=== PATIENT | female | born 1930 | race Caucasian/White ===

== ENCOUNTER 2018-06-19 11:06 | Inpatient (IN) | payer MEDICARE, BC ==
[~2018-06-19] VITALS: Ht 162.6 cm; Wt 95.3 kg
--- NOTE | 2018-06-19 11:09 | NUR ---
PT A/OX4, BIB RA909, C/O N/V X 3 EPISODES OF EMESIS SINCE THIS AM. EMESIS YELLOW IN COLOR IN EMESIS BAG. VSS. SECONDARY COMPLAINT: ABD PAIN, PT IS UNABLE TO PROVIDE ADDITIONAL INFORMATION RE THE ABD PAIN. LAST BM APPROXIMATELY YESTERDAY, PT UNABLE TO PROVIDE ACCURATE INFORMATION. PT DENIES C/P, SOB, DIZZINESS, HEADACHE.
--- NOTE | 2018-06-19 11:10 | NUR ---
Pt unable to provide any information about current home medications.
[2018-06-19] MEDS ORDERED: ONDANSETRON 4 MG/2 ML VIAL IV ONE (11:15)
[2018-06-19] MEDS ORDERED: IV NORMAL SALINE 500 ML BAG IV ONE (11:15)
[2018-06-19] MEDS ORDERED: ONDANSETRON 4 MG/2 ML VIAL ONE (11:24)
[2018-06-19 11:29] LABS: BASOPHILS # (AUTO) 0.1 K/uL (0.0-8.0); BASOPHILS % (AUTO) 0.6 % (0.0-2.0); EOSINOPHILS # (AUTO) 0.2 K/uL (0.0-0.7); EOSINOPHILS % (AUTO) 1.8 % (0.0-7.0); HEMATOCRIT 31.7 % (31.2-41.9); HEMOGLOBIN 10.3 g/dL (10.9-14.3); LYMPHOCYTES # (AUTO) 1.5 K/uL (20.0-40.0); LYMPHOCYTES % (AUTO) 12.8 % (20.5-51.5); MEAN CORPUSCULAR HEMOGLOBIN 27.6 uug (24.7-32.8); MEAN CORPUSCULAR HGB CONC 32 g/dL (32.3-35.6); MEAN CORPUSCULAR VOLUME 85.3 fL (75.5-95.3); MONOCYTES # (AUTO) 0.9 K/uL (2.0-10.0); MONOCYTES % (AUTO) 8.1 % (0.0-11.0); NEUTROPHILS # (AUTO) 8.9 K/uL (1.8-8.9); NEUTROPHILS % (AUTO) 76.7 % (38.5-71.5); PLATELET COUNT (AUTO) 735 K/uL (179-408); RED BLOOD CELL COUNT(AUTO) 3.72 MIL/uL (3.63-4.92); WHITE BLOOD COUNT (AUTO) 11.6 K/uL (3.8-11.8)
--- NOTE | 2018-06-19 11:34 | NUR ---
PT TAKEN TO RADIOLOGY FOR CT SCAN.
[2018-06-19 11:39] LABS: CARBON DIOXIDE 23 mmol/L (21-32); CHLORIDE 100 mmol/L (98-107); CREATININE 1.7 mg/dL (0.6-1.3); GLUCOSE 228 mg/dL (74-106); POTASSIUM 4.8 mmol/L (3.5-5.1); UREA NITROGEN, BLOOD 34 mg/dL (7-18)
[2018-06-19 11:44] LABS: ALANINE AMINOTRANSFERASE 17 U/L (14-59); ALKALINE PHOSPHATASE 106 U/L (50-136); ASPARTATE AMINOTRANSFERASE 17 U/L (15-37); BILIRUBIN,DIRECT 0.1 mg/dL (0.0-0.2); BILIRUBIN,TOTAL 0.4 mg/dL (0.2-1.0); TOTAL PROTEIN, SERUM 7.9 g/dL (6.4-8.2)
--- NOTE | 2018-06-19 11:48 | NUR ---
PT BACK IN ER FROM RADIOLOGY.
[2018-06-19] MEDS ORDERED: CLONIDINE HCL 0.1 MG TABLET PO ONE (12:15)
[2018-06-19] MEDS ORDERED: CLONIDINE HCL 0.1 MG TABLET ONE (12:18)
--- NOTE | 2018-06-19 12:58 | NUR ---
PT TAKEN TO RADIOLOGY FOR CT OF ABD.
[2018-06-19] MEDS ORDERED: IV NORMAL SALINE 500 ML IV ONE (13:07)
--- NOTE | 2018-06-19 13:47 | NUR ---
PAGED EPIC FOR PANEL CALL. AWAITING CALLBACK. ATTEMPT 1.
--- NOTE | 2018-06-19 14:07 | NUR ---
ADMITTING REPORT GIVEN TO REINA NELSON.
--- NOTE | 2018-06-19 14:08 | NUR ---
Pt. admitted to TELE 318, under care of ION BENTLEY. Belongs List completed
[2018-06-19] MEDS ORDERED: DEXTROSE 50% 50 ML DISP.SYRIN IV PRN (14:30)
[2018-06-19] MEDS ORDERED: MAGNESIUM HYDROXIDE 30 ML LIQUID UDC PO PRN (14:30)
[2018-06-19] MEDS ORDERED: HYDROMORPHONE 1 MG/1 ML DISP.SYRIN IV PRN (14:30)
[2018-06-19] MEDS ORDERED: TEMAZEPAM 15 MG CAPSULE PO PRN (14:30)
[2018-06-19] MEDS ORDERED: Z GUARD REMEDY PASTE 57 GM TUBE TOP PRN (14:30)
--- NOTE | 2018-06-19 15:00 | NUR ---
Patient admit to tele 318, BP 152/55 HR 67 at the moment no distress, RA at 96% Safety reinforced
[2018-06-19 15:44] VITALS: BP 152/55
[2018-06-19 16:00] VITALS: BP 152/55
[2018-06-19] MEDS ORDERED: IV NORMAL SALINE 250 ML BAG IV ONE ×2 (16:00)
[2018-06-19] MEDS ORDERED: IV NORMAL SALINE 250 ML IV ONE ×2 (16:15)
[2018-06-19] MEDS: ONDANSETRON 4 MG/2 ML VIAL IV PRN (16:24)
[2018-06-19] MEDS: BLOOD SUGAR DIAGNOSTIC 1 EACH STRIP VI SCH ×2 (16:38→21:01)
[2018-06-19] MEDS: INSULIN REGULAR, HUMAN 300 UNIT/3 ML VIAL SQ PRN (16:51)
[2018-06-19] MEDS: IV NS 1000 ML 1,000 ML IV PRN (16:57)
[2018-06-19 17:20] LABS: *BILIRUBIN,URIN NEGATIVE (NEGATIVE); *BLOOD, URINE 1+ (NEGATIVE); *COLOR,URINE LIGHT YELLOW (YELLOW); *KETONES,URINE NEGATIVE (NEGATIVE); *UROBILINOGEN,URINE 0.2 E.U./dl (NORMAL); LEUKOCYTE ESTERASE ,URINE NEGATIVE (NEGATIVE); NITRITE, URINE NEGATIVE (NEGATIVE); UGLUCOSE NEGATIVE (NEGATIVE)
[2018-06-19 17:37] LABS: *CLARITY,URINE SLIGHTLY HAZY (CLEAR)
[2018-06-19 17:38] LABS: RBC,URINE 20-50 /HPF (0-3)
[2018-06-19 17:39] LABS: BACTERIA,URINE FEW /HPF (NONE SEEN); SQUAMOUS EPITHELIAL CELL,UR FEW /HPF (NONE SEEN); WBC,URINE 0-3 /HPF (0-3)
[2018-06-19] MEDS ORDERED: FURO20TA4 PO (18:17)
[2018-06-19] MEDS ORDERED: SOLI10TA2 PO (18:17)
[2018-06-19] MEDS ORDERED: SITA50TA PO (18:18)
[2018-06-19] MEDS ORDERED: NYST15PO4 TP (18:29)
[2018-06-19] MEDS ORDERED: PANT40TA4 PO (18:29)
[2018-06-19] MEDS ORDERED: ATOR20TA PO (18:29)
[2018-06-19] MEDS ORDERED: PIOG30TA10 PO (18:29)
[2018-06-19] MEDS ORDERED: ASPI81TA31 PO (18:29)
[2018-06-19] MEDS ORDERED: FEBU40TA PO (18:29)
[2018-06-19] MEDS ORDERED: METO100T7 PO (18:29)
[2018-06-19] MEDS ORDERED: GLIM4TAB3 PO (18:29)
[2018-06-19] MEDS: ACETAMINOPHEN 325 MG TABLET PO PRN (18:30)
[2018-06-19] MEDS ORDERED: TICA90TA PO (18:32)
--- NOTE | 2018-06-19 18:55 | NUR ---
PATIENT IS AO 4, NO DISTRESS AT THE MOMENT ON RA 96%, HEADACHE COMPLAINED --> TYLONOL GIVEN, NAUSEA TREATED WITH ZOFRAN ONCE, FLUIDS RUNNING AT 75CC/HR,BS CONTROL W INSULIN, MEDICATION RECONSIL IS DONE SAFETY MAINTAINED
[2018-06-19 19:31] LABS: IRON, SERUM 27 ug/dL (50-175)
[2018-06-19 19:45] LABS: FERRITIN 75 ng/mL (8-252)
--- NOTE | 2018-06-19 20:00 | NUR ---
PATIENT AWAKE IN BED, AAOX3. DENIES PAIN OR ANY DISTRESS AT PRESENT. NO C/O OF HEADACHE OR NAUSEA AT THIS TIME, SAFETY MEASURES IN PLACE, CALL LIGHT LEFT WITHIN PATIENT'S REACH
[2018-06-19 20:04] VITALS: BP 160/49
[2018-06-19] MEDS ORDERED: METOPROLOL TARTRATE 25 MG TABLET PO SCH (21:00)
[2018-06-19] MEDS ORDERED: HEPARIN SODIUM,PORCINE 5,000 UNITS/ML VIAL SQ SCH (21:00)
[2018-06-19] MEDS: INSULIN REGULAR, HUMAN 300 UNITS/3 ML VIAL SQ PRN (21:01)
[2018-06-19] MEDS: CLONIDINE HCL 0.1 MG TABLET PO PRN (21:04)
[2018-06-20 00:05] VITALS: BP 167/50
--- NOTE | 2018-06-20 01:00 | NUR ---
PATIENT'S BP CONTINUES TO BE ELEVATED 167/50 AFTER ADMINISTERING PRN CLONIDINE AT 2103, EDITA STINSON MADE AWARE. NEW ORDERS FOR AMLODIPINE GIVEN. WILL CONTINUE TO MONITOR PATIENT
[2018-06-20] MEDS: AMLODIPINE 5 MG TABLET PO SCH ×3 (01:14→20:07)
[2018-06-20 04:00] VITALS: BP 174/51
[2018-06-20] MEDS: ONDANSETRON 4 MG/2 ML VIAL IV PRN (04:51)
[2018-06-20] MEDS: CLONIDINE HCL 0.1 MG TABLET PO PRN ×2 (06:22→14:14)
[2018-06-20] MEDS: IV NS 1000 ML 1,000 ML IV PRN (06:22)
[2018-06-20] MEDS: BLOOD SUGAR DIAGNOSTIC 1 EACH STRIP VI SCH ×4 (06:28→20:11)
[2018-06-20 07:28] LABS: BASOPHILS # (AUTO) 0.1 K/uL (0.0-8.0); BASOPHILS % (AUTO) 0.5 % (0.0-2.0); EOSINOPHILS # (AUTO) 0.2 K/uL (0.0-0.7); EOSINOPHILS % (AUTO) 2.2 % (0.0-7.0); HEMATOCRIT 29.5 % (31.2-41.9); LYMPHOCYTES # (AUTO) 1.2 K/uL (20.0-40.0); LYMPHOCYTES % (AUTO) 11.1 % (20.5-51.5); MEAN CORPUSCULAR HEMOGLOBIN 28.9 uug (24.7-32.8); MEAN CORPUSCULAR HGB CONC 34 g/dL (32.3-35.6); MEAN CORPUSCULAR VOLUME 85.2 fL (75.5-95.3); MONOCYTES # (AUTO) 0.8 K/uL (2.0-10.0); MONOCYTES % (AUTO) 7.8 % (0.0-11.0); NEUTROPHILS # (AUTO) 8.2 K/uL (1.8-8.9); NEUTROPHILS % (AUTO) 78.4 % (38.5-71.5); PLATELET COUNT (AUTO) 653 K/uL (179-408); RED BLOOD CELL COUNT(AUTO) 3.47 MIL/uL (3.63-4.92); WHITE BLOOD COUNT (AUTO) 10.5 K/uL (3.8-11.8)
[2018-06-20 07:48] LABS: ALANINE AMINOTRANSFERASE 15 U/L (14-59); ALKALINE PHOSPHATASE 91 U/L (50-136); ASPARTATE AMINOTRANSFERASE 19 U/L (15-37); BILIRUBIN,TOTAL 0.4 mg/dL (0.2-1.0); CARBON DIOXIDE 25 mmol/L (21-32); CHLORIDE 105 mmol/L (98-107); CHOLESTEROL 113 mg/dL (<200); CREATININE 1.2 mg/dL (0.6-1.3); GLUCOSE 85 mg/dL (74-106); HDL CHOLESTEROL 40 mg/dL (40-60); MAGNESIUM 1.6 mg/dL (1.8-2.4); PHOSPHOROUS 2.7 mg/dL (2.5-4.9); POTASSIUM 4.2 mmol/L (3.5-5.1); TOTAL PROTEIN, SERUM 6.9 g/dL (6.4-8.2); TRIGLYCERIDES 118 MG/DL (30-150); UREA NITROGEN, BLOOD 23 mg/dL (7-18)
[2018-06-20 07:59] LABS: THYROID STIMULATING HORMONE 1.276 mIU/mL (0.358-3.740)
--- NOTE | 2018-06-20 08:18 | NUR ---
PATIENT IS UNDER TELEMETRY MONITORING, SEEMS ANXIOUS ABOUT CARE, AFTER EXPLAINING HER PLAN OF CARE IN MORE DETAILS SHE BECAME MORE COMPLAINT AND MORE COMFORTABLE
[2018-06-20] MEDS: PANTOPRAZOLE SODIUM 40 MG VIAL IV SCH (08:52)
[2018-06-20] MEDS: ATORVASTATIN 20 MG TABLET PO SCH (08:52)
[2018-06-20] MEDS: METOPROLOL SUCCINATE XL 50 MG TAB.SR.24H PO SCH (08:53)
[2018-06-20] MEDS: OXYBUTYNIN CHLORIDE 5 MG TABLET PO SCH ×3 (08:54→17:08)
[2018-06-20] MEDS: ASPIRIN 81 MG TAB.CHEW PO SCH (08:55)
[2018-06-20] MEDS ORDERED: Medication Not On Formulary EA (Metoprolol Succinate (Toprol Xl) 1 TAB) PO SCH (09:00)
[2018-06-20] MEDS ORDERED: Medication Not On Formulary EA (Solifenacin Succinate (Vesicare) 1 TAB) PO SCH (09:00)
[2018-06-20] MEDS ORDERED: FUROSEMIDE 40 MG/4 ML VIAL IV SCH (09:30)
[2018-06-20] MEDS: ALLOPURINOL 100 MG TABLET PO SCH (11:07)
[2018-06-20] MEDS: MAGNESIUM SULFATE/D5W 100 ML IV SCH ×2 (11:07→17:16)
[2018-06-20] MEDS: TICAGRELOR 90 MG TABLET PO SCH ×2 (11:08→17:14)
[2018-06-20] MEDS: VALSARTAN 160 MG TABLET PO SCH (11:10)
[2018-06-20 11:34] VITALS: BP 152/41
[2018-06-20] MEDS: INSULIN REGULAR, HUMAN 300 UNIT/3 ML VIAL SQ PRN ×2 (12:09→17:11)
--- NOTE | 2018-06-20 13:00 | NUR ---
PATIENT HAS SEEN BY DOCTOR RICHTER, SEE DOCTOR'S NOTES
[2018-06-20] MEDS: HYDROCODONE/APAP 5-325MG TABLET PO PRN (14:13)
--- NOTE | 2018-06-20 14:14 | NUR ---
TO [facility] FOR MRI BRAIN VIA AMBULANCE
--- NOTE | 2018-06-20 16:00 | NUR ---
BACK FROM [facility] MRI NO ACUTE CHANGE IN STATUS
[2018-06-20 16:28] VITALS: BP 156/38
--- NOTE | 2018-06-20 18:13 | NUR ---
PATIENT GOT THE MIDLINE AFTER SHE CAME BACK FROM THE MRI, TROPONIN DAWNED, PATIENT IS RESTING NO DISTRESS SIGNS, CONTINUE HYPERTENSION MANAGEMENT
--- NOTE | 2018-06-20 19:37 | NUR ---
ASLEEP BUT EASILY AROUSABLE, DENIES PAIN OR ANY DISTRESS ON ASSESSMENT. SAFETY MEASURES IN PLACE, CALL LIGHT LEFT WITHIN PATIENT'S REACH. WILL CONTINUE TO MONITOR PATIENT
[2018-06-20 20:09] VITALS: BP 141/49
[2018-06-20] MEDS: ACETAMINOPHEN 325 MG TABLET PO PRN (20:13)
[2018-06-21 04:00] VITALS: BP 165/50
[2018-06-21] MEDS: CLONIDINE HCL 0.1 MG TABLET PO PRN ×2 (05:42→12:04)
[2018-06-21] MEDS: BLOOD SUGAR DIAGNOSTIC 1 EACH STRIP VI SCH ×4 (06:43→20:33)
[2018-06-21 07:12] LABS: BASOPHILS % (AUTO) 0.2 % (0.0-2.0); EOSINOPHILS # (AUTO) 0.3 K/uL (0.0-0.7); HEMATOCRIT 30.4 % (31.2-41.9); HEMOGLOBIN 9.9 g/dL (10.9-14.3); LYMPHOCYTES # (AUTO) 0.5 K/uL (20.0-40.0); LYMPHOCYTES % (AUTO) 5.3 % (20.5-51.5); MEAN CORPUSCULAR HEMOGLOBIN 27.9 uug (24.7-32.8); MEAN CORPUSCULAR HGB CONC 33 g/dL (32.3-35.6); MEAN CORPUSCULAR VOLUME 85.4 fL (75.5-95.3); MONOCYTES # (AUTO) 0.4 K/uL (2.0-10.0); MONOCYTES % (AUTO) 3.7 % (0.0-11.0); NEUTROPHILS # (AUTO) 8.9 K/uL (1.8-8.9); NEUTROPHILS % (AUTO) 87.8 % (38.5-71.5); PLATELET COUNT (AUTO) 639 K/uL (179-408); RED BLOOD CELL COUNT(AUTO) 3.56 MIL/uL (3.63-4.92); WHITE BLOOD COUNT (AUTO) 10.1 K/uL (3.8-11.8)
[2018-06-21 07:36] LABS: CARBON DIOXIDE 25 mmol/L (21-32); CHLORIDE 101 mmol/L (98-107); CREATININE 1.3 mg/dL (0.6-1.3); GLUCOSE 126 mg/dL (74-106); PHOSPHOROUS 2.6 mg/dL (2.5-4.9); POTASSIUM 4.2 mmol/L (3.5-5.1); UREA NITROGEN, BLOOD 24 mg/dL (7-18)
--- NOTE | 2018-06-21 07:52 | NUR ---
AWAKE ALERT AND PLEASANT NO SS OF PAIN OR SOB. CONTINUE WITH CURRENT TX PLAN ORDERED
[2018-06-21] MEDS: ALLOPURINOL 100 MG TABLET PO SCH (09:00)
[2018-06-21] MEDS: PANTOPRAZOLE SODIUM 40 MG VIAL IV SCH (09:40)
[2018-06-21] MEDS: ATORVASTATIN 20 MG TABLET PO SCH (09:41)
[2018-06-21] MEDS: ASPIRIN 81 MG TAB.CHEW PO SCH (09:43)
[2018-06-21] MEDS: VALSARTAN 160 MG TABLET PO SCH (09:43)
[2018-06-21] MEDS: AMLODIPINE 5 MG TABLET PO SCH ×2 (09:44→20:32)
[2018-06-21] MEDS: OXYBUTYNIN CHLORIDE 5 MG TABLET PO SCH ×3 (09:44→16:42)
[2018-06-21] MEDS: METOPROLOL SUCCINATE XL 50 MG TAB.SR.24H PO SCH (09:45)
[2018-06-21] MEDS: TICAGRELOR 90 MG TABLET PO SCH ×2 (09:59→16:42)
[2018-06-21 11:17] LABS: *CREATININE,URINE 63.7 mg/dL (30-125); *URINE TOTAL PROTEIN RANDOM 14.3 mg/dL (<150/24HR)
[2018-06-21] MEDS: INSULIN REGULAR, HUMAN 300 UNIT/3 ML VIAL SQ PRN ×2 (11:40→16:45)
[2018-06-21 11:52] VITALS: BP_SYST 173; BP_SYST 182; BP_DIAS 41; BP_DIAS 45
[2018-06-21] MEDS: HYDROCODONE/APAP 5-325MG TABLET PO PRN (12:07)
[2018-06-21] MEDS ORDERED: FUROSEMIDE 20 MG/2 ML VIAL IV ONE (12:30)
[2018-06-21] MEDS ORDERED: SOD FERRIC GLUC COMPLX/SUCROSE 125 MG in IV NORMAL SALINE 100 ML IV SCH (14:00)
[2018-06-21 15:46] VITALS: BP 154/40
--- NOTE | 2018-06-21 19:40 | NUR ---
RECEIVED PATIENT AWAKE AND ALERT IN BED. NO SIGNS OF ACUTE DISTRESS. NO COMPLAINTS OF PAIN OR SOB. MIDLINE OF THE LEFT UPPER ARM IS INTACT AND PATENT. SAFETY MEASURES INITIATED. BED IS LOW AND LOCKED, CALL LIGHT IS WITHIN REACH. WILL CONTINUE TO MONITOR.
[2018-06-21 20:00] VITALS: BP 156/44
[2018-06-21] MEDS: ACETAMINOPHEN 325 MG TABLET PO PRN (20:31)
[2018-06-22 04:00] VITALS: BP 148/39
[2018-06-22] MEDS: PANTOPRAZOLE SODIUM 40 MG TABLET.DR PO SCH (06:37)
[2018-06-22] MEDS: BLOOD SUGAR DIAGNOSTIC 1 EACH STRIP VI SCH ×4 (06:40→21:26)
[2018-06-22 06:45] LABS: BASOPHILS % (AUTO) 0.2 % (0.0-2.0); EOSINOPHILS # (AUTO) 0.4 K/uL (0.0-0.7); EOSINOPHILS % (AUTO) 4.8 % (0.0-7.0); HEMATOCRIT 29.4 % (31.2-41.9); HEMOGLOBIN 9.9 g/dL (10.9-14.3); LYMPHOCYTES # (AUTO) 0.7 K/uL (20.0-40.0); LYMPHOCYTES % (AUTO) 8.4 % (20.5-51.5); MEAN CORPUSCULAR HEMOGLOBIN 28.7 uug (24.7-32.8); MEAN CORPUSCULAR HGB CONC 34 g/dL (32.3-35.6); MEAN CORPUSCULAR VOLUME 85.4 fL (75.5-95.3); MONOCYTES # (AUTO) 0.5 K/uL (2.0-10.0); MONOCYTES % (AUTO) 6.4 % (0.0-11.0); NEUTROPHILS # (AUTO) 6.7 K/uL (1.8-8.9); NEUTROPHILS % (AUTO) 80.2 % (38.5-71.5); PLATELET COUNT (AUTO) 622 K/uL (179-408); RED BLOOD CELL COUNT(AUTO) 3.44 MIL/uL (3.63-4.92); WHITE BLOOD COUNT (AUTO) 8.3 K/uL (3.8-11.8)
--- NOTE | 2018-06-22 06:49 | NUR ---
PATIENT SLEPT WELL THROUGHOUT SHIFT. NO ACUTE DISTRESS NOTED. PATIENT C/O DIFFICULTY SWALLOWING, ORDERED SWALLOW EVAL. WAS ABLE TO TAKE HER MEDICATIONS. SAFETY MEASURES GIVEN.
[2018-06-22 06:57] LABS: CARBON DIOXIDE 24 mmol/L (21-32); CHLORIDE 101 mmol/L (98-107); CREATININE 1.4 mg/dL (0.6-1.3); GLUCOSE 116 mg/dL (74-106); POTASSIUM 4.1 mmol/L (3.5-5.1); UREA NITROGEN, BLOOD 25 mg/dL (7-18)
[2018-06-22] MEDS ORDERED: FUROSEMIDE 20 MG/2 ML VIAL IV ONE (08:15)
[2018-06-22] MEDS: ALLOPURINOL 100 MG TABLET PO SCH (09:00)
[2018-06-22] MEDS: ATORVASTATIN 20 MG TABLET PO SCH (09:55)
[2018-06-22] MEDS: METOPROLOL SUCCINATE XL 50 MG TAB.SR.24H PO SCH (09:55)
[2018-06-22] MEDS: VALSARTAN 160 MG TABLET PO SCH ×2 (09:55→21:25)
[2018-06-22] MEDS: OXYBUTYNIN CHLORIDE 5 MG TABLET PO SCH ×3 (09:55→17:43)
[2018-06-22] MEDS: AMLODIPINE 5 MG TABLET PO SCH ×2 (09:56→21:23)
[2018-06-22] MEDS: ASPIRIN 81 MG TAB.CHEW PO SCH (09:56)
[2018-06-22] MEDS: TICAGRELOR 90 MG TABLET PO SCH ×2 (10:03→17:43)
[2018-06-22 11:30] VITALS: BP 178/40
[2018-06-22] MEDS: INSULIN REGULAR, HUMAN 300 UNIT/3 ML VIAL SQ PRN (12:36)
[2018-06-22] MEDS: diphenhydrAMINE 50 MG/1 ML VIAL IV PRN (12:49)
--- NOTE | 2018-06-22 14:12 | NUR ---
Patient awake, alert and oriented. No signs of acute distress at this time. Midline access in the left upper arm patent. Safety and comfort measures implemented. Bed on lowest and locked position with side rails up x2. Call light within reach. All needs met at this time. Will continue to monitor throughout shift.
[2018-06-22] MEDS: CLONIDINE HCL 0.1 MG TABLET PO PRN (15:47)
[2018-06-22 16:01] VITALS: BP 161/40
--- NOTE | 2018-06-22 16:48 | NUR ---
Handed patient to REINA Rivas. Report given.
--- NOTE | 2018-06-22 19:00 | NUR ---
PATIENT AWAKE ALERT ORIENTED, NO COMPLAIN OF ACUTE PAIN, CALL LIGHT WITHIN REACH.
[2018-06-22 20:43] VITALS: BP 162/43
[2018-06-22] MEDS ORDERED: FERROUS SULFATE 325 MG TABEC PO SCH (21:00)
--- NOTE | 2018-06-22 21:30 | NUR ---
PATIENT FE MEDICATION NOT GIVEN PATIENT CLAIM THAT SHE ALLERGIC TO IT. PATIENT REFUSED.
[2018-06-22] MEDS: INSULIN REGULAR, HUMAN 300 UNITS/3 ML VIAL SQ PRN (21:31)
--- NOTE | 2018-06-23 01:15 | NUR ---
Received pt resting comfortably in bed, HOB elevated. Easily arousable to name call. No acute distress noted. Safety precautions and comfort measures maintained. Call light within reach. Will continue to monitor closely.
[2018-06-23] MEDS: CLONIDINE HCL 0.1 MG TABLET PO PRN (06:01)
[2018-06-23] MEDS: PANTOPRAZOLE SODIUM 40 MG TABLET.DR PO SCH (06:01)
--- NOTE | 2018-06-23 06:15 | NUR ---
Pt BP 183/43, asymptomatic. Clonidine 0.1 mg PO given. Pt denies pain or discomfort at this time. Will continue to monitor closely.
[2018-06-23 06:18] VITALS: BP 183/43
[2018-06-23] MEDS: BLOOD SUGAR DIAGNOSTIC 1 EACH STRIP VI SCH ×4 (06:35→21:24)
[2018-06-23 07:12] LABS: BASOPHILS % (AUTO) 0.3 % (0.0-2.0); EOSINOPHILS # (AUTO) 0.4 K/uL (0.0-0.7); EOSINOPHILS % (AUTO) 4.4 % (0.0-7.0); HEMATOCRIT 29.3 % (31.2-41.9); HEMOGLOBIN 9.8 g/dL (10.9-14.3); LYMPHOCYTES # (AUTO) 0.9 K/uL (20.0-40.0); LYMPHOCYTES % (AUTO) 9.2 % (20.5-51.5); MEAN CORPUSCULAR HEMOGLOBIN 28.4 uug (24.7-32.8); MEAN CORPUSCULAR HGB CONC 34 g/dL (32.3-35.6); MEAN CORPUSCULAR VOLUME 84.7 fL (75.5-95.3); MONOCYTES # (AUTO) 0.8 K/uL (2.0-10.0); MONOCYTES % (AUTO) 8.1 % (0.0-11.0); NEUTROPHILS # (AUTO) 7.8 K/uL (1.8-8.9); PLATELET COUNT (AUTO) 607 K/uL (179-408); RED BLOOD CELL COUNT(AUTO) 3.46 MIL/uL (3.63-4.92)
[2018-06-23 07:32] LABS: ALANINE AMINOTRANSFERASE 10 U/L (14-59); ALKALINE PHOSPHATASE 88 U/L (50-136); ASPARTATE AMINOTRANSFERASE 14 U/L (15-37); BILIRUBIN,TOTAL 0.4 mg/dL (0.2-1.0); CARBON DIOXIDE 25 mmol/L (21-32); CHLORIDE 102 mmol/L (98-107); CREATININE 1.3 mg/dL (0.6-1.3); GLUCOSE 123 mg/dL (74-106); MAGNESIUM 1.7 mg/dL (1.8-2.4); PHOSPHOROUS 2.5 mg/dL (2.5-4.9); POTASSIUM 4.1 mmol/L (3.5-5.1); TOTAL PROTEIN, SERUM 6.3 g/dL (6.4-8.2); UREA NITROGEN, BLOOD 25 mg/dL (7-18)
[2018-06-23] MEDS ORDERED: FERROUS SULFATE 325 MG TABEC PO SCH (09:00)
[2018-06-23] MEDS: TICAGRELOR 90 MG TABLET PO SCH ×2 (09:48→17:46)
[2018-06-23] MEDS: ASPIRIN 81 MG TAB.CHEW PO SCH (09:49)
[2018-06-23] MEDS: VALSARTAN 160 MG TABLET PO SCH ×2 (09:50→21:23)
[2018-06-23] MEDS: OXYBUTYNIN CHLORIDE 5 MG TABLET PO SCH ×3 (09:51→17:46)
[2018-06-23] MEDS: ATORVASTATIN 20 MG TABLET PO SCH (09:51)
[2018-06-23] MEDS: AMLODIPINE 5 MG TABLET PO SCH ×2 (09:51→21:24)
[2018-06-23] MEDS: METOPROLOL SUCCINATE XL 50 MG TAB.SR.24H PO SCH (09:52)
[2018-06-23] MEDS ORDERED: MAGNESIUM SULFATE/D5W 100 ML IV SCH (11:00)
[2018-06-23 12:00] VITALS: BP 150/31
[2018-06-23] MEDS ORDERED: MAGNESIUM SULFATE 1 GM in IV DEXTROSE 5% 50 ML IV ONE (12:00)
[2018-06-23] MEDS: INSULIN REGULAR, HUMAN 300 UNIT/3 ML VIAL SQ PRN ×2 (12:28→19:22)
[2018-06-23] MEDS ORDERED: BENZOCAINE/MENTH/CETYLPYRD LOZENGE MM PRN (15:45)
[2018-06-23 16:42] VITALS: BP 155/35
--- NOTE | 2018-06-23 17:15 | NUR ---
PATIENT REFUSED INSULIN STATED SHE DIDNT EAT MUCH DINNER. WILL CONTINUE TO MONITOR CLSOELY.
--- NOTE | 2018-06-23 17:26 | NUR ---
Handed patient to REINA Philippe. Report given.
[2018-06-23] MEDS: hydrALAZINE HCL 50 MG TABLET PO SCH ×2 (17:46→21:39)
[2018-06-23] MEDS: FUROSEMIDE 20 MG TABLET PO SCH (17:46)
--- NOTE | 2018-06-23 17:55 | NUR ---
Received nutrition consult on low purine diet. ANNIKA provides verbal and handout on low purine diet, pt understood and stated she is arcadio follow this diet at home. Addendum: 06/23/18 at [address] Amended: Links added.
--- NOTE | 2018-06-23 19:20 | NUR ---
RECEIVED PT AWAKE , ALERT AND ORIENTEDX4. PT SHOWS NO SIGNS OF ACUTE DISTRESS. IV INTACT. CALL LIGHT WITHIN REACH. SAFETY AND COMFORT PROVIDED, WILL CONTINUE TO MONITOR.
[2018-06-23 20:00] VITALS: BP 154/35
--- NOTE | 2018-06-23 20:00 | NUR ---
PT HAVE BRUISES AND REDNESS ON HER UPPER EXTREMITIES AND LOWER EXTREMITIES. PT HAVE REDNESS ON HER FACE SPECIFICALLY HER CHEEK. . NO PICTURE TAKEN. CHARGE NURSE AWARE. SHE SAID ITS FROM HER ALLERGY REGARDING IRON. PT HAD NO ACUTE DISTRESS AND NO SOB. PT VITALS SIGNS WNL. WILL CONTINUE TO MONITOR.
[2018-06-23] MEDS: INSULIN REGULAR, HUMAN 300 UNITS/3 ML VIAL SQ PRN (21:26)
[2018-06-23] MEDS: diphenhydrAMINE 50 MG/1 ML VIAL IV PRN (21:28)
[2018-06-23] MEDS: ACETAMINOPHEN 325 MG TABLET PO PRN (21:35)
[2018-06-23 22:30] VITALS: BP 138/55
[2018-06-23] MEDS: HYDROCODONE/APAP 5-325MG TABLET PO PRN (23:39)
[2018-06-24] MEDS ORDERED: OXYCODONE/APAP 5-325 MG TABLET PO PRN
[2018-06-24 04:00] VITALS: BP 158/46
[2018-06-24] MEDS: hydrALAZINE HCL 50 MG TABLET PO SCH (06:17)
[2018-06-24] MEDS: PANTOPRAZOLE SODIUM 40 MG TABLET.DR PO SCH (06:17)
--- NOTE | 2018-06-24 06:18 | NUR ---
DR. GARCIA ORDERED PERCOCET 5-325MG Q6H PRN FOR SEVERE PAIN OF 8-10 SCALE AT 2356H ON 06/23/18. DR AWARE OF THE ALLERGY. PT INSISTED THAT HER PRIMARY JUST WANT TYLENOL AND PERCOCET FOR HER PAIN MEDICATION BECAUSE SHE HAS CODEINE ALLERGY. PT STABLE. AND IN NO ACUTE DISTRESS. PT TOLERATED THE MEDICATION. WILL CONTINUE TO MONITOR.
--- NOTE | 2018-06-24 06:19 | NUR ---
PT SLEPT THROUGHOUT THE SHIFT. PT SHOWS NO SIGNS OF ACUTE DISTRESS. IV INTACT AND PATENT. PRESCRIBED MEDICATION GIVEN AND PT TOLERATED IT WELL. [facility] CALLED AND TOLD ME THAT THERE'S NO BED YET FOR THE PT. CHARGE NURSE AWARE. SAFETY AND COMFORT PROVIDED. ALL NEEDS ARE MET. WILL ENDORSE ACCORDINGLY TO INCOMING NURSE FOR CONTINUITY OF CARE.
[2018-06-24 06:32] LABS: BASOPHILS % (AUTO) 0.1 % (0.0-2.0); EOSINOPHILS # (AUTO) 0.5 K/uL (0.0-0.7); EOSINOPHILS % (AUTO) 5.5 % (0.0-7.0); HEMATOCRIT 30.3 % (31.2-41.9); LYMPHOCYTES # (AUTO) 0.9 K/uL (20.0-40.0); LYMPHOCYTES % (AUTO) 9.7 % (20.5-51.5); MEAN CORPUSCULAR HGB CONC 33 g/dL (32.3-35.6); MONOCYTES # (AUTO) 0.8 K/uL (2.0-10.0); MONOCYTES % (AUTO) 8.6 % (0.0-11.0); NEUTROPHILS # (AUTO) 6.9 K/uL (1.8-8.9); NEUTROPHILS % (AUTO) 76.1 % (38.5-71.5); PLATELET COUNT (AUTO) 608 K/uL (179-408); RED BLOOD CELL COUNT(AUTO) 3.57 MIL/uL (3.63-4.92); WHITE BLOOD COUNT (AUTO) 9.1 K/uL (3.8-11.8)
[2018-06-24] MEDS: BLOOD SUGAR DIAGNOSTIC 1 EACH STRIP VI SCH ×2 (06:32→11:20)
[2018-06-24 06:33] VITALS: BP 145/78
[2018-06-24 06:46] LABS: CARBON DIOXIDE 24 mmol/L (21-32); CHLORIDE 101 mmol/L (98-107); CREATININE 1.3 mg/dL (0.6-1.3); GLUCOSE 125 mg/dL (74-106); MAGNESIUM 1.8 mg/dL (1.8-2.4); PHOSPHOROUS 2.7 mg/dL (2.5-4.9); POTASSIUM 3.9 mmol/L (3.5-5.1); UREA NITROGEN, BLOOD 25 mg/dL (7-18)
[2018-06-24] MEDS ORDERED: hydrOXYzine HCL 25 MG TABLET PO PRN (08:30)
[2018-06-24] MEDS: TICAGRELOR 90 MG TABLET PO SCH (08:32)
[2018-06-24] MEDS: FUROSEMIDE 20 MG TABLET PO SCH (08:33)
[2018-06-24] MEDS: ASPIRIN 81 MG TAB.CHEW PO SCH (08:33)
[2018-06-24] MEDS: OXYBUTYNIN CHLORIDE 5 MG TABLET PO SCH ×2 (08:33→12:33)
[2018-06-24] MEDS: ATORVASTATIN 20 MG TABLET PO SCH (08:33)
[2018-06-24] MEDS: VALSARTAN 160 MG TABLET PO SCH (08:42)
[2018-06-24] MEDS: AMLODIPINE 5 MG TABLET PO SCH (08:42)
[2018-06-24] MEDS: METOPROLOL SUCCINATE XL 50 MG TAB.SR.24H PO SCH (08:43)
[2018-06-24 11:16] VITALS: BP 151/34
[2018-06-24] MEDS ORDERED: Benzocaine/Menth/Cetylpyrd Cl MM (11:52)
[2018-06-24] MEDS ORDERED: VALS160T2 PO (11:52)
[2018-06-24] MEDS ORDERED: ONDA4VIA23 IV (11:52)
[2018-06-24] MEDS ORDERED: DEXT50DI8 IV (11:52)
[2018-06-24] MEDS ORDERED: HYDR-500 PO (11:52)
[2018-06-24] MEDS ORDERED: Oxycodone/Apap 5-325 Mg PO (11:52)
[2018-06-24] MEDS ORDERED: TEMA15CA5 PO (11:52)
[2018-06-24] MEDS ORDERED: HYDR-3326 PO (11:52)
[2018-06-24] MEDS ORDERED: CLON0.1T14 PO ×2 (11:52)
[2018-06-24] MEDS ORDERED: INSU100V28 SQ ×2 (11:52)
[2018-06-24] MEDS ORDERED: AMLO5TAB9 PO (11:52)
[2018-06-24] MEDS ORDERED: FURO20TA4 PO (11:52)
[2018-06-24] MEDS ORDERED: METO50TA7 PO (11:52)
[2018-06-24] MEDS ORDERED: Oxybutynin Chloride PO (11:52)
[2018-06-24] MEDS ORDERED: PANT40TA2 PO (11:52)
[2018-06-24] MEDS ORDERED: Blood Sugar Diagnostic VI (11:52)
[2018-06-24] MEDS: INSULIN REGULAR, HUMAN 300 UNIT/3 ML VIAL SQ PRN (12:36)
[2018-06-24] MEDS: diphenhydrAMINE 50 MG/1 ML VIAL IV PRN (12:51)
[2018-06-24] MEDS ORDERED: CLONIDINE HCL 0.1 MG TABLET PO SCH (14:00)
[2018-06-24 15:16] VITALS: BP 145/38
--- NOTE | 2018-06-24 16:00 | NUR ---
Patient tolerated routine morning meds crushed with apple sauce. Vitals stable. Midline access in left upper arm patent. Report given to REINA Mcintosh in ARU. Transferred via hospital bed. Addendum: 06/24/18 at 1725 by MASSIMO JONES RN Inaccurate time. Transferred patient after another patient at 1532.
[2018-06-25] MEDS ORDERED: FUROSEMIDE 20 MG TABLET PO SCH (09:00)
[2018-07-12] MEDS ORDERED: ACET325T53 PO (18:42)
[2018-07-12] MEDS ORDERED: GLIM2TAB PO (18:42)
== END 2018-06-24 15:27 | DRG 304 ==
LOC: ER 11:06 → TELE3 14:21 → MEDSURG3 06-20 09:30
PROVIDERS: ADMIT Nurse Practitioner Acute Care; ATTEND Nurse Practitioner Acute Care
PROC: 05HY33Z Insertion of Infusion Device into Upper Vein, Percutaneous Approach (ICD-10-PCS; principal; 2018-06-20)
DX: I16.0 Hypertensive urgency (principal); N17.0 Acute kidney failure with tubular necrosis; E87.1 Hypo-osmolality and hyponatremia; E44.0 Moderate protein-calorie malnutrition; N39.0 Urinary tract infection, site not specified; I13.0 Hypertensive heart and chronic kidney disease with heart failure and stage 1 through stage 4 chronic kidney disease, or unspecified chronic kidney disease; I50.9 Heart failure, unspecified; K57.30 Diverticulosis of large intestine without perforation or abscess without bleeding; I25.10 Atherosclerotic heart disease of native coronary artery without angina pectoris; Z95.5 Presence of coronary angioplasty implant and graft; E83.42 Hypomagnesemia; M10.9 Gout, unspecified; N28.1 Cyst of kidney, acquired; K21.9 Gastro-esophageal reflux disease without esophagitis; K44.9 Diaphragmatic hernia without obstruction or gangrene; I27.20 Pulmonary hypertension, unspecified; E11.22 Type 2 diabetes mellitus with diabetic chronic kidney disease; N18.9 Chronic kidney disease, unspecified; Z79.84 Long term (current) use of oral hypoglycemic drugs; Z79.82 Long term (current) use of aspirin; Z79.899 Other long term (current) drug therapy; E66.9 Obesity, unspecified; Z68.36 Body mass index [BMI] 36.0-36.9, adult; Z71.3 Dietary counseling and surveillance; I70.8 Atherosclerosis of other arteries; I67.2 Cerebral atherosclerosis; I35.8 Other nonrheumatic aortic valve disorders; E11.65 Type 2 diabetes mellitus with hyperglycemia; D64.9 Anemia, unspecified; M89.9 Disorder of bone, unspecified; Z86.73 Personal history of transient ischemic attack (TIA), and cerebral infarction without residual deficits; J47.9 Bronchiectasis, uncomplicated; I70.0 Atherosclerosis of aorta
CPT/HCPCS: 36415; 36569; 70030-TC; 70450; 70551; 71045; 76770; 83550; 83690; 83735; 84100; 84156; 84300; 84443; 85025; 85730; 87086; 92526; 92610; 93005; 93307; 97110; 97116; 97165; 97530; 97535; A4663; C9113; G0378; J1200; J1815; J1940; J2405; J2916; J3475; J3490; J7030; J7060; J8499

== ENCOUNTER 2018-06-24 15:50 | Inpatient (IN) | payer MEDICARE, BC ==
[~2018-06-24] VITALS: Ht 162.6 cm; Wt 95.3 kg
[~2018-06-24 15:50] MED LIST: AMLO5TAB9 PO; ASPI81TA31 PO; ATOR20TA PO; Benzocaine/Menth/Cetylpyrd Cl MM; Blood Sugar Diagnostic VI; CLON0.1T14 PO; DEXT50DI8 IV; FEBU40TA PO; FURO20TA4 PO; GLIM4TAB3 PO; HYDR-3326 PO; HYDR-500 PO; INSU100V28 SQ; METO100T7 PO; METO50TA7 PO; NYST15PO4 TP; ONDA4VIA23 IV; Oxybutynin Chloride PO; Oxycodone/Apap 5-325 Mg PO; PANT40TA2 PO; PANT40TA4 PO; PIOG30TA10 PO; SITA50TA PO; SOLI10TA2 PO; TEMA15CA5 PO; TICA90TA PO; VALS160T2 PO
--- NOTE | 2018-06-24 16:23 | NUR ---
Patient arrived to unit at 1600 via hospital bed from med-surg unit, alert and oriented x4, no complaints of pain at this time, no signs of distress noted, vitals as follows: 145/33, 62 HR, 97% on room air, 97.4 oral temperature, belongings accounted for and belongings sheet signed and placed in chart, MRSA swab completed, MD Reid and Soraida notified of patients arrival
[2018-06-24] MEDS ORDERED: CLONIDINE HCL 0.1 MG TABLET PO PRN (16:30)
[2018-06-24] MEDS ORDERED: ONDANSETRON 4 MG/2 ML VIAL IV PRN (16:30)
[2018-06-24] MEDS ORDERED: OXYCODONE PO PRN (16:30)
[2018-06-24] MEDS ORDERED: DEXTROSE 50% 50 ML DISP.SYRIN IV PRN (16:30)
[2018-06-24] MEDS ORDERED: APAP PO PRN (16:30)
[2018-06-24] MEDS ORDERED: TEMAZEPAM 15 MG CAPSULE PO PRN (16:30)
[2018-06-24] MEDS ORDERED: Medication Not On Formulary EA ([Oxybutynin Chloride] 5 MG) PO SCH (17:00)
[2018-06-24] MEDS ORDERED: NYSTATIN POWDER 15 GM BOTTLE TP SCH (17:00)
[2018-06-24] MEDS: BLOOD SUGAR DIAGNOSTIC 1 EACH STRIP VI SCH ×2 (17:21→20:33)
[2018-06-24] MEDS: INSULIN REGULAR, HUMAN 300 UNIT/3 ML VIAL SQ PRN ×2 (17:36→20:42)
[2018-06-24] MEDS: hydrOXYzine HCL 25 MG TABLET PO PRN (17:37)
[2018-06-24] MEDS: OXYBUTYNIN CHLORIDE 5 MG TABLET PO SCH (17:37)
[2018-06-24] MEDS: TICAGRELOR 90 MG TABLET PO SCH (17:38)
[2018-06-24 19:47] VITALS: BP 167/55
--- NOTE | 2018-06-24 20:00 | NUR ---
Received patient in bed. Patient is alert and verbally responsive. Able to make needs known. Denies any pain and discomfort at this time. No acute distress. No SOB. Kept clean and dry. Able to ambulate with walker to the bathroom with assist. BP noted to be elevated at 167/55, HR 63. Asymptomatic. No c/o nausea or vomiting. No c/o dizziness at this time. Will Re-check BP and give scheduled BP meds as ordered. Kept clean and dry. All needs attended to promptly. Call light within reach. Will continue to monitor.
[2018-06-24] MEDS: OXYCODONE/APAP 5-325 MG TABLET PO PRN (20:34)
[2018-06-24] MEDS: VALSARTAN 160 MG TABLET PO SCH (20:34)
[2018-06-24] MEDS: AMLODIPINE 5 MG TABLET PO SCH (20:34)
[2018-06-24 21:00] VITALS: BP 133/75
[2018-06-24] MEDS: CLONIDINE HCL 0.1 MG TABLET PO SCH (22:30)
[2018-06-25 04:00] VITALS: BP 150/50
[2018-06-25] MEDS: PANTOPRAZOLE SODIUM 40 MG TABLET.DR PO SCH (06:23)
[2018-06-25] MEDS: CLONIDINE HCL 0.1 MG TABLET PO SCH ×3 (06:24→22:49)
[2018-06-25] MEDS: BLOOD SUGAR DIAGNOSTIC 1 EACH STRIP VI SCH ×4 (06:30→21:15)
--- NOTE | 2018-06-25 07:45 | NUR ---
Patient received while sitting in the wheelchair and watching TV. AAO x4. No acute distress or SOB was noted. On room air. No complain of pain at this time. Patient assessed. V/S checked. Safety measures maintained, Fall precaution observed, Bed in low position, brake and alarm on, side rails up x2 for safety. Continue to monitor.
--- NOTE | 2018-06-25 07:56 | NUR ---
Patient noted resting in bed resting in bed with eyes closed, no complaints of pain at this time, call light in reach, bed locked and in lowest positon, all needs met at this time
[2018-06-25] MEDS: FUROSEMIDE 20 MG TABLET PO SCH (08:59)
[2018-06-25] MEDS: ATORVASTATIN 20 MG TABLET PO SCH (09:00)
[2018-06-25] MEDS: ASPIRIN 81 MG TAB.CHEW PO SCH (09:00)
[2018-06-25] MEDS: TICAGRELOR 90 MG TABLET PO SCH ×2 (09:01→16:36)
[2018-06-25] MEDS: OXYBUTYNIN CHLORIDE 5 MG TABLET PO SCH ×3 (09:01→16:37)
[2018-06-25] MEDS: hydrOXYzine HCL 25 MG TABLET PO PRN ×2 (09:01→16:37)
[2018-06-25] MEDS: AMLODIPINE 5 MG TABLET PO SCH ×2 (09:09→20:56)
[2018-06-25] MEDS: METOPROLOL SUCCINATE XL 50 MG TAB.SR.24H PO SCH (09:09)
[2018-06-25] MEDS: VALSARTAN 160 MG TABLET PO SCH ×2 (09:10→20:56)
[2018-06-25] MEDS: INSULIN REGULAR, HUMAN 300 UNIT/3 ML VIAL SQ PRN ×2 (12:11→21:18)
[2018-06-25] MEDS: BENZOCAINE/MENTH/CETYLPYRD LOZENGE MM PRN (14:35)
[2018-06-25 15:12] VITALS: BP 173/40
--- NOTE | 2018-06-25 19:26 | NUR ---
NO COMPLAINTS OF PAIN THIS SHIFT, NO SIGNS OF DISTRESS, PRN ATARAX GIVEN FOR ITCHINESS
[2018-06-25 19:45] VITALS: BP 146/43
[2018-06-25] MEDS: OXYCODONE/APAP 5-325 MG TABLET PO PRN (22:52)
[2018-06-26 05:43] VITALS: BP 140/32
[2018-06-26] MEDS: PANTOPRAZOLE SODIUM 40 MG TABLET.DR PO SCH (06:54)
[2018-06-26] MEDS: CLONIDINE HCL 0.1 MG TABLET PO SCH ×3 (06:54→22:47)
[2018-06-26] MEDS: BLOOD SUGAR DIAGNOSTIC 1 EACH STRIP VI SCH ×4 (07:06→20:28)
[2018-06-26 08:35] VITALS: BP 140/29
[2018-06-26] MEDS: OXYBUTYNIN CHLORIDE 5 MG TABLET PO SCH ×3 (09:16→17:59)
[2018-06-26] MEDS: ASPIRIN 81 MG TAB.CHEW PO SCH (09:16)
[2018-06-26] MEDS: ATORVASTATIN 20 MG TABLET PO SCH (09:16)
[2018-06-26] MEDS: FUROSEMIDE 20 MG TABLET PO SCH (09:16)
[2018-06-26] MEDS: TICAGRELOR 90 MG TABLET PO SCH ×2 (09:17→18:07)
--- NOTE | 2018-06-26 09:42 | NUR ---
Dr. Reid in the unit and notified him regarding blood pressure with low diastolic BP 140/29 and 144/34. Per MD its OK to administer all 3 due BP medications.
[2018-06-26] MEDS: VALSARTAN 160 MG TABLET PO SCH ×2 (10:00→20:34)
[2018-06-26] MEDS: AMLODIPINE 5 MG TABLET PO SCH ×2 (10:01→20:34)
[2018-06-26] MEDS: METOPROLOL SUCCINATE XL 50 MG TAB.SR.24H PO SCH (10:03)
[2018-06-26] MEDS: INSULIN REGULAR, HUMAN 300 UNIT/3 ML VIAL SQ PRN ×2 (12:16→20:32)
--- NOTE | 2018-06-26 16:20 | NUR ---
INTERDISCIPLINARY TEAM CONFERENCE
[2018-06-26 20:22] VITALS: BP 155/91
[2018-06-26] MEDS: OXYCODONE/APAP 5-325 MG TABLET PO PRN (20:33)
[2018-06-26] MEDS ORDERED: hydrALAZINE HCL 25 MG TABLET PO PRN (21:30)
[2018-06-27] MEDS: CLONIDINE HCL 0.1 MG TABLET PO SCH ×3 (06:27→21:02)
[2018-06-27] MEDS: PANTOPRAZOLE SODIUM 40 MG TABLET.DR PO SCH (06:27)
[2018-06-27] MEDS: BLOOD SUGAR DIAGNOSTIC 1 EACH STRIP VI SCH ×4 (06:30→21:06)
[2018-06-27 06:54] VITALS: BP 163/45
[2018-06-27] MEDS: INSULIN REGULAR, HUMAN 300 UNIT/3 ML VIAL SQ PRN ×4 (07:18→21:11)
[2018-06-27 08:04] VITALS: BP_SYST 124; BP_DIAS 25; BP_DIAS 37
--- NOTE | 2018-06-27 08:05 | NUR ---
Received patient, awake, alert x4. Not in any form of distress. On room air. No SOB, chest pains or S/S of hypoglycemia. No pain noted at this time. Morning care done, oral care done. Offered ice chips for dry mouth.
[2018-06-27 08:44] LABS: BASOPHILS % (AUTO) 0.4 % (0.0-2.0); EOSINOPHILS # (AUTO) 0.4 K/uL (0.0-0.7); EOSINOPHILS % (AUTO) 5.2 % (0.0-7.0); HEMATOCRIT 28.1 % (31.2-41.9); HEMOGLOBIN 9.4 g/dL (10.9-14.3); LYMPHOCYTES # (AUTO) 0.9 K/uL (20.0-40.0); LYMPHOCYTES % (AUTO) 10.7 % (20.5-51.5); MEAN CORPUSCULAR HEMOGLOBIN 28.4 uug (24.7-32.8); MEAN CORPUSCULAR HGB CONC 33 g/dL (32.3-35.6); MONOCYTES # (AUTO) 0.7 K/uL (2.0-10.0); NEUTROPHILS # (AUTO) 6.1 K/uL (1.8-8.9); NEUTROPHILS % (AUTO) 74.7 % (38.5-71.5); PLATELET COUNT (AUTO) 576 K/uL (179-408); RED BLOOD CELL COUNT(AUTO) 3.31 MIL/uL (3.63-4.92); WHITE BLOOD COUNT (AUTO) 8.2 K/uL (3.8-11.8)
[2018-06-27 08:57] LABS: ALANINE AMINOTRANSFERASE 14 U/L (14-59); ALKALINE PHOSPHATASE 91 U/L (50-136); ASPARTATE AMINOTRANSFERASE 12 U/L (15-37); BILIRUBIN,TOTAL 0.4 mg/dL (0.2-1.0); CARBON DIOXIDE 25 mmol/L (21-32); CHLORIDE 96 mmol/L (98-107); CREATININE 1.3 mg/dL (0.6-1.3); GLUCOSE 152 mg/dL (74-106); MAGNESIUM 1.6 mg/dL (1.8-2.4); PHOSPHOROUS 3.2 mg/dL (2.5-4.9); POTASSIUM 4.4 mmol/L (3.5-5.1); TOTAL PROTEIN, SERUM 6.2 g/dL (6.4-8.2); UREA NITROGEN, BLOOD 29 mg/dL (7-18)
[2018-06-27] MEDS: VALSARTAN 160 MG TABLET PO SCH ×2 (09:43→21:02)
[2018-06-27] MEDS: METOPROLOL SUCCINATE XL 50 MG TAB.SR.24H PO SCH (09:43)
[2018-06-27] MEDS: TICAGRELOR 90 MG TABLET PO SCH (09:44)
[2018-06-27] MEDS: OXYBUTYNIN CHLORIDE 5 MG TABLET PO SCH ×3 (09:44→16:41)
[2018-06-27] MEDS: ASPIRIN 81 MG TAB.CHEW PO SCH (09:44)
[2018-06-27] MEDS: FUROSEMIDE 20 MG TABLET PO SCH (09:44)
[2018-06-27] MEDS: AMLODIPINE 5 MG TABLET PO SCH ×2 (11:42→21:01)
[2018-06-27] MEDS: OXYCODONE/APAP 5-325 MG TABLET PO PRN (12:40)
--- NOTE | 2018-06-27 13:00 | NUR ---
With son at bedside. Home medication Brilinta 1 bottle brought by son and given to pharmacy.
[2018-06-27] MEDS ORDERED: MAGNESIUM OXIDE 400 MG TABLET PO ONE (15:30)
--- NOTE | 2018-06-27 15:53 | NUR ---
Up with physical therapy, tolerating well. Was able to ambulate around the unit. PRN Percocet given prior for lower back pain
[2018-06-27 16:21] VITALS: BP 152/30
[2018-06-27] MEDS: [UNRECOGNIZED DRUG - OTHER] PO SCH (16:41)
[2018-06-27] MEDS: MIRALAX 17 GM POWD.PACK PO SCH (16:41)
--- NOTE | 2018-06-27 19:25 | NUR ---
SBAR RECEIVED FROM DAY SHIFT NURSE. PATIENT ALERT AND ORIENTED X 4. INDIAN SPEAKING. PATIENT IS HAS PLEASANT DEMEANOR, AND IS RESTING IN BED WATCHING TV. NO C/O PAIN OR SOB UPON ASSESSMENT. CALL LIGHT AND FREQUENTLY USED ITEMS WITHIN REACH. WILL CONTINUE TO MONITOR.
[2018-06-27 19:35] VITALS: BP 139/36
[2018-06-27] MEDS: ATORVASTATIN 10 MG TABLET PO SCH (21:02)
[2018-06-28 05:14] VITALS: BP 144/43
[2018-06-28] MEDS: CLONIDINE HCL 0.1 MG TABLET PO SCH ×3 (06:25→22:14)
[2018-06-28] MEDS: PANTOPRAZOLE SODIUM 40 MG TABLET.DR PO SCH (06:25)
[2018-06-28] MEDS: BLOOD SUGAR DIAGNOSTIC 1 EACH STRIP VI SCH ×4 (06:30→20:52)
--- NOTE | 2018-06-28 06:49 | NUR ---
PATIENT SLEPT DURING BODY PAINTER. ALL DUE MEDICATIONS GIVEN-TOLERATED WELL. ASSISTED WITH NIGHT TIME ADLS. SIDE RAILS UP BILATERALLY FOR SAFETY. CALL LIGHT AND FREQUENTLY USED ITEMS WITHIN REACH. WILL ENDORSE TO ONCOMING SHIFT ACCORDINGLY.
[2018-06-28 08:00] VITALS: BP 154/42
[2018-06-28] MEDS: VALSARTAN 160 MG TABLET PO SCH ×2 (08:43→20:52)
[2018-06-28] MEDS: METOPROLOL SUCCINATE XL 50 MG TAB.SR.24H PO SCH (08:43)
[2018-06-28] MEDS: FUROSEMIDE 20 MG TABLET PO SCH (08:43)
[2018-06-28] MEDS: hydrOXYzine HCL 25 MG TABLET PO PRN ×2 (08:44→16:55)
[2018-06-28] MEDS: OXYBUTYNIN CHLORIDE 5 MG TABLET PO SCH ×3 (08:44→16:55)
[2018-06-28] MEDS: [UNRECOGNIZED DRUG - OTHER] PO SCH ×2 (08:44→16:55)
[2018-06-28] MEDS: AMLODIPINE 5 MG TABLET PO SCH ×2 (08:44→20:53)
[2018-06-28] MEDS: ASPIRIN 81 MG TAB.CHEW PO SCH (08:44)
[2018-06-28] MEDS: MIRALAX 17 GM POWD.PACK PO SCH (08:45)
[2018-06-28] MEDS: INSULIN REGULAR, HUMAN 300 UNIT/3 ML VIAL SQ PRN ×3 (08:56→20:58)
--- NOTE | 2018-06-28 11:18 | NUR ---
Patient noted being assisted to wheelchair at this time by physical therapy, no complaints of pain, no signs of distress noted, PRN Atarax given for itchiness, call light in reach, wheelchair locked, all needs met
[2018-06-28] MEDS: BENZOCAINE/MENTH/CETYLPYRD LOZENGE MM PRN (12:39)
[2018-06-28] MEDS: OXYCODONE/APAP 5-325 MG TABLET PO PRN (13:29)
[2018-06-28 16:35] VITALS: BP 114/56
[2018-06-28 19:40] VITALS: BP 129/45
--- NOTE | 2018-06-28 19:40 | NUR ---
Patient received in bed. AAO x4. No acute distress or SOB was noted. On room air. No complain of pain at this time. Patient assessed. V/S checked. Safety measures maintained, Fall precaution observed, Bed in low position, brake and alarm on, side rails up x2 for safety. Continue to monitor.
[2018-06-28 20:17] VITALS: BP 129/45
[2018-06-28] MEDS: ATORVASTATIN 10 MG TABLET PO SCH (20:53)
[2018-06-29 05:50] VITALS: BP 152/42
[2018-06-29] MEDS: PANTOPRAZOLE SODIUM 40 MG TABLET.DR PO SCH (07:06)
[2018-06-29] MEDS: CLONIDINE HCL 0.1 MG TABLET PO SCH ×3 (07:06→21:56)
[2018-06-29] MEDS: BLOOD SUGAR DIAGNOSTIC 1 EACH STRIP VI SCH ×4 (07:19→20:16)
[2018-06-29 08:00] VITALS: BP 133/34
[2018-06-29] MEDS: FUROSEMIDE 20 MG TABLET PO SCH (08:49)
[2018-06-29] MEDS: VALSARTAN 160 MG TABLET PO SCH ×2 (08:49→20:14)
[2018-06-29] MEDS: METOPROLOL SUCCINATE XL 50 MG TAB.SR.24H PO SCH (08:50)
[2018-06-29] MEDS: AMLODIPINE 5 MG TABLET PO SCH ×2 (08:51→20:15)
[2018-06-29] MEDS: ASPIRIN 81 MG TAB.CHEW PO SCH (08:51)
[2018-06-29] MEDS: [UNRECOGNIZED DRUG - OTHER] PO SCH ×2 (08:51→16:37)
[2018-06-29] MEDS: MIRALAX 17 GM POWD.PACK PO SCH (08:52)
[2018-06-29] MEDS: OXYBUTYNIN CHLORIDE 5 MG TABLET PO SCH ×3 (08:52→16:36)
[2018-06-29] MEDS: INSULIN REGULAR, HUMAN 300 UNIT/3 ML VIAL SQ PRN ×4 (08:58→20:21)
--- NOTE | 2018-06-29 09:21 | NUR ---
Received pt. on bed, comfortable in no distress. A/OX3 and able to make her needs known. Denies CP or SOB, on RA tolerating well with sat 96%. All due medications administered as ordered and tolerated well. Held metoprolol XL for low pulse (51). No s/sx of hypo/hyperglycemia noted. Pt. requesting for Nystatin powder for Lt. breastfold redness, will notify MD. Safety measures in place. Call light and all frequently used items within pt. reach.
[2018-06-29 16:28] VITALS: BP 159/36
[2018-06-29 18:08] VITALS: BP 139/39
--- NOTE | 2018-06-29 18:37 | NUR ---
End of shift note: All due medications administered as ordered and tolerated well. No sign of acute distress or SOB was noted. Kept pt clean and dry throughout this shift. No s/sx of hypo/hyperglycemia. LT. upper arm midline remain patent and intact with no s/s of IV complication. Safety measures maintained. All needs attended and met promptly. Bed in low position, brake and alarm on, side rails up x2 as an enabler. Call light and all frequently used items within pt. reach. Will endorse to next shift accordingly.
[2018-06-29 20:11] VITALS: BP 142/39
[2018-06-29] MEDS: ATORVASTATIN 10 MG TABLET PO SCH (20:14)
[2018-06-29] MEDS: OXYCODONE/APAP 5-325 MG TABLET PO PRN (20:15)
--- NOTE | 2018-06-30 03:36 | NUR ---
Assisted patient back into bed after assisting to the restroom. Patient attempted to push herself up higher on the bed when her right forearm hit the corner of the tissue box beside her on the bed. Upon assessment, noted with small skin tear. Cleansed with soap and water, pat dry and applied dry dressing on. Patient denies pain or discomfort, only upon contact. Picture taken and placed in chart. Patient verbalized understanding. Tissue box placed on side table, within reach. Call light within reach. Will continue to monitor. Addendum: 06/30/18 at 0346 by Raudel Sellers RN Error in documentation. Wound was cleansed with NS, pat dry and dry dressing applied.
[2018-06-30 05:25] VITALS: BP 125/39
[2018-06-30] MEDS: CLONIDINE HCL 0.1 MG TABLET PO SCH ×3 (05:31→21:23)
--- NOTE | 2018-06-30 05:42 | NUR ---
Held both 2200 & 0600 Catapres 0.1 mg due to low diastolic pressure 133/29 (2200) and 125/39 (0500). Pt verbalized understanding. Safety maintained. Will endorse to oncoming shift. Call light within reach. Will continue to monitor.
[2018-06-30] MEDS: BLOOD SUGAR DIAGNOSTIC 1 EACH STRIP VI SCH ×4 (06:40→20:41)
[2018-06-30] MEDS: PANTOPRAZOLE SODIUM 40 MG TABLET.DR PO SCH (06:40)
[2018-06-30] MEDS: INSULIN REGULAR, HUMAN 300 UNIT/3 ML VIAL SQ PRN ×3 (07:38→16:51)
--- NOTE | 2018-06-30 08:00 | NUR ---
Received patient, awake, alert x3-4, resting in bed. Denies any pain. On room air tolerating well. No SOB or chest pains noted. Morning care done, oral care done. Will continue to monitor.
[2018-06-30] MEDS: METOPROLOL SUCCINATE XL 50 MG TAB.SR.24H PO SCH (08:15)
[2018-06-30] MEDS: [UNRECOGNIZED DRUG - OTHER] PO SCH ×2 (08:15→16:52)
[2018-06-30] MEDS: FUROSEMIDE 20 MG TABLET PO SCH (08:15)
[2018-06-30] MEDS: OXYBUTYNIN CHLORIDE 5 MG TABLET PO SCH ×3 (08:15→16:52)
[2018-06-30] MEDS: VALSARTAN 160 MG TABLET PO SCH ×2 (08:16→20:42)
[2018-06-30] MEDS: MIRALAX 17 GM POWD.PACK PO SCH (08:16)
[2018-06-30] MEDS: ASPIRIN 81 MG TAB.CHEW PO SCH (08:16)
[2018-06-30] MEDS: AMLODIPINE 5 MG TABLET PO SCH ×2 (08:16→20:42)
[2018-06-30 09:00] VITALS: BP 154/44
--- NOTE | 2018-06-30 15:30 | NUR ---
Up with physical therapy, with some SOB no chest pains SPO2 at 95%. Was able to ambulate, no pain noted.
[2018-06-30 17:30] VITALS: BP 148/36
--- NOTE | 2018-06-30 18:45 | NUR ---
Patient fell, while assisting patient to the bathroom. Patient was standing up and lost balance and fell on her right side hitting the side, arm rest of the wheel chair. Patient awake, alert x4. No loss of consciousness, no SOB or chest pains. Patient had a skin tear on right lower back, and with pain over right shoulder and back area. BP- 164/37 NE- 66, SPO2- 94 T-97.6. Informed Dr Fontenot and Dr Quigley of incident. Dr. Fontenot ordered right shoulder Xray, right hip and pelvis. Informed Son, Alejo of incident as well.
[2018-06-30] MEDS: OXYCODONE/APAP 5-325 MG TABLET PO PRN (19:17)
--- NOTE | 2018-06-30 19:40 | NUR ---
Received pt in bed, AAO x 4 watching television. No acute distress noted. C/O generalized pain 10/10 pain scale, mainly on right side. Pt S/P fall from AM shift. VSS & WNL. PRN Percocet given as ordered by MD, tolerated well with good effect. Able to verbalize needs. All safety measures and fall precautions maintained. Call light and all personal belongings within reach. Will continue to monitor.
[2018-06-30 19:56] VITALS: BP 147/80
--- NOTE | 2018-06-30 20:00 | NUR ---
Speech Assistant in to take xrays per MD order. Safety maintained.
[2018-06-30 20:39] VITALS: BP 135/23
[2018-06-30] MEDS: ATORVASTATIN 10 MG TABLET PO SCH (20:41)
--- NOTE | 2018-06-30 20:47 | NUR ---
BS checked, noted to be 149. Patient refusing sliding scale coverage at this time. Offered x 3, explained risks and benefits. Patient verbalized understanding but continued to refuse, stating "it's okay, I'm not going to eat anything." BP medication held at this time due to low diastolic 134/23. Patient verbalized understanding. Safety maintained. Call light within reach. Will continue to monitor.
[2018-07-01] MEDS: OXYCODONE/APAP 5-325 MG TABLET PO PRN ×3 (03:41→20:16)
[2018-07-01 04:32] VITALS: BP 143/25
[2018-07-01] MEDS: CLONIDINE HCL 0.1 MG TABLET PO SCH ×3 (06:00→22:00)
[2018-07-01] MEDS: PANTOPRAZOLE SODIUM 40 MG TABLET.DR PO SCH (06:27)
[2018-07-01] MEDS: BLOOD SUGAR DIAGNOSTIC 1 EACH STRIP VI SCH ×4 (06:31→20:08)
--- NOTE | 2018-07-01 06:33 | NUR ---
Pt refused pictures at this time. Educated on importance, but stated that she "would rather do it during the day". Safety maintained. Call light within reach. Will endorse accordingly to oncoming shift.
--- NOTE | 2018-07-01 06:36 | NUR ---
Catapres held at this time due to low diastolic BP (142/25). Pt verbalized understanding. Safety maintained. Call light within reach. Will endorse accordingly to oncoming shift.
[2018-07-01 07:14] LABS: BASOPHILS # (AUTO) 0.1 K/uL (0.0-8.0); BASOPHILS % (AUTO) 0.8 % (0.0-2.0); EOSINOPHILS # (AUTO) 0.2 K/uL (0.0-0.7); HEMATOCRIT 26.7 % (31.2-41.9); HEMOGLOBIN 8.9 g/dL (10.9-14.3); LYMPHOCYTES # (AUTO) 1.2 K/uL (20.0-40.0); LYMPHOCYTES % (AUTO) 13.9 % (20.5-51.5); MEAN CORPUSCULAR HEMOGLOBIN 28.2 uug (24.7-32.8); MEAN CORPUSCULAR HGB CONC 34 g/dL (32.3-35.6); MEAN CORPUSCULAR VOLUME 84.3 fL (75.5-95.3); NEUTROPHILS # (AUTO) 5.9 K/uL (1.8-8.9); NEUTROPHILS % (AUTO) 70.3 % (38.5-71.5); PLATELET COUNT (AUTO) 550 K/uL (179-408); RED BLOOD CELL COUNT(AUTO) 3.17 MIL/uL (3.63-4.92); WHITE BLOOD COUNT (AUTO) 8.3 K/uL (3.8-11.8)
[2018-07-01 07:29] LABS: CARBON DIOXIDE 25 mmol/L (21-32); CHLORIDE 94 mmol/L (98-107); CREATININE 1.3 mg/dL (0.6-1.3); GLUCOSE 148 mg/dL (74-106); MAGNESIUM 1.7 mg/dL (1.8-2.4); PHOSPHOROUS 2.8 mg/dL (2.5-4.9); POTASSIUM 4.9 mmol/L (3.5-5.1); UREA NITROGEN, BLOOD 25 mg/dL (7-18)
[2018-07-01 08:45] VITALS: BP 134/80
[2018-07-01] MEDS: METOPROLOL SUCCINATE XL 50 MG TAB.SR.24H PO SCH (08:49)
[2018-07-01] MEDS: MIRALAX 17 GM POWD.PACK PO SCH (08:49)
[2018-07-01] MEDS: [UNRECOGNIZED DRUG - OTHER] PO SCH ×2 (08:50→16:41)
[2018-07-01] MEDS: ASPIRIN 81 MG TAB.CHEW PO SCH (08:50)
[2018-07-01] MEDS: AMLODIPINE 5 MG TABLET PO SCH ×2 (08:50→20:06)
[2018-07-01] MEDS: OXYBUTYNIN CHLORIDE 5 MG TABLET PO SCH ×3 (08:50→16:42)
[2018-07-01] MEDS: FUROSEMIDE 20 MG TABLET PO SCH (08:50)
[2018-07-01] MEDS: VALSARTAN 160 MG TABLET PO SCH ×2 (08:50→20:06)
[2018-07-01] MEDS ORDERED: IV NORMAL SALINE 250 ML IV ONE (12:00)
[2018-07-01] MEDS ORDERED: IV NORMAL SALINE 500 ML IV ONE (12:00)
[2018-07-01] MEDS: INSULIN REGULAR, HUMAN 300 UNIT/3 ML VIAL SQ PRN ×3 (12:21→20:13)
[2018-07-01] MEDS: MAGNESIUM SULFATE/D5W 100 ML IV SCH ×2 (13:41→15:00)
--- NOTE | 2018-07-01 14:25 | NUR ---
Notified Ilya Fontenot DNP regarding her BP 147/38 and asked if OK to administer due clonidine at this time with low diastolic BP 38. Per DNP its OK to administer clonidine.
[2018-07-01 16:58] VITALS: BP 145/48
--- NOTE | 2018-07-01 19:00 | NUR ---
Received patient awake and alert, busy talking on the phone. No s/s of pain/discomforts noted. HOB elevated. Safety measure and fall precaution maintained. Continue care as planned.
[2018-07-01 19:36] VITALS: BP 136/35
[2018-07-01] MEDS: ATORVASTATIN 10 MG TABLET PO SCH (20:04)
--- NOTE | 2018-07-01 20:26 | NUR ---
seen by Dr. Quigley today with no new order noted. Complaint of right side pain d/t previous fall, medicated with Percocet as ordered and needed. Will monitor.
--- NOTE | 2018-07-01 22:04 | NUR ---
Clonidine not given BP 108/30. Will monitor.
[2018-07-02 05:26] VITALS: BP 148/39
[2018-07-02] MEDS: CLONIDINE HCL 0.1 MG TABLET PO SCH ×3 (06:17→23:10)
[2018-07-02] MEDS: PANTOPRAZOLE SODIUM 40 MG TABLET.DR PO SCH (06:17)
[2018-07-02] MEDS: BLOOD SUGAR DIAGNOSTIC 1 EACH STRIP VI SCH ×4 (06:22→20:52)
--- NOTE | 2018-07-02 06:32 | NUR ---
Shift End Report: Slept well after been medicated for pain. Requested not to be bothered after voiding. Attended needs. No fall/injury. Continue current rehab plan of care.
[2018-07-02 08:30] VITALS: BP 157/43
[2018-07-02] MEDS: MIRALAX 17 GM POWD.PACK PO SCH (08:37)
[2018-07-02] MEDS: OXYCODONE/APAP 5-325 MG TABLET PO PRN ×2 (08:37→18:23)
[2018-07-02] MEDS: ASPIRIN 81 MG TAB.CHEW PO SCH (08:37)
[2018-07-02] MEDS: OXYBUTYNIN CHLORIDE 5 MG TABLET PO SCH ×3 (08:38→17:28)
[2018-07-02] MEDS: [UNRECOGNIZED DRUG - OTHER] PO SCH ×2 (08:39→17:27)
[2018-07-02] MEDS: METOPROLOL SUCCINATE XL 50 MG TAB.SR.24H PO SCH (08:48)
[2018-07-02] MEDS: AMLODIPINE 5 MG TABLET PO SCH ×2 (10:59→20:52)
[2018-07-02] MEDS: VALSARTAN 160 MG TABLET PO SCH ×2 (10:59→20:53)
[2018-07-02 11:16] LABS: CARBON DIOXIDE 23 mmol/L (21-32); CHLORIDE 91 mmol/L (98-107); CREATININE 1.4 mg/dL (0.6-1.3); GLUCOSE 214 mg/dL (74-106); MAGNESIUM 2.2 mg/dL (1.8-2.4); POTASSIUM 5.1 mmol/L (3.5-5.1); UREA NITROGEN, BLOOD 25 mg/dL (7-18)
[2018-07-02] MEDS ORDERED: IV NORMAL SALINE 250 ML IV ONE (11:45)
[2018-07-02] MEDS: INSULIN REGULAR, HUMAN 300 UNIT/3 ML VIAL SQ PRN (12:10)
--- NOTE | 2018-07-02 13:55 | NUR ---
Patient up ambulating with a walker with the physical therapist, tolerating therapy, no complain of any discomfort, not in distress.
[2018-07-02] MEDS: SODIUM CHLORIDE 1,000 MG TABLET PO SCH ×2 (14:06→17:27)
[2018-07-02 17:48] VITALS: BP 150/39
--- NOTE | 2018-07-02 17:51 | NUR ---
Patient refused to receive insulin per sliding scale, explained risks and benefits but patient still refused.
[2018-07-02 19:56] VITALS: BP 136/55
[2018-07-02] MEDS: ATORVASTATIN 10 MG TABLET PO SCH (20:52)
[2018-07-02 23:09] VITALS: BP 134/63
[2018-07-03] MEDS: OXYCODONE/APAP 5-325 MG TABLET PO PRN ×2 (05:41→21:20)
[2018-07-03] MEDS: CLONIDINE HCL 0.1 MG TABLET PO SCH ×3 (05:45→21:21)
[2018-07-03] MEDS: PANTOPRAZOLE SODIUM 40 MG TABLET.DR PO SCH (06:04)
[2018-07-03 06:21] VITALS: BP 165/35
[2018-07-03 07:25] LABS: CARBON DIOXIDE 23 mmol/L (21-32); CHLORIDE 94 mmol/L (98-107); CREATININE 1.2 mg/dL (0.6-1.3); GLUCOSE 161 mg/dL (74-106); PHOSPHOROUS 3.2 mg/dL (2.5-4.9); POTASSIUM 5.4 mmol/L (3.5-5.1); UREA NITROGEN, BLOOD 25 mg/dL (7-18); URIC ACID 10.3 mg/dL (2.6-6.0)
[2018-07-03] MEDS: BLOOD SUGAR DIAGNOSTIC 1 EACH STRIP VI SCH ×4 (07:31→20:48)
[2018-07-03] MEDS: INSULIN REGULAR, HUMAN 300 UNIT/3 ML VIAL SQ PRN ×4 (07:57→20:55)
[2018-07-03 08:00] LABS: THYROID STIMULATING HORMONE 1.634 mIU/mL (0.358-3.740)
[2018-07-03] MEDS: MIRALAX 17 GM POWD.PACK PO SCH (08:06)
[2018-07-03] MEDS: VALSARTAN 160 MG TABLET PO SCH ×2 (08:07→20:48)
[2018-07-03] MEDS: SODIUM CHLORIDE 1,000 MG TABLET PO SCH ×3 (08:07→17:24)
[2018-07-03] MEDS: [UNRECOGNIZED DRUG - OTHER] PO SCH ×2 (08:07→17:24)
[2018-07-03] MEDS: OXYBUTYNIN CHLORIDE 5 MG TABLET PO SCH ×3 (08:07→17:24)
[2018-07-03] MEDS: METOPROLOL SUCCINATE XL 50 MG TAB.SR.24H PO SCH (08:07)
[2018-07-03] MEDS: AMLODIPINE 5 MG TABLET PO SCH ×2 (08:08→20:49)
--- NOTE | 2018-07-03 08:30 | NUR ---
Received patient, awake, alert x4. Not in any form of distress. On room air sating well. No SOB or chest pains noted. With coughing and difficulty with breakfast on mechanical soft diet, Yesenia MAZARIEGOS informed and requested for video swallow study and GI consult for patient. Patient refused medications to be crushed and ground moist consistency with diet. Discussed risks and benefits but patient requested not to have such.
[2018-07-03] MEDS: ASPIRIN 81 MG TAB.CHEW PO SCH (08:40)
[2018-07-03 09:00] VITALS: BP 148/50
--- NOTE | 2018-07-03 11:17 | NUR ---
Up with physical therapy, said she did not feel well today and could be something wrong with her stomach. Dr Ortiz, GI aware of consult and said to update him with video swallow result scheduled at 14:00. Maintained on fluid restriction of 900cc. Informed patient of restrictions. Patient still participated with therapy.
--- NOTE | 2018-07-03 14:10 | NUR ---
INTERDISCIPLINARY TEAM CONFERENCE
[2018-07-03] MEDS ORDERED: Z GUARD REMEDY PASTE 57 GM TUBE TOP PRN (15:00)
--- NOTE | 2018-07-03 15:02 | NUR ---
WOUND CARE CONSULT: PT PRESENTS WITH RASH TO BREASTFOLDS AND ABDOMINAL/GROIN FOLDS. AREAS ARE VERY MOIST. PT ALSO NOTED TO HAVE INTACT BLISTER TO LOWER BACK. PT ABLE TO STAND WITH WALKER AND ASSISTANCE. RECOMMENDATIONS MADE FOR WOUND CARE AND SKIN PROTECTION. DISCUSSED WITH NURSING STAFF. WILL SEE PRN. CARRION IN AGREEMENT WITH PLAN OF CARE. Addendum: 07/03/18 at 1505 by JUAN CARLOS GRIMES RN Amended: Links added.
[2018-07-03 16:00] VITALS: BP 125/68
[2018-07-03] MEDS: Z GUARD REMEDY PASTE 57 GM TUBE TOP SCH ×2 (17:24→20:49)
[2018-07-03] MEDS: CLOTRIMAZOLE 1% CREAM 30 GM TUBE TOP SCH (17:26)
--- NOTE | 2018-07-03 19:25 | NUR ---
SBAR RECEIVED FROM DAY SHIFT NURSE. PATIENT ALERT AND ORIENTED X 4. NO C/O OF PAIN, SOB OR DISTRESS UPON ASSESSMENT. CALL LIGHT AND FREQUENTLY USED ITEMS WITHIN REACH. WILL CONTINUE TO MONITOR.
[2018-07-03 19:57] VITALS: BP 149/36
[2018-07-03] MEDS: ATORVASTATIN 10 MG TABLET PO SCH (20:48)
[2018-07-04 05:12] VITALS: BP 156/40
[2018-07-04] MEDS: CLONIDINE HCL 0.1 MG TABLET PO SCH ×3 (06:21→21:05)
[2018-07-04] MEDS: PANTOPRAZOLE SODIUM 40 MG TABLET.DR PO SCH (06:21)
[2018-07-04] MEDS: BLOOD SUGAR DIAGNOSTIC 1 EACH STRIP VI SCH ×4 (06:35→20:56)
--- NOTE | 2018-07-04 06:47 | NUR ---
PATIENT SLEPT WELL DURING BRIDGE LEVERMAN. ALL DUE MEDICATIONS GIVEN-TOLERATED WELL. CALL LIGHT UTILIZED FOR BATHROOM NEEDS. PATIENT MAINTAINED ON FLUID RESTRICTION AT 800 ML. SIDE RAILS UP BILATERALLY FOR SAFETY. CALL LIGHT AND FREQUENTLY USED ITEMS WITHIN REACH. WILL ENDORSE TO ONCOMING SHIFT ACCORDINGLY.
[2018-07-04 07:45] LABS: CARBON DIOXIDE 23 mmol/L (21-32); CHLORIDE 96 mmol/L (98-107); CREATININE 1.3 mg/dL (0.6-1.3); GLUCOSE 163 mg/dL (74-106); PHOSPHOROUS 3.4 mg/dL (2.5-4.9); POTASSIUM 5.2 mmol/L (3.5-5.1); UREA NITROGEN, BLOOD 25 mg/dL (7-18); URIC ACID 10.7 mg/dL (2.6-6.0)
[2018-07-04 08:00] VITALS: BP 141/46
[2018-07-04] MEDS: ASPIRIN 81 MG TAB.CHEW PO SCH (09:33)
[2018-07-04] MEDS: [UNRECOGNIZED DRUG - OTHER] PO SCH ×2 (09:34→17:18)
[2018-07-04] MEDS: VALSARTAN 160 MG TABLET PO SCH ×2 (09:35→20:55)
[2018-07-04] MEDS: OXYBUTYNIN CHLORIDE 5 MG TABLET PO SCH ×3 (09:37→17:19)
[2018-07-04] MEDS: MIRALAX 17 GM POWD.PACK PO SCH (09:38)
[2018-07-04] MEDS: SODIUM CHLORIDE 1,000 MG TABLET PO SCH ×3 (09:39→17:20)
[2018-07-04] MEDS: AMLODIPINE 5 MG TABLET PO SCH ×2 (09:41→20:55)
[2018-07-04] MEDS: METOPROLOL SUCCINATE XL 50 MG TAB.SR.24H PO SCH (09:42)
[2018-07-04] MEDS: OXYCODONE/APAP 5-325 MG TABLET PO PRN ×2 (09:44→20:55)
[2018-07-04] MEDS: Z GUARD REMEDY PASTE 57 GM TUBE TOP SCH ×2 (09:53→21:04)
[2018-07-04] MEDS: CLOTRIMAZOLE 1% CREAM 30 GM TUBE TOP SCH ×2 (09:53→17:21)
[2018-07-04] MEDS: INSULIN REGULAR, HUMAN 300 UNIT/3 ML VIAL SQ PRN ×2 (12:15→20:58)
[2018-07-04 13:00] VITALS: BP 147/44
[2018-07-04] MEDS: BENZOCAINE/MENTH/CETYLPYRD LOZENGE MM PRN (13:57)
--- NOTE | 2018-07-04 19:25 | NUR ---
REPORT RECEIVED FROM DAY SHIFT NURSE. PATIENT ALERT AND ORIENTED X 4. C/O OF PAIN IN HER THROAT UPON ASSESSMENT. INFORMED PATIENT IT MAY BE BECAUSE OF THE THROAT STUDY SHE HAD DONE YESTERDAY. REQUESTING THROAT LOZENGE AND PERCOCET TO RELIEVE PAIN IN THROAT AND BACK RESPECTIVELY. NO C/O SOB OR DISTRESS UPON ASSESSMENT. CALL LIGHT AND FREQUENTLY USED ITEMS WITHIN REACH. WILL CONTINUE TO MONITOR.
[2018-07-04 20:07] VITALS: BP 154/39
[2018-07-04] MEDS: ATORVASTATIN 10 MG TABLET PO SCH (20:55)
[2018-07-05 05:12] VITALS: BP 152/48
[2018-07-05] MEDS: PANTOPRAZOLE SODIUM 40 MG TABLET.DR PO SCH (06:07)
[2018-07-05] MEDS: CLONIDINE HCL 0.1 MG TABLET PO SCH ×3 (06:07→21:01)
[2018-07-05] MEDS: BLOOD SUGAR DIAGNOSTIC 1 EACH STRIP VI SCH ×4 (06:30→21:01)
--- NOTE | 2018-07-05 06:43 | NUR ---
PATIENT SLEPT WELL DURING SHIFT. ALL DUE MEDICATIONS GIVEN-TOLERATED WELL. BS NOTED TO BE 143. CALL LIGHT AND FREQUENTLY USED ITEMS WITHIN REACH. WILL ENDORSE TO ONCOMING SHIFT ACCORDINGLY.
[2018-07-05 08:00] VITALS: BP 157/34
[2018-07-05 08:15] LABS: CARBON DIOXIDE 23 mmol/L (21-32); CHLORIDE 97 mmol/L (98-107); CREATININE 1.4 mg/dL (0.6-1.3); GLUCOSE 127 mg/dL (74-106); MAGNESIUM 2.2 mg/dL (1.8-2.4); PHOSPHOROUS 3.4 mg/dL (2.5-4.9); POTASSIUM 5.2 mmol/L (3.5-5.1); UREA NITROGEN, BLOOD 26 mg/dL (7-18)
[2018-07-05] MEDS: hydrOXYzine HCL 25 MG TABLET PO PRN (08:31)
[2018-07-05] MEDS: SODIUM CHLORIDE 1,000 MG TABLET PO SCH ×3 (08:32→16:50)
[2018-07-05] MEDS: OXYBUTYNIN CHLORIDE 5 MG TABLET PO SCH ×3 (08:32→16:51)
[2018-07-05] MEDS: AMLODIPINE 5 MG TABLET PO SCH ×2 (08:34→20:59)
[2018-07-05] MEDS: ASPIRIN 81 MG TAB.CHEW PO SCH (08:34)
[2018-07-05] MEDS: CLOTRIMAZOLE 1% CREAM 30 GM TUBE TOP SCH ×2 (08:36→16:52)
[2018-07-05] MEDS: Z GUARD REMEDY PASTE 57 GM TUBE TOP SCH ×2 (08:36→20:59)
[2018-07-05] MEDS: MIRALAX 17 GM POWD.PACK PO SCH (08:39)
[2018-07-05] MEDS: OXYCODONE/APAP 5-325 MG TABLET PO PRN (08:47)
[2018-07-05] MEDS: VALSARTAN 160 MG TABLET PO SCH ×2 (09:00→20:59)
[2018-07-05] MEDS: METOPROLOL SUCCINATE XL 50 MG TAB.SR.24H PO SCH (09:00)
[2018-07-05] MEDS: [UNRECOGNIZED DRUG - OTHER] PO SCH ×2 (10:30→16:50)
[2018-07-05] MEDS: INSULIN REGULAR, HUMAN 300 UNIT/3 ML VIAL SQ PRN ×2 (11:49→21:13)
[2018-07-05] MEDS ORDERED: SODIUM POLYSTYRENE SULFONATE 15 G/60 ML LIQUID UDC PO ONE (12:00)
[2018-07-05] MEDS ORDERED: SODIUM POLYSTYRENE SULF POWDER 15 GM UDC PO ONE (12:45)
[2018-07-05] MEDS ORDERED: BENZOCAINE/MENTH/CETYLPYRD LOZENGE MM PRN (13:15)
[2018-07-05 16:19] VITALS: BP 134/29
--- NOTE | 2018-07-05 19:30 | NUR ---
PATIENT ALERT AND ORIENTED X 4. NO C/O OF PAIN, SOB OR DISTRESS UPON ASSESSMENT. PATIENT CONTINUING REFUSING SODIUM POLYSTYRENE SOLFONATE POWDER. EXPLAINED THE PURPOSE OF THE MEDICATION. STILL REFUSED. STATING THAT SHE "DOESN'T WANT TO POOP ANYMORE TODAY". PATIENT BELIEVES THAT THE HER BM THIS MORNING WILL HELP DECREASE POTASSIUM. SHE WANTS TO WAIT TO TAKE THE POWDER UNTIL THE LABS TOMORROW COME IN. CALL LIGHT AND FREQUENTLY USED ITEMS WITHIN REACH. WILL CONTINUE TO MONITOR.
[2018-07-05 20:44] VITALS: BP 147/58
[2018-07-05] MEDS: VITAMIN E CREAM 56.7 GM JAR TP SCH (20:58)
[2018-07-05] MEDS: ATORVASTATIN 10 MG TABLET PO SCH (20:59)
[2018-07-06 06:06] VITALS: BP 135/36
[2018-07-06] MEDS: CLONIDINE HCL 0.1 MG TABLET PO SCH ×3 (06:15→22:26)
[2018-07-06] MEDS: PANTOPRAZOLE SODIUM 40 MG TABLET.DR PO SCH (06:15)
[2018-07-06] MEDS: BLOOD SUGAR DIAGNOSTIC 1 EACH STRIP VI SCH ×4 (06:31→20:55)
--- NOTE | 2018-07-06 06:44 | NUR ---
PATIENT SLEPT ON AND OFF DURING WAREHOUSE TEAM MEMBER. ALL DUE MEDICATIONS GIVEN-TOLERATED WELL. BS NOTED TO BE 145. CALL LIGHT AND FREQUENTLY USED ITEMS WITHIN REACH. WILL ENDORSE TO ONCOMING SHIFT ACCORDINGLY.
[2018-07-06 07:30] LABS: ALANINE AMINOTRANSFERASE 18 U/L (14-59); ALKALINE PHOSPHATASE 107 U/L (50-136); ASPARTATE AMINOTRANSFERASE 10 U/L (15-37); BILIRUBIN,TOTAL 0.5 mg/dL (0.2-1.0); CARBON DIOXIDE 22 mmol/L (21-32); CHLORIDE 99 mmol/L (98-107); CREATININE 1.5 mg/dL (0.6-1.3); GLUCOSE 150 mg/dL (74-106); MAGNESIUM 2.2 mg/dL (1.8-2.4); PHOSPHOROUS 3.5 mg/dL (2.5-4.9); POTASSIUM 5.5 mmol/L (3.5-5.1); TOTAL PROTEIN, SERUM 6.2 g/dL (6.4-8.2); UREA NITROGEN, BLOOD 27 mg/dL (7-18)
[2018-07-06 07:34] LABS: BASOPHILS # (AUTO) 0.1 K/uL (0.0-8.0); EOSINOPHILS # (AUTO) 0.6 K/uL (0.0-0.7); EOSINOPHILS % (AUTO) 6.1 % (0.0-7.0); HEMATOCRIT 25.7 % (31.2-41.9); HEMOGLOBIN 8.7 g/dL (10.9-14.3); LYMPHOCYTES # (AUTO) 1.5 K/uL (20.0-40.0); LYMPHOCYTES % (AUTO) 15.5 % (20.5-51.5); MEAN CORPUSCULAR HEMOGLOBIN 28.5 uug (24.7-32.8); MEAN CORPUSCULAR HGB CONC 34 g/dL (32.3-35.6); MEAN CORPUSCULAR VOLUME 84.2 fL (75.5-95.3); MONOCYTES % (AUTO) 10.2 % (0.0-11.0); NEUTROPHILS # (AUTO) 6.7 K/uL (1.8-8.9); NEUTROPHILS % (AUTO) 67.2 % (38.5-71.5); PLATELET COUNT (AUTO) 616 K/uL (179-408); RED BLOOD CELL COUNT(AUTO) 3.05 MIL/uL (3.63-4.92)
[2018-07-06 08:16] VITALS: BP 153/33
[2018-07-06] MEDS: MIRALAX 17 GM POWD.PACK PO SCH (09:00)
[2018-07-06] MEDS ORDERED: SODIUM POLYSTYRENE SULFONATE 15 G/60 ML LIQUID UDC PO ONE (09:15)
--- NOTE | 2018-07-06 09:17 | NUR ---
Dr. Ferguson in the unit making rounds, notified him regardinig potassium level and MD ordered Kayexalate 30gm PO x 1 and BMP in AM. Order carried out.
[2018-07-06] MEDS: ASPIRIN 81 MG TAB.CHEW PO SCH (09:39)
[2018-07-06] MEDS: SODIUM CHLORIDE 1,000 MG TABLET PO SCH ×3 (09:41→16:43)
[2018-07-06] MEDS: ALLOPURINOL 300 MG TABLET PO SCH (09:43)
[2018-07-06] MEDS: METOPROLOL SUCCINATE XL 50 MG TAB.SR.24H PO SCH (09:46)
[2018-07-06] MEDS: VALSARTAN 160 MG TABLET PO SCH (09:46)
[2018-07-06] MEDS: AMLODIPINE 5 MG TABLET PO SCH ×2 (09:47→20:57)
[2018-07-06] MEDS: OXYBUTYNIN CHLORIDE 5 MG TABLET PO SCH ×3 (09:48→16:43)
[2018-07-06] MEDS: [UNRECOGNIZED DRUG - OTHER] PO SCH ×2 (09:49→16:44)
[2018-07-06] MEDS: OXYCODONE/APAP 5-325 MG TABLET PO PRN ×2 (09:54→22:27)
[2018-07-06] MEDS: VITAMIN E CREAM 56.7 GM JAR TP SCH ×2 (09:55→21:14)
[2018-07-06] MEDS: CLOTRIMAZOLE 1% CREAM 30 GM TUBE TOP SCH ×2 (09:55→16:45)
[2018-07-06] MEDS: Z GUARD REMEDY PASTE 57 GM TUBE TOP SCH ×2 (09:55→21:20)
[2018-07-06] MEDS ORDERED: SODIUM POLYSTYRENE SULF POWDER 15 GM UDC PO ONE (10:00)
[2018-07-06] MEDS ORDERED: SODIUM POLYSTYRENE SULF POWDER 15 GM UDC ONE (12:00)
[2018-07-06] MEDS: INSULIN REGULAR, HUMAN 300 UNIT/3 ML VIAL SQ PRN ×3 (12:12→20:56)
[2018-07-06 16:16] VITALS: BP 156/41
--- NOTE | 2018-07-06 18:45 | NUR ---
Patient remains alert, oriented x 4, not in any form of acute distress. She denies any pain or discomfort at this time. Assisted with her needs. Call light placed within reach. Will endorse accordingly with yard spotter nurse for continuity of care.
--- NOTE | 2018-07-06 20:37 | NUR ---
Received pt sleeping comfortably in bed. Aroused easily to name. No acute distress noted. No c/o pain or discomfort. Safety measures maintained. Call light and personal belongings within reach. Will continue to monitor.
[2018-07-06 20:41] VITALS: BP 152/41
[2018-07-06] MEDS: ATORVASTATIN 10 MG TABLET PO SCH (20:56)
[2018-07-06 22:20] VITALS: BP 147/32
[2018-07-07 05:07] VITALS: BP 156/49
[2018-07-07] MEDS: PANTOPRAZOLE SODIUM 40 MG TABLET.DR PO SCH (06:32)
[2018-07-07] MEDS: CLONIDINE HCL 0.1 MG TABLET PO SCH ×3 (06:32→22:32)
[2018-07-07] MEDS: BLOOD SUGAR DIAGNOSTIC 1 EACH STRIP VI SCH ×4 (06:35→20:45)
[2018-07-07 08:00] VITALS: BP 172/42
[2018-07-07] MEDS: MIRALAX 17 GM POWD.PACK PO SCH (08:26)
[2018-07-07] MEDS: ASPIRIN 81 MG TAB.CHEW PO SCH (08:27)
[2018-07-07] MEDS: OXYCODONE/APAP 5-325 MG TABLET PO PRN ×2 (08:28→22:55)
[2018-07-07] MEDS: OXYBUTYNIN CHLORIDE 5 MG TABLET PO SCH ×3 (08:29→17:20)
[2018-07-07] MEDS: [UNRECOGNIZED DRUG - OTHER] PO SCH ×2 (08:29→17:19)
[2018-07-07] MEDS: SODIUM CHLORIDE 1,000 MG TABLET PO SCH ×3 (08:29→17:19)
[2018-07-07] MEDS: METOPROLOL SUCCINATE XL 50 MG TAB.SR.24H PO SCH (08:30)
[2018-07-07] MEDS: ALLOPURINOL 300 MG TABLET PO SCH (08:30)
[2018-07-07] MEDS: AMLODIPINE 5 MG TABLET PO SCH ×2 (08:30→20:45)
[2018-07-07] MEDS: Z GUARD REMEDY PASTE 57 GM TUBE TOP SCH ×2 (08:31→20:54)
[2018-07-07] MEDS: CLOTRIMAZOLE 1% CREAM 30 GM TUBE TOP SCH ×2 (08:31→17:24)
[2018-07-07] MEDS: INSULIN REGULAR, HUMAN 300 UNIT/3 ML VIAL SQ PRN ×4 (08:39→20:54)
[2018-07-07] MEDS: FUROSEMIDE 20 MG TABLET PO SCH (09:06)
[2018-07-07] MEDS: VITAMIN E CREAM 56.7 GM JAR TP SCH ×2 (09:07→20:53)
[2018-07-07 09:45] LABS: BASOPHILS # (AUTO) 0.1 K/uL (0.0-8.0); BASOPHILS % (AUTO) 0.8 % (0.0-2.0); EOSINOPHILS # (AUTO) 0.5 K/uL (0.0-0.7); EOSINOPHILS % (AUTO) 3.5 % (0.0-7.0); HEMOGLOBIN 8.8 g/dL (10.9-14.3); LYMPHOCYTES # (AUTO) 1.1 K/uL (20.0-40.0); LYMPHOCYTES % (AUTO) 7.3 % (20.5-51.5); MEAN CORPUSCULAR HEMOGLOBIN 27.7 uug (24.7-32.8); MEAN CORPUSCULAR HGB CONC 33 g/dL (32.3-35.6); MEAN CORPUSCULAR VOLUME 84.9 fL (75.5-95.3); MONOCYTES % (AUTO) 6.6 % (0.0-11.0); NEUTROPHILS % (AUTO) 81.8 % (38.5-71.5); PLATELET COUNT (AUTO) 659 K/uL (179-408); RED BLOOD CELL COUNT(AUTO) 3.18 MIL/uL (3.63-4.92)
[2018-07-07 09:53] LABS: WHITE BLOOD COUNT (AUTO) 15.8 K/uL (3.8-11.8)
--- NOTE | 2018-07-07 10:43 | NUR ---
patient noted resting in bed, complaints of right shoulder pain related to a recent fall, will given PRN pain medication, no signs of distress noted, call light in reach, bed locked and in lowest position
[2018-07-07 11:13] LABS: ALANINE AMINOTRANSFERASE 18 U/L (14-59); ALKALINE PHOSPHATASE 105 U/L (50-136); ASPARTATE AMINOTRANSFERASE 15 U/L (15-37); BILIRUBIN,TOTAL 0.6 mg/dL (0.2-1.0); CARBON DIOXIDE 21 mmol/L (21-32); CHLORIDE 98 mmol/L (98-107); CREATININE 1.5 mg/dL (0.6-1.3); GLUCOSE 198 mg/dL (74-106); PHOSPHOROUS 3.4 mg/dL (2.5-4.9); POTASSIUM 5.1 mmol/L (3.5-5.1); TOTAL PROTEIN, SERUM 6.4 g/dL (6.4-8.2); UREA NITROGEN, BLOOD 24 mg/dL (7-18)
[2018-07-07 16:00] VITALS: BP 130/40
--- NOTE | 2018-07-07 19:01 | NUR ---
Patient complaints of nose bleed this shift with small clots, MD Reid notified with orders to hold blood thinning medications, Patient states she will not stop blood thinning medication unless approved by personal chief pilot, Clarified with the ASP NET PROGRAMMER Rosalia to MD Lockett, Orders to not discontinue blood thinning medication because of recent stent placement
[2018-07-07 19:12] LABS: *BILIRUBIN,URIN NEGATIVE (NEGATIVE); *BLOOD, URINE NEGATIVE (NEGATIVE); *CLARITY,URINE SLIGHTLY CLOUDY (CLEAR); *COLOR,URINE YELLOW (YELLOW); *KETONES,URINE NEGATIVE (NEGATIVE); LEUKOCYTE ESTERASE ,URINE 2+ (NEGATIVE); NITRITE, URINE NEGATIVE (NEGATIVE); UGLUCOSE NEGATIVE (NEGATIVE)
[2018-07-07 19:24] LABS: BACTERIA,URINE MANY /HPF (NONE SEEN); RBC,URINE 0-3 /HPF (0-3); SQUAMOUS EPITHELIAL CELL,UR FEW /HPF (NONE SEEN); WBC,URINE 50-80 /HPF (0-3)
[2018-07-07 19:25] LABS: *CREATININE,URINE 95.3 mg/dL (30-125); *URINE TOTAL PROTEIN RANDOM 70.8 mg/dL (<150/24HR)
[2018-07-07] MEDS ORDERED: ACETAMINOPHEN 325 MG TABLET PO PRN (19:30)
[2018-07-07] MEDS: ATORVASTATIN 10 MG TABLET PO SCH (20:45)
[2018-07-07 20:58] VITALS: BP 159/38
--- NOTE | 2018-07-07 21:42 | NUR ---
Received pt resting in bed and watching tv. AAO x4. No acute distress noted. No c/o pain or discomfort. Notified Dr. Reid regarding UA result and pt will be started on Keflex. Pt stated that she's had allergic reaction to levaquin before, pharmacy confirmed that keflex and levaquin are not in the same class. Informed pt and documented allergy history. Encouraged pt to report s/s of adverse reaction upon administration of new med. Safety measures maintained. Call light and personal belongings within reach. Will continue to monitor.
[2018-07-07 22:29] VITALS: BP 143/47
[2018-07-07] MEDS: CEphaleXIN 500 MG CAPSULE PO SCH (22:32)
[2018-07-08 04:53] VITALS: BP 169/40
[2018-07-08] MEDS: CLONIDINE HCL 0.1 MG TABLET PO SCH ×2 (06:37→13:28)
[2018-07-08] MEDS: PANTOPRAZOLE SODIUM 40 MG TABLET.DR PO SCH (06:37)
[2018-07-08] MEDS: CEphaleXIN 500 MG CAPSULE PO SCH ×2 (06:37→13:28)
[2018-07-08] MEDS: BLOOD SUGAR DIAGNOSTIC 1 EACH STRIP VI SCH ×2 (06:43→12:00)
[2018-07-08 07:28] LABS: BASOPHILS # (AUTO) 0.1 K/uL (0.0-8.0); BASOPHILS % (AUTO) 0.7 % (0.0-2.0); EOSINOPHILS # (AUTO) 0.8 K/uL (0.0-0.7); EOSINOPHILS % (AUTO) 8.8 % (0.0-7.0); HEMATOCRIT 26.2 % (31.2-41.9); HEMOGLOBIN 8.7 g/dL (10.9-14.3); LYMPHOCYTES % (AUTO) 11.4 % (20.5-51.5); MEAN CORPUSCULAR HEMOGLOBIN 28.1 uug (24.7-32.8); MEAN CORPUSCULAR HGB CONC 33 g/dL (32.3-35.6); MEAN CORPUSCULAR VOLUME 84.8 fL (75.5-95.3); MONOCYTES # (AUTO) 0.7 K/uL (2.0-10.0); MONOCYTES % (AUTO) 7.8 % (0.0-11.0); NEUTROPHILS # (AUTO) 6.1 K/uL (1.8-8.9); NEUTROPHILS % (AUTO) 71.3 % (38.5-71.5); PLATELET COUNT (AUTO) 643 K/uL (179-408); RED BLOOD CELL COUNT(AUTO) 3.09 MIL/uL (3.63-4.92); WHITE BLOOD COUNT (AUTO) 8.6 K/uL (3.8-11.8)
[2018-07-08 07:52] LABS: ALANINE AMINOTRANSFERASE 19 U/L (14-59); ALKALINE PHOSPHATASE 103 U/L (50-136); ASPARTATE AMINOTRANSFERASE 11 U/L (15-37); BILIRUBIN,TOTAL 0.5 mg/dL (0.2-1.0); CARBON DIOXIDE 23 mmol/L (21-32); CHLORIDE 100 mmol/L (98-107); CREATININE 1.4 mg/dL (0.6-1.3); GLUCOSE 137 mg/dL (74-106); PHOSPHOROUS 3.6 mg/dL (2.5-4.9); POTASSIUM 4.6 mmol/L (3.5-5.1); TOTAL PROTEIN, SERUM 6.2 g/dL (6.4-8.2); UREA NITROGEN, BLOOD 22 mg/dL (7-18)
[2018-07-08 08:00] VITALS: BP 176/44
[2018-07-08] MEDS: FUROSEMIDE 20 MG TABLET PO SCH (08:14)
[2018-07-08] MEDS: OXYCODONE/APAP 5-325 MG TABLET PO PRN (08:14)
[2018-07-08] MEDS: ASPIRIN 81 MG TAB.CHEW PO SCH (08:15)
[2018-07-08] MEDS: METOPROLOL SUCCINATE XL 50 MG TAB.SR.24H PO SCH (08:16)
[2018-07-08] MEDS: [UNRECOGNIZED DRUG - OTHER] PO SCH (08:16)
[2018-07-08] MEDS: AMLODIPINE 5 MG TABLET PO SCH (08:16)
[2018-07-08] MEDS: SODIUM CHLORIDE 1,000 MG TABLET PO SCH ×2 (08:17→12:00)
[2018-07-08] MEDS: OXYBUTYNIN CHLORIDE 5 MG TABLET PO SCH ×2 (08:17→12:00)
[2018-07-08] MEDS: ALLOPURINOL 300 MG TABLET PO SCH (08:18)
[2018-07-08] MEDS: MIRALAX 17 GM POWD.PACK PO SCH (08:18)
[2018-07-08] MEDS: Z GUARD REMEDY PASTE 57 GM TUBE TOP SCH (08:19)
[2018-07-08] MEDS: VITAMIN E CREAM 56.7 GM JAR TP SCH (08:19)
[2018-07-08] MEDS: CLOTRIMAZOLE 1% CREAM 30 GM TUBE TOP SCH (08:19)
[2018-07-08] MEDS: INSULIN REGULAR, HUMAN 300 UNIT/3 ML VIAL SQ PRN ×2 (08:33→12:07)
[2018-07-08] MEDS ORDERED: AMLODIPINE 5 MG TABLET PO SCH (10:15)
--- NOTE | 2018-07-08 10:39 | NUR ---
Patient noted resting in bed, complaints of right shoulder and arm pain related to a recent fall, will given PRN pain medication, no signs of distress noted, call light in reach, bed locked and in lowest position
[2018-07-08 13:28] VITALS: BP 167/57
--- NOTE | 2018-07-08 14:53 | NUR ---
167/57, 94% on room air, 55 pulse, 20 respirations, 97.6 oral temperature, Patient being discharged to med-surg unit for Epistaxis while taking on Brilinta per MD Reid orders, discharge instructions given, exit care provided, recent pictures taken and placed in chart of skin issues, MD Quigley notified
[2018-07-08] MEDS ORDERED: ASPI-605 PO ×2 (16:01→16:10)
[2018-07-08] MEDS ORDERED: AMLO5TAB4 PO ×2 (16:01→16:10)
[2018-07-08] MEDS ORDERED: METO100T7 PO ×2 (16:01→16:10)
[2018-07-08] MEDS ORDERED: ATOR20TA PO (16:01)
[2018-07-08] MEDS ORDERED: CLON0.1T14 PO ×2 (16:01→16:10)
[2018-07-08] MEDS ORDERED: ATOR10TA PO ×2 (16:01→16:10)
[2018-07-08] MEDS ORDERED: METO25TA3 PO ×2 (16:01→16:10)
[2018-07-08] MEDS ORDERED: ALLO100T PO ×2 (16:01→16:10)
[2018-07-08] MEDS ORDERED: CLOT30SO2 TP (16:10)
[2018-07-08] MEDS ORDERED: CLOT15CR63 TP (16:35)
[2018-07-08] MEDS ORDERED: INSU100V28 (16:39)
[2018-07-08] MEDS ORDERED: BLOO-360 IN (16:39)
[2018-07-08] MEDS ORDERED: OXYC-128 PO (16:40)
[2018-07-08] MEDS ORDERED: HYDR-4076 PO (16:43)
[2018-07-08] MEDS ORDERED: SODI100037 PO (16:43)
[2018-07-08] MEDS ORDERED: CEPH-570 PO (16:43)
[2018-07-08] MEDS ORDERED: POLY17PO4 PO (16:44)
[2018-07-08] MEDS ORDERED: BENZ1LOZ58 MM (16:45)
[2018-07-08] MEDS ORDERED: [UNRECOGNIZED DRUG - CODE] TP (16:45)
[2018-07-12] MEDS ORDERED: ACET325T53 PO (18:42)
[2018-07-12] MEDS ORDERED: GLIM2TAB PO (18:42)
== END 2018-07-08 15:10 | disposition short-term general hospital (02) | DRG 305 ==
PROVIDERS: ADMIT Physical Medicine & Rehabilitation Pain Medicine; ATTEND Physical Medicine & Rehabilitation Pain Medicine
DX: I16.0 Hypertensive urgency (principal); D68.59 Other primary thrombophilia; E87.1 Hypo-osmolality and hyponatremia; I50.32 Chronic diastolic (congestive) heart failure; I13.0 Hypertensive heart and chronic kidney disease with heart failure and stage 1 through stage 4 chronic kidney disease, or unspecified chronic kidney disease; E11.9 Type 2 diabetes mellitus without complications; R04.0 Epistaxis; I70.8 Atherosclerosis of other arteries; I27.20 Pulmonary hypertension, unspecified; Z95.5 Presence of coronary angioplasty implant and graft; I25.10 Atherosclerotic heart disease of native coronary artery without angina pectoris; R42 Dizziness and giddiness; N18.2 Chronic kidney disease, stage 2 (mild); D50.9 Iron deficiency anemia, unspecified; E11.22 Type 2 diabetes mellitus with diabetic chronic kidney disease; E11.65 Type 2 diabetes mellitus with hyperglycemia; E87.5 Hyperkalemia; E83.42 Hypomagnesemia; I35.8 Other nonrheumatic aortic valve disorders; I67.2 Cerebral atherosclerosis; I70.0 Atherosclerosis of aorta; J47.9 Bronchiectasis, uncomplicated; K44.9 Diaphragmatic hernia without obstruction or gangrene; K57.30 Diverticulosis of large intestine without perforation or abscess without bleeding; M19.90 Unspecified osteoarthritis, unspecified site; M54.10 Radiculopathy, site unspecified; M77.9 Enthesopathy, unspecified; Z91.81 History of falling; M25.511 Pain in right shoulder; R10.2 Pelvic and perineal pain; M25.551 Pain in right hip; Z86.73 Personal history of transient ischemic attack (TIA), and cerebral infarction without residual deficits; Z88.5 Allergy status to narcotic agent; Z88.8 Allergy status to other drugs, medicaments and biological substances
CPT/HCPCS: 36415; 70030-TC; 71045; 72170; 73030; 73502; 74230; 82533; 83735; 84100; 84156; 84300; 84443; 84550; 85025; 87086; 92523; 92526; 92610; 92611; 97110; 97112; 97116; 97165; 97530; 97535; J1815; J3475; J7040; J7050

== ENCOUNTER 2018-07-08 15:32 | Inpatient (IN) | payer MEDICARE, BC ==
[~2018-07-08] VITALS: Ht 162.6 cm; Wt 98.0 kg
--- NOTE | 2018-07-08 15:15 | NUR ---
ADMITTED FROM ARU AN 88 YO FEMALE VIA WHEELCHAIR WITH ADMITTING DX OF EPISTAXIS AWAKE ALERT AND ORIENTED X3, [PLEASANT AND COOPERATIVE, ABLE TO MAKE NEEDS KNOWN. DR GARCIA NOTIFIED OF ADMISSION. WILL FOLLOW-UP PATIENT
[2018-07-08 15:43] VITALS: BP 155/37
[2018-07-08] MEDS ORDERED: METO25TA3 PO ×2 (16:01→16:10)
[2018-07-08] MEDS ORDERED: ALLO100T PO ×2 (16:01→16:10)
[2018-07-08] MEDS ORDERED: AMLO5TAB4 PO ×2 (16:01→16:10)
[2018-07-08] MEDS ORDERED: METO100T7 PO ×2 (16:01→16:10)
[2018-07-08] MEDS ORDERED: ATOR20TA PO (16:01)
[2018-07-08] MEDS ORDERED: ASPI-605 PO ×2 (16:01→16:10)
[2018-07-08] MEDS ORDERED: ATOR10TA PO ×2 (16:01→16:10)
[2018-07-08] MEDS ORDERED: CLON0.1T14 PO ×2 (16:01→16:10)
[2018-07-08] MEDS ORDERED: CLOT30SO2 TP (16:10)
[2018-07-08] MEDS ORDERED: CLOT15CR63 TP (16:35)
[2018-07-08] MEDS ORDERED: INSU100V28 (16:39)
[2018-07-08] MEDS ORDERED: BLOO-360 IN (16:39)
[2018-07-08] MEDS ORDERED: OXYC-128 PO (16:40)
[2018-07-08] MEDS ORDERED: CEPH-570 PO (16:43)
[2018-07-08] MEDS ORDERED: SODI100037 PO (16:43)
[2018-07-08] MEDS ORDERED: HYDR-4076 PO (16:43)
[2018-07-08] MEDS ORDERED: POLY17PO4 PO (16:44)
[2018-07-08] MEDS ORDERED: BENZ1LOZ58 MM (16:45)
[2018-07-08] MEDS ORDERED: [UNRECOGNIZED DRUG - CODE] TP (16:45)
--- NOTE | 2018-07-08 17:30 | NUR ---
DR GARCIA IN MADE AWARE OF BLOOD SUGAR SAID WILL RECONCILE MEDS
[2018-07-08] MEDS ORDERED: hydrALAZINE HCL 25 MG TABLET PO PRN (18:15)
[2018-07-08] MEDS ORDERED: hydrOXYzine HCL 25 MG TABLET PO PRN (18:15)
[2018-07-08] MEDS ORDERED: ACETAMINOPHEN 325 MG TABLET PO PRN (18:45)
[2018-07-08] MEDS ORDERED: ONDANSETRON 4 MG/2 ML VIAL IV PRN (18:45)
[2018-07-08 19:22] VITALS: BP 178/39
--- NOTE | 2018-07-08 20:00 | NUR ---
Received patient laying comfortably in bed. No acute distress noted. Patient A/O x 4. Patient in Room air. TELE SR. Noted Midline on the right upper arm, patent and intact. Re enforced with tape. Noted redness on bilateral arms and chest, patient stated to be allergic to "vitamin E lotion" that was given to her in ARU about 3 days ago. Diminished lung sounds. C/O itchiness. Noted bilateral upper extremities non pitting edema, bilateral lower leg edema 3+ pitting edema. Safety initiated. Call light within reach. Will continue to monitor.
--- NOTE | 2018-07-08 20:30 | NUR ---
MD made aware of the redness in the bilateral upper extremities and chest. New order of Benadryl. Will continue to monitor.
[2018-07-08] MEDS: CEFTRIAXONE 1 G in IV DEXTROSE 5% 50 ML IV SCH (21:12)
[2018-07-08] MEDS: AMLODIPINE 5 MG TABLET PO SCH (21:12)
[2018-07-08] MEDS: ATORVASTATIN 10 MG TABLET PO SCH (21:12)
[2018-07-08] MEDS: [UNRECOGNIZED DRUG - OTHER] PO SCH (21:13)
[2018-07-08] MEDS ORDERED: diphenhydrAMINE 50 MG/1 ML VIAL IV PRN (21:15)
[2018-07-08] MEDS: OXYCODONE/APAP 5-325 MG TABLET PO PRN (21:39)
[2018-07-08 23:14] VITALS: BP 158/42
[2018-07-09] MEDS: hydrALAZINE HCL 50 MG TABLET PO SCH ×2 (00:15→08:59)
[2018-07-09 03:30] VITALS: BP 177/38
--- NOTE | 2018-07-09 05:00 | NUR ---
PATIENT SLEPT THROUGH NIGHT AND LAYING COMFORTABLY IN BED. PATIENT IS AO X 4 AND HAS NOT VERBALIZED ANY COMPLAINTS OF PAIN OR DISCOMFORT AND NO ACUTE DISTRESS NOTED. LEFT UPPER ARM MIDLINE IS PATENT AND INTACT. VS STABLE THROUGHOUT NIGHT, TELE IS 61 SINUS RHYTHM. PATIENT REMAINS ON 900cc DAILY FLUID RESTRICTION (600cc [id number]/300cc [id number]). PATIENT IS SELF-TURNING. AMBULATION ASSISTIVE DEVICE WITHIN REACH AT ALL TIMES. CALL LIGHT WITHIN REACH AT ALL TIMES.
[2018-07-09] MEDS: PANTOPRAZOLE SODIUM 40 MG TABLET.DR PO SCH (06:14)
[2018-07-09 06:20] LABS: BASOPHILS % (AUTO) 0.4 % (0.0-2.0); EOSINOPHILS % (AUTO) 9.5 % (0.0-7.0); HEMATOCRIT 27.3 % (31.2-41.9); HEMOGLOBIN 9.1 g/dL (10.9-14.3); LYMPHOCYTES # (AUTO) 0.5 K/uL (20.0-40.0); LYMPHOCYTES % (AUTO) 4.6 % (20.5-51.5); MEAN CORPUSCULAR HEMOGLOBIN 27.9 uug (24.7-32.8); MEAN CORPUSCULAR HGB CONC 33 g/dL (32.3-35.6); MEAN CORPUSCULAR VOLUME 84.3 fL (75.5-95.3); MONOCYTES # (AUTO) 0.7 K/uL (2.0-10.0); MONOCYTES % (AUTO) 7.1 % (0.0-11.0); NEUTROPHILS # (AUTO) 8.3 K/uL (1.8-8.9); NEUTROPHILS % (AUTO) 78.4 % (38.5-71.5); PLATELET COUNT (AUTO) 694 K/uL (179-408); RED BLOOD CELL COUNT(AUTO) 3.24 MIL/uL (3.63-4.92); WHITE BLOOD COUNT (AUTO) 10.5 K/uL (3.8-11.8)
--- NOTE | 2018-07-09 06:36 | NUR ---
Morning BP was elevated 177/48 HR 61. PRN Apresoline given. Will continue to monitor.
[2018-07-09 06:50] LABS: ALANINE AMINOTRANSFERASE 19 U/L (14-59); ALKALINE PHOSPHATASE 103 U/L (50-136); ASPARTATE AMINOTRANSFERASE 12 U/L (15-37); BILIRUBIN,TOTAL 0.5 mg/dL (0.2-1.0); CARBON DIOXIDE 24 mmol/L (21-32); CHLORIDE 101 mmol/L (98-107); CREATININE 1.4 mg/dL (0.6-1.3); GLUCOSE 172 mg/dL (74-106); MAGNESIUM 1.8 mg/dL (1.8-2.4); PHOSPHOROUS 3.5 mg/dL (2.5-4.9); POTASSIUM 4.4 mmol/L (3.5-5.1); TOTAL PROTEIN, SERUM 6.2 g/dL (6.4-8.2); UREA NITROGEN, BLOOD 24 mg/dL (7-18)
--- NOTE | 2018-07-09 07:15 | NUR ---
report taken from police shift commander, assessment has been done, patient is alert oriented x4, no s/s distress,resting comfortably, safe and comfort measures are implemented
[2018-07-09] MEDS: OXYCODONE/APAP 5-325 MG TABLET PO PRN ×2 (08:57→20:41)
[2018-07-09] MEDS: AMLODIPINE 5 MG TABLET PO SCH ×2 (08:57→20:36)
[2018-07-09] MEDS: GLIMEPIRIDE 2 MG TABLET PO SCH ×2 (08:58→17:23)
[2018-07-09] MEDS: LINAGLIPTIN 5 MG TABLET PO SCH (08:58)
[2018-07-09] MEDS: OXYBUTYNIN CHLORIDE 5 MG TABLET PO SCH ×3 (08:58→17:23)
[2018-07-09] MEDS ORDERED: [UNRECOGNIZED DRUG - OTHER] PO SCH (09:00)
[2018-07-09] MEDS ORDERED: SODIUM CHLORIDE 1,000 MG TABLET PO SCH (09:00)
[2018-07-09] MEDS ORDERED: Medication Not On Formulary EA (Solifenacin Succinate (Vesicare) 1 TAB) PO SCH (09:00)
[2018-07-09] MEDS: METOPROLOL SUCCINATE XL 50 MG TAB.SR.24H PO SCH (09:04)
[2018-07-09] MEDS: MIRALAX 17 GM POWD.PACK PO SCH (09:04)
[2018-07-09] MEDS: [UNRECOGNIZED DRUG - OTHER] PO SCH ×2 (09:04→17:23)
[2018-07-09 11:10] VITALS: BP 137/38
[2018-07-09] MEDS: VALSARTAN 160 MG TABLET PO SCH ×2 (12:13→20:35)
[2018-07-09] MEDS: FUROSEMIDE 40 MG/4 ML VIAL IV SCH ×2 (12:14→20:36)
[2018-07-09] MEDS: ASPIRIN 81 MG TAB.CHEW PO SCH (12:14)
[2018-07-09 15:12] VITALS: BP 148/32
--- NOTE | 2018-07-09 18:28 | NUR ---
patient is stable during day shift, no epistaxis , PT eval has done, ambulated, BM movement around 5:30 PM, alert oriented x 4, still is in fluid restriction, Lasix was given per MD order to relieve edema, patient is on desk monitor, sinus rhythm
--- NOTE | 2018-07-09 19:45 | NUR ---
PATIENT AWAKE ALERT, NO SOB NO CHEST PAIN NOTED, TELE MONITOR SINUS RHYTHM AT THIS TIME. PATIENT ON FLUID RESTRICTION OF 900CC DAILY, KEPT JAYLEN LEGS WITH PILLOW DUE TO 2+ EDEMA. CONT TO MONITOR.
[2018-07-09 19:48] VITALS: BP 155/40
[2018-07-09] MEDS: CEFTRIAXONE 1 G in IV DEXTROSE 5% 50 ML IV SCH (20:18)
[2018-07-09] MEDS: ATORVASTATIN 10 MG TABLET PO SCH (20:36)
[2018-07-10] VITALS: BP 137/38
[2018-07-10 04:00] VITALS: BP 152/38
[2018-07-10] MEDS: PANTOPRAZOLE SODIUM 40 MG TABLET.DR PO SCH (06:03)
--- NOTE | 2018-07-10 06:40 | NUR ---
PATIENT ASLEEP BUT EASILY AROUSABLE, NO SOB NO CHEST PAIN, TELE MONITOR SINUS RHYTHM. PATIENT SLEPT MOST OF THE NIGHT, KEPT HOB ELEVATE, BILATERAL LEG ELEVATED WITH PILLOW. CALL LIGHT WITHIN REACH.
[2018-07-10 07:02] LABS: ALANINE AMINOTRANSFERASE 16 U/L (14-59); ALKALINE PHOSPHATASE 100 U/L (50-136); ASPARTATE AMINOTRANSFERASE 14 U/L (15-37); BILIRUBIN,TOTAL 0.5 mg/dL (0.2-1.0); CARBON DIOXIDE 24 mmol/L (21-32); CHLORIDE 102 mmol/L (98-107); CREATININE 1.5 mg/dL (0.6-1.3); GLUCOSE 106 mg/dL (74-106); MAGNESIUM 1.7 mg/dL (1.8-2.4); PHOSPHOROUS 3.3 mg/dL (2.5-4.9); TOTAL PROTEIN, SERUM 6.1 g/dL (6.4-8.2); UREA NITROGEN, BLOOD 27 mg/dL (7-18)
--- NOTE | 2018-07-10 07:05 | NUR ---
received report from night supervisor nurse, patient in bed awake, no distress noted at this time, legs elevated, bed inlow position, side rails up x2, bed alarm on.
[2018-07-10 07:11] LABS: BASOPHILS # (AUTO) 0.1 K/uL (0.0-8.0); BASOPHILS % (AUTO) 0.5 % (0.0-2.0); EOSINOPHILS # (AUTO) 0.8 K/uL (0.0-0.7); EOSINOPHILS % (AUTO) 7.9 % (0.0-7.0); HEMATOCRIT 25.4 % (31.2-41.9); HEMOGLOBIN 8.4 g/dL (10.9-14.3); LYMPHOCYTES # (AUTO) 0.8 K/uL (20.0-40.0); LYMPHOCYTES % (AUTO) 8.2 % (20.5-51.5); MEAN CORPUSCULAR HGB CONC 33 g/dL (32.3-35.6); MEAN CORPUSCULAR VOLUME 84.2 fL (75.5-95.3); MONOCYTES # (AUTO) 0.9 K/uL (2.0-10.0); MONOCYTES % (AUTO) 9.1 % (0.0-11.0); NEUTROPHILS # (AUTO) 7.4 K/uL (1.8-8.9); NEUTROPHILS % (AUTO) 74.3 % (38.5-71.5); PLATELET COUNT (AUTO) 656 K/uL (179-408); RED BLOOD CELL COUNT(AUTO) 3.01 MIL/uL (3.63-4.92); WHITE BLOOD COUNT (AUTO) 9.9 K/uL (3.8-11.8)
[2018-07-10] MEDS: MIRALAX 17 GM POWD.PACK PO SCH (09:00)
[2018-07-10] MEDS: FUROSEMIDE 40 MG/4 ML VIAL IV SCH ×3 (09:00→20:33)
[2018-07-10] MEDS: ASPIRIN 81 MG TAB.CHEW PO SCH (10:14)
[2018-07-10] MEDS: VALSARTAN 160 MG TABLET PO SCH ×2 (10:14→20:33)
[2018-07-10] MEDS: AMLODIPINE 5 MG TABLET PO SCH ×2 (10:14→20:32)
[2018-07-10] MEDS: LINAGLIPTIN 5 MG TABLET PO SCH (10:14)
[2018-07-10] MEDS: GLIMEPIRIDE 2 MG TABLET PO SCH ×2 (10:14→17:19)
[2018-07-10] MEDS: METOPROLOL SUCCINATE XL 50 MG TAB.SR.24H PO SCH (10:15)
[2018-07-10] MEDS: OXYBUTYNIN CHLORIDE 5 MG TABLET PO SCH ×3 (10:16→17:19)
[2018-07-10] MEDS: [UNRECOGNIZED DRUG - OTHER] PO SCH ×2 (10:49→17:19)
[2018-07-10] MEDS: OXYCODONE/APAP 5-325 MG TABLET PO PRN ×2 (10:49→21:45)
[2018-07-10 11:15] VITALS: BP 154/33
[2018-07-10] MEDS ORDERED: MAGNESIUM SULFATE/D5W 100 ML IV SCH (13:00)
[2018-07-10] MEDS ORDERED: FUROSEMIDE 40 MG/4 ML VIAL IV ONE (14:00)
[2018-07-10 15:30] VITALS: BP 137/29
--- NOTE | 2018-07-10 19:08 | NUR ---
patient has been cooperative with care, all needs met. Patients legs elevated on chair, and continues to be compliant with fluid restrictions. patient ambulated with physical therapy, and mildly tolerated.Call light in reach, no distress noted at this time.
[2018-07-10 20:23] VITALS: BP 136/36
[2018-07-10] MEDS: CEFTRIAXONE 1 G in IV DEXTROSE 5% 50 ML IV SCH (20:32)
[2018-07-10] MEDS: ATORVASTATIN 10 MG TABLET PO SCH (20:33)
--- NOTE | 2018-07-10 21:30 | NUR ---
RECEIVED REPORT FROM CRISTINA RN. INTRODUCED SELF TO PATIENT. PATIENT IS ALERT AND AWAKE IN BED. COMPLAINS OF 8/10 PAIN, REQUESTED PRESCRIBED PERCOCET, WHICH WAS GIVEN ORDERED AND TOLERATED WELL. BEDSIDE COMMODE PROVIDED FOR SAFETY AND CONVENIENCE OF PATIENT. CALL LIGHT WITHIN REACH AT ALL TIMES. WILL CONTINUE TO MONITOR.
--- NOTE | 2018-07-11 02:06 | NUR ---
NOTIFIED BY BY TELE NURSE THAT PATIENT HR WAS DROPPING BELOW BASELINE. I CHECKED ON PATIENT WHO IS EASILY AROUSABLE, ALERT AND ORIENTED X 3, AND STATES THAT SHE FEELS OKAY. I TOOK VS AND BP WAS 161/30, RR 18, HR 60, O2 96% @ 2L/MIN VIA NC. WILL CONTINUE TO MONITOR.
[2018-07-11 03:44] VITALS: BP 141/35
--- NOTE | 2018-07-11 03:50 | NUR ---
DUE TO PATIENT'S HISTORY OF CHF AND CURRENT BL LOWER LEG EDEMA, NURSE ADDED DAILY WEIGHT TO INTERVENTIONS.
--- NOTE | 2018-07-11 05:01 | NUR ---
PATIENT SLEPT THROUGH NIGHT UNLESS AROUSED BY NURSE TO CHECK FOR ORIENTATION. NO COMPLAINTS OF PAIN OR DISCOMFORT VERBALIZED AND ZERO OBSERVATION OF ACUTE DISTRESS DURING THIS SHIFT. VS WNL, TELE SINUS YANDEL @ 61. LEFT MIDLINE PATENT AND INTACT. 300 CC FLUID RESTRICTION STRICTLY OBSERVED. ALL ORDERED MEDICATION PROVIDED PRESCRIBED AND TOLERATED WELL. REPORT TO BE GIVEN TO AM SHIFT.
[2018-07-11 06:33] LABS: BASOPHILS # (AUTO) 0.1 K/uL (0.0-8.0); BASOPHILS % (AUTO) 0.6 % (0.0-2.0); EOSINOPHILS # (AUTO) 1.3 K/uL (0.0-0.7); EOSINOPHILS % (AUTO) 13.4 % (0.0-7.0); HEMATOCRIT 24.8 % (31.2-41.9); HEMOGLOBIN 8.4 g/dL (10.9-14.3); LYMPHOCYTES # (AUTO) 0.8 K/uL (20.0-40.0); LYMPHOCYTES % (AUTO) 8.5 % (20.5-51.5); MEAN CORPUSCULAR HEMOGLOBIN 28.7 uug (24.7-32.8); MEAN CORPUSCULAR HGB CONC 34 g/dL (32.3-35.6); MONOCYTES % (AUTO) 9.9 % (0.0-11.0); NEUTROPHILS # (AUTO) 6.5 K/uL (1.8-8.9); NEUTROPHILS % (AUTO) 67.6 % (38.5-71.5); PLATELET COUNT (AUTO) 658 K/uL (179-408); RED BLOOD CELL COUNT(AUTO) 2.92 MIL/uL (3.63-4.92); WHITE BLOOD COUNT (AUTO) 9.6 K/uL (3.8-11.8)
[2018-07-11] MEDS: PANTOPRAZOLE SODIUM 40 MG TABLET.DR PO SCH (06:33)
[2018-07-11 06:43] LABS: CARBON DIOXIDE 24 mmol/L (21-32); CHLORIDE 102 mmol/L (98-107); CREATININE 1.7 mg/dL (0.6-1.3); GLUCOSE 76 mg/dL (74-106); MAGNESIUM 1.7 mg/dL (1.8-2.4); PHOSPHOROUS 3.8 mg/dL (2.5-4.9); UREA NITROGEN, BLOOD 27 mg/dL (7-18)
--- NOTE | 2018-07-11 07:10 | NUR ---
Received report from caustic cresylate shift superintendent nurse, patient in bed asleep, no distress noted at this time, bed in low position, side rails up x2.
[2018-07-11] MEDS: GLIMEPIRIDE 2 MG TABLET PO SCH ×2 (08:34→16:57)
[2018-07-11] MEDS: OXYCODONE/APAP 5-325 MG TABLET PO PRN ×2 (08:34→20:34)
[2018-07-11] MEDS: LINAGLIPTIN 5 MG TABLET PO SCH (08:35)
[2018-07-11] MEDS: AMLODIPINE 5 MG TABLET PO SCH ×2 (08:35→20:34)
[2018-07-11] MEDS: OXYBUTYNIN CHLORIDE 5 MG TABLET PO SCH ×3 (08:35→16:57)
[2018-07-11] MEDS: ASPIRIN 81 MG TAB.CHEW PO SCH (08:36)
[2018-07-11] MEDS: VALSARTAN 160 MG TABLET PO SCH (08:36)
[2018-07-11] MEDS: [UNRECOGNIZED DRUG - OTHER] PO SCH ×2 (08:37→16:57)
[2018-07-11] MEDS: METOPROLOL SUCCINATE XL 50 MG TAB.SR.24H PO SCH (08:37)
[2018-07-11] MEDS: FUROSEMIDE 40 MG/4 ML VIAL IV SCH (08:37)
[2018-07-11] MEDS: MIRALAX 17 GM POWD.PACK PO SCH (08:43)
[2018-07-11 11:00] VITALS: BP 156/98
[2018-07-11 16:00] VITALS: BP 157/40
[2018-07-11] MEDS: MAGNESIUM SULFATE/D5W 100 ML IV SCH ×2 (16:52→16:54)
[2018-07-11] MEDS ORDERED: MAGNESIUM SULFATE/D5W 100 ML IV ONE (17:00)
--- NOTE | 2018-07-11 18:41 | NUR ---
Patient has been cooperative with care, all needs met. Patient has been extremely anxious today and agitated due to the news that she will need to be discharged tomorrow to a SNF. She is picking at nose and mouth and making it bleed. Patient reports warm skin after waking up and claims to be itching but denies needing benadryl. Currently patient up at bedside chair. No distress noted at this time, call light in reach.
--- NOTE | 2018-07-11 19:35 | NUR ---
AT SHIFT CHANGE REPORT PATIENT STATED THAT SHE HAD SOME CHEST PAIN AFTER DINNER AND FORGOT TO TELL ME BUT THAT IT WAS RESOLVED AND JUST WANTED IT NOTED. DR GARCIA NOTIFIED.
--- NOTE | 2018-07-11 19:40 | NUR ---
PATIENT AWAKE ON BED WATCHING TV. EDEMA NOTED BILATERAL UPPER AND LOWER EXTREMITIES. KEPT BILATERAL LOWER EXTREMITIES ELEVATED . SINUS RHYTHM ON THE MONITOR. NO C/O OF PAIN ANT THIS TIME. NO NOSE BLEEDING NOTED. . DISCOLORATION NOTED ON BILATERAL LOWER AND UPPER EXTREMITIES. WILL CONTINUE TO MONITOR.
[2018-07-11] MEDS: CEFTRIAXONE 1 G in IV DEXTROSE 5% 50 ML IV SCH (20:33)
[2018-07-11] MEDS: ATORVASTATIN 10 MG TABLET PO SCH (20:34)
[2018-07-11 20:36] VITALS: BP 157/37
[2018-07-12 00:38] VITALS: BP 124/40
[2018-07-12 05:10] VITALS: BP 153/43
[2018-07-12] MEDS: PANTOPRAZOLE SODIUM 40 MG TABLET.DR PO SCH (06:08)
[2018-07-12 06:46] LABS: BASOPHILS % (AUTO) 0.3 % (0.0-2.0); EOSINOPHILS # (AUTO) 1.2 K/uL (0.0-0.7); EOSINOPHILS % (AUTO) 11.7 % (0.0-7.0); HEMATOCRIT 26.5 % (31.2-41.9); HEMOGLOBIN 8.9 g/dL (10.9-14.3); LYMPHOCYTES # (AUTO) 0.8 K/uL (20.0-40.0); LYMPHOCYTES % (AUTO) 7.9 % (20.5-51.5); MEAN CORPUSCULAR HEMOGLOBIN 28.7 uug (24.7-32.8); MEAN CORPUSCULAR HGB CONC 34 g/dL (32.3-35.6); MEAN CORPUSCULAR VOLUME 85.4 fL (75.5-95.3); MONOCYTES # (AUTO) 1.1 K/uL (2.0-10.0); MONOCYTES % (AUTO) 10.8 % (0.0-11.0); NEUTROPHILS # (AUTO) 7.3 K/uL (1.8-8.9); NEUTROPHILS % (AUTO) 69.3 % (38.5-71.5); PLATELET COUNT (AUTO) 701 K/uL (179-408); RED BLOOD CELL COUNT(AUTO) 3.11 MIL/uL (3.63-4.92); WHITE BLOOD COUNT (AUTO) 10.6 K/uL (3.8-11.8)
--- NOTE | 2018-07-12 06:55 | NUR ---
PATIENT INTERMITTENTLY SLEEPING. CONTINUING ON FLUID RESTRICTION ORDERED. KEPT THE BILATERAL LOWER EXTREMITIES ELEVATED . SAFTEY MEASURES OBSERVED.
[2018-07-12 06:57] LABS: CARBON DIOXIDE 24 mmol/L (21-32); CHLORIDE 102 mmol/L (98-107); CREATININE 1.6 mg/dL (0.6-1.3); GLUCOSE 85 mg/dL (74-106); MAGNESIUM 2.2 mg/dL (1.8-2.4); PHOSPHOROUS 3.8 mg/dL (2.5-4.9); POTASSIUM 4.3 mmol/L (3.5-5.1); UREA NITROGEN, BLOOD 29 mg/dL (7-18)
[2018-07-12] MEDS: hydrALAZINE HCL 25 MG TABLET PO SCH ×2 (08:24→13:19)
[2018-07-12] MEDS: LINAGLIPTIN 5 MG TABLET PO SCH (08:27)
[2018-07-12] MEDS: METOPROLOL SUCCINATE XL 50 MG TAB.SR.24H PO SCH (08:27)
[2018-07-12] MEDS: OXYBUTYNIN CHLORIDE 5 MG TABLET PO SCH ×3 (08:28→16:04)
[2018-07-12] MEDS: AMLODIPINE 5 MG TABLET PO SCH (08:28)
[2018-07-12] MEDS: ASPIRIN 81 MG TAB.CHEW PO SCH (08:28)
[2018-07-12] MEDS: MIRALAX 17 GM POWD.PACK PO SCH (08:28)
[2018-07-12] MEDS: GLIMEPIRIDE 2 MG TABLET PO SCH ×2 (08:28→16:04)
[2018-07-12] MEDS: [UNRECOGNIZED DRUG - OTHER] PO SCH ×2 (08:44→16:04)
[2018-07-12] MEDS ORDERED: FUROSEMIDE 20 MG/2 ML VIAL IV SCH ×2 (09:00→17:00)
[2018-07-12 11:18] VITALS: BP 159/36
[2018-07-12] MEDS: OXYCODONE/APAP 5-325 MG TABLET PO PRN (12:40)
[2018-07-12 15:13] VITALS: BP 149/32
--- NOTE | 2018-07-12 16:57 | NUR ---
DISCHARGE NOTED, PROTOCOL FOLLOWED. REPORT GIVEN TO JANE AT [facility]. AMBULANCE ARRANGED #[id number] IN HOME SALES REPRESENTATIVE TIME 1930.
[2018-07-12] MEDS ORDERED: GLIM2TAB PO (18:42)
[2018-07-12] MEDS ORDERED: ACET325T53 PO (18:42)
--- NOTE | 2018-07-12 20:20 | NUR ---
DISCHARGE NOTE PATIENT LEFT IN STABLE CONDITION TRANSPORTED VIA GURNEY WITH EMT. ALL BELONGINGS BROUGHT WITH THE PATIENT INCLUDING WHEELCHAIR. DISCHARGE PAPERS GIVEN.
== END 2018-07-12 21:44 | DRG 291 ==
LOC: TELE3 15:32
PROVIDERS: ADMIT Internal Medicine; ATTEND Internal Medicine
DX: I13.0 Hypertensive heart and chronic kidney disease with heart failure and stage 1 through stage 4 chronic kidney disease, or unspecified chronic kidney disease (principal); I50.33 Acute on chronic diastolic (congestive) heart failure; E43 Unspecified severe protein-calorie malnutrition; N17.0 Acute kidney failure with tubular necrosis; D68.32 Hemorrhagic disorder due to extrinsic circulating anticoagulants; N39.0 Urinary tract infection, site not specified; D68.59 Other primary thrombophilia; R04.0 Epistaxis; T45.525A Adverse effect of antithrombotic drugs, initial encounter; Y92.230 Patient room in hospital as the place of occurrence of the external cause; D50.9 Iron deficiency anemia, unspecified; Z68.37 Body mass index [BMI] 37.0-37.9, adult; I25.10 Atherosclerotic heart disease of native coronary artery without angina pectoris; Z95.5 Presence of coronary angioplasty implant and graft; N32.81 Overactive bladder; E11.65 Type 2 diabetes mellitus with hyperglycemia; E11.22 Type 2 diabetes mellitus with diabetic chronic kidney disease; N18.9 Chronic kidney disease, unspecified; Z79.4 Long term (current) use of insulin; K57.30 Diverticulosis of large intestine without perforation or abscess without bleeding; N18.2 Chronic kidney disease, stage 2 (mild); Z86.73 Personal history of transient ischemic attack (TIA), and cerebral infarction without residual deficits; E66.01 Morbid (severe) obesity due to excess calories; Z68.36 Body mass index [BMI] 36.0-36.9, adult; Z71.3 Dietary counseling and surveillance; K44.9 Diaphragmatic hernia without obstruction or gangrene; Z91.81 History of falling; M10.9 Gout, unspecified; M19.90 Unspecified osteoarthritis, unspecified site; M54.10 Radiculopathy, site unspecified; J47.9 Bronchiectasis, uncomplicated; I70.0 Atherosclerosis of aorta; I27.20 Pulmonary hypertension, unspecified; E78.5 Hyperlipidemia, unspecified; I35.8 Other nonrheumatic aortic valve disorders
CPT/HCPCS: 36415; 70030-TC; 71045; 83735; 84100; 85025; 93005; 97110; 97116; 97530; 97535; G0378; J0696; J1200; J1940; J3475; J3490; J7040; J7060

== ENCOUNTER 2018-11-26 09:16 | Inpatient (IN) | payer MEDICARE, BC ==
[~2018-11-26] VITALS: Ht 160 cm; Wt 81.6 kg
[~2018-11-26 09:16] MED LIST changes: +ACET325T53 PO; +BLOO-360 IN; -Benzocaine/Menth/Cetylpyrd Cl MM; -Blood Sugar Diagnostic VI; -CLON0.1T14 PO; +GLIM2TAB PO; -GLIM4TAB3 PO; -HYDR-3326 PO; +HYDR-894 PO; +INSU100V28; -INSU100V28 SQ; -METO100T7 PO; -NYST15PO4 TP; -ONDA4VIA23 IV; +OXYC-128 PO; -Oxybutynin Chloride PO; -Oxycodone/Apap 5-325 Mg PO; -PANT40TA4 PO; +POLY17PO4 PO; +SODI100010 PO; -TEMA15CA5 PO; -VALS160T2 PO
--- NOTE | 2018-11-26 09:19 | NUR ---
Dr. Collins at the bedside for MSE.
--- NOTE | 2018-11-26 10:21 | NUR ---
Pt returned from CT. Nad noted upon returning to the ER.
[2018-11-26] MEDS ORDERED: INSU100V39 SQ (10:32)
[2018-11-26] MEDS ORDERED: METO-295 PO (10:32)
[2018-11-26] MEDS ORDERED: ONDA4TAB5 PO (10:32)
[2018-11-26] MEDS ORDERED: EPOE1VIA6 IJ (10:32)
[2018-11-26] MEDS ORDERED: MAGN30TA2 PO (10:32)
[2018-11-26] MEDS ORDERED: ZINC220C8 PO (10:32)
[2018-11-26] MEDS ORDERED: SODI650T PO (10:32)
[2018-11-26] MEDS ORDERED: CARB15DR OP (10:32)
[2018-11-26] MEDS ORDERED: MULT1TAB73 PO (10:32)
[2018-11-26] MEDS ORDERED: BENZ-13 PO (10:32)
--- NOTE | 2018-11-26 10:40 | NUR ---
Medication list updated based on pt's recent discharge(yesterday) from Rehab.
--- NOTE | 2018-11-26 10:57 | NUR ---
Dr. Collins spoke with Dr. Kashif Wright on the telephone for pt's admission to med/surg.
[2018-11-26] MEDS ORDERED: IV NORMAL SALINE 500 ML BAG IV ONE (11:00)
--- NOTE | 2018-11-26 11:20 | NUR ---
Pt transferred to room 309 med/surg for pt admission. Pt stable and nad noted upon transfer.
--- NOTE | 2018-11-26 11:22 | NUR ---
Pt to have midline inserted on the med/surg floor. Endorsed to RN to administer 500NS bolus as ordered by Dr. Collins.
--- NOTE | 2018-11-26 12:00 | NUR ---
Patient admited to med-surg from emergency room due to s/p mechanical fall. Patient in stable condition. Patient will continue to be monitored
[2018-11-26] MEDS ORDERED: METOCLOPRAMIDE HCL 10 MG TABLET PO PRN (14:00)
[2018-11-26] MEDS ORDERED: BENZONATATE 100 MG CAPSULE PO PRN (14:00)
[2018-11-26] MEDS ORDERED: ACETAMINOPHEN 325 MG TABLET PO PRN (14:00)
[2018-11-26] MEDS ORDERED: Z GUARD REMEDY PASTE 57 GM TUBE TOP PRN (14:15)
[2018-11-26] MEDS ORDERED: DEXTROSE 50% 50 ML DISP.SYRIN IV PRN (14:15)
[2018-11-26] MEDS ORDERED: MAGNESIUM HYDROXIDE 30 ML LIQUID UDC PO PRN (14:15)
[2018-11-26] MEDS ORDERED: ZOLPIDEM 5 MG TABLET PO PRN (14:15)
[2018-11-26 15:07] VITALS: BP 138/76
[2018-11-26] MEDS: BLOOD SUGAR DIAGNOSTIC 1 EACH STRIP VI SCH ×2 (17:02→20:19)
[2018-11-26 17:14] LABS: BASOPHILS # (AUTO) 0.1 K/uL (0.0-8.0); EOSINOPHILS # (AUTO) 0.1 K/uL (0.0-0.7); EOSINOPHILS % (AUTO) 0.7 % (0.0-7.0); LYMPHOCYTES # (AUTO) 1.8 K/uL (20.0-40.0); MONOCYTES # (AUTO) 0.9 K/uL (2.0-10.0); MONOCYTES % (AUTO) 8.5 % (0.0-11.0)
[2018-11-26 17:16] LABS: BASOPHILS % (AUTO) 0.8 % (0.0-2.0); HEMATOCRIT 21.4 % (31.2-41.9); LYMPHOCYTES % (AUTO) 18.4 % (20.5-51.5); MEAN CORPUSCULAR HEMOGLOBIN 28.4 uug (24.7-32.8); MEAN CORPUSCULAR HGB CONC 34 g/dL (32.3-35.6); NEUTROPHILS # (AUTO) 7.2 K/uL (1.8-8.9); NEUTROPHILS % (AUTO) 71.6 % (38.5-71.5); PLATELET COUNT (AUTO) 633 K/uL (179-408); RED BLOOD CELL COUNT(AUTO) 2.55 MIL/uL (3.63-4.92)
[2018-11-26 17:18] LABS: CARBON DIOXIDE 25 mmol/L (21-32); CHLORIDE 104 mmol/L (98-107); GLUCOSE 189 mg/dL (74-106); POTASSIUM 3.4 mmol/L (3.5-5.1); UREA NITROGEN, BLOOD 14 mg/dL (7-18)
[2018-11-26 17:20] LABS: HEMOGLOBIN 7.2 g/dL (10.9-14.3)
[2018-11-26] MEDS: ZINC SULFATE 220 MG CAPSULE PO SCH (17:21)
[2018-11-26 17:24] LABS: ALKALINE PHOSPHATASE 69 U/L (50-136); ASPARTATE AMINOTRANSFERASE 17 U/L (15-37); BILIRUBIN,DIRECT 0.1 mg/dL (0.0-0.2); BILIRUBIN,TOTAL 0.3 mg/dL (0.2-1.0); LIPASE 60 U/L (73-393); TOTAL PROTEIN, SERUM 5.6 g/dL (6.4-8.2)
[2018-11-26] MEDS ORDERED: TICAGRELOR 90 MG TABLET PO ONE (17:27)
[2018-11-26 17:45] LABS: ALANINE AMINOTRANSFERASE 12 U/L (14-59)
[2018-11-26] MEDS: FAMOTIDINE 20 MG TABLET PO SCH (17:50)
--- NOTE | 2018-11-26 18:49 | NUR ---
Patient son will bring Tisha home medication tomorrow due to limited amount in pharmacy, Dr. Rowland was relayed critical lab values of hemoglobin of 7.2 and Hematocrit of 21.4 ; placed no new orders. Patient refused insulin coverage for blood sugar of 165 ; patient states that she will only accept coverage if she has blood sugar over 200 as that is what she follows at home . Dr. Rowland notified; placed no new orders. Patient educated on insulin coverage.
[2018-11-26] MEDS: IV NS 1000 ML 1,000 ML IV PRN (19:07)
--- NOTE | 2018-11-26 19:10 | NUR ---
Patient calm and comfortable with no signs of distress resting in bed; picture of wounds taken and running NS at 75ml /hr patient given 500cc of NS bolus upon arrival from Er due to transferring orders.
--- NOTE | 2018-11-26 20:00 | NUR ---
RECEIVED PT. AWAKE, ALERT & ORIENTED X3. DENIES PAIN THIS TIME. IVF NS @ 75CC.HR ON JAXON MIDLINE, INFUSING WELL. C-SCOPE SR W/ PACS. VOIDED 200CC DARK BRADLEY URINE , USES BEDPAN. HS CARE DONE & REPOSITIONED PT ON HER SIDE W/ HOB ELEVATED. NOT IN ANY DISTRESS.
[2018-11-26] MEDS: INSULIN REGULAR, HUMAN 300 UNIT/3 ML VIAL SQ PRN (20:20)
[2018-11-26] MEDS: ATORVASTATIN 20 MG TABLET PO SCH (20:21)
[2018-11-26 20:45] VITALS: BP 146/40
--- NOTE | 2018-11-26 23:45 | NUR ---
V/S STABLE. REPOSITIONED W/ HOB ELEVATED.
[2018-11-27] VITALS (9 sets, daily range): BP systolic 131–153; BP diastolic 40–64
--- NOTE | 2018-11-27 03:00 | NUR ---
AM CARE DONE CHANGED DIAPER. REPOSITIONED TO SIDE W/ HOB ELEVATED. Z-GUARD CREAM APPLIED TO PERIANAL AREA.
[2018-11-27] MEDS: OXYCODONE/APAP 5-325 MG TABLET PO PRN ×2 (04:10→20:18)
--- NOTE | 2018-11-27 05:30 | NUR ---
RESTING QUITELY AFTER PERCOCET 1 TAB GIVEN FOR GENERALIZED PAIN. NOT IN ANY DISTRESS.
[2018-11-27 06:48] LABS: BASOPHILS # (AUTO) 0.1 K/uL (0.0-8.0); BASOPHILS % (AUTO) 0.9 % (0.0-2.0); EOSINOPHILS # (AUTO) 0.2 K/uL (0.0-0.7); EOSINOPHILS % (AUTO) 2.3 % (0.0-7.0); LYMPHOCYTES # (AUTO) 2.5 K/uL (20.0-40.0); LYMPHOCYTES % (AUTO) 26.2 % (20.5-51.5); MEAN CORPUSCULAR HEMOGLOBIN 28.9 uug (24.7-32.8); MEAN CORPUSCULAR HGB CONC 33 g/dL (32.3-35.6); MONOCYTES # (AUTO) 0.8 K/uL (2.0-10.0); MONOCYTES % (AUTO) 8.8 % (0.0-11.0); NEUTROPHILS # (AUTO) 5.8 K/uL (1.8-8.9); NEUTROPHILS % (AUTO) 61.8 % (38.5-71.5); PLATELET COUNT (AUTO) 616 K/uL (179-408); WHITE BLOOD COUNT (AUTO) 9.4 K/uL (3.8-11.8)
[2018-11-27] MEDS: BLOOD SUGAR DIAGNOSTIC 1 EACH STRIP VI SCH ×4 (06:49→20:24)
[2018-11-27 06:57] LABS: CARBON DIOXIDE 27 mmol/L (21-32); CHLORIDE 106 mmol/L (98-107); CHOLESTEROL 143 mg/dL (<200); CREATININE 1.1 mg/dL (0.6-1.3); GLUCOSE 129 mg/dL (74-106); HDL CHOLESTEROL 32 mg/dL (40-60); MAGNESIUM 1.7 mg/dL (1.8-2.4); PHOSPHOROUS 3.3 mg/dL (2.5-4.9); POTASSIUM 3.4 mmol/L (3.5-5.1); TRIGLYCERIDES 171 MG/DL (30-150); UREA NITROGEN, BLOOD 15 mg/dL (7-18)
[2018-11-27] MEDS ORDERED: PANTOPRAZOLE SODIUM 40 MG TABLET.DR PO SCH (07:00)
[2018-11-27 07:01] LABS: RED BLOOD CELL COUNT(AUTO) 2.37 MIL/uL (3.63-4.92)
[2018-11-27 07:03] LABS: IRON, SERUM 21 ug/dL (50-175)
[2018-11-27 07:04] LABS: HEMOGLOBIN 6.8 g/dL (10.9-14.3)
[2018-11-27 07:05] LABS: HEMATOCRIT 20.6 % (31.2-41.9)
[2018-11-27 07:14] LABS: THYROID STIMULATING HORMONE 2.041 mIU/mL (0.358-3.740)
--- NOTE | 2018-11-27 07:15 | NUR ---
RECEIVED PATIENT LAYING IN BED, AWAKE ALERT AND ORIENTED X4. PATIENT DENIES PAIN AND DISCOMFORT. NO DISTRESS NOTED AT THIS TIME. BED IN LOWEST POSITION, SIDE RAILS UP X2, CALL LIGTH WITHIN REACH. WILL CONTINUE TO MONITOR.
[2018-11-27] MEDS: ASPIRIN 81 MG TAB.CHEW PO SCH (08:10)
[2018-11-27] MEDS: METOPROLOL SUCCINATE XL 50 MG TAB.SR.24H PO SCH (08:11)
[2018-11-27] MEDS: FAMOTIDINE 20 MG TABLET PO SCH (08:11)
[2018-11-27] MEDS: ZINC SULFATE 220 MG CAPSULE PO SCH ×2 (08:11→17:08)
[2018-11-27] MEDS: MIRALAX 17 GM POWD.PACK PO SCH (08:12)
[2018-11-27] MEDS: IV NS 1000 ML 1,000 ML IV PRN (08:12)
[2018-11-27] MEDS ORDERED: TICAGRELOR 90 MG TABLET PO ONE (09:00)
[2018-11-27] MEDS ORDERED: EPOETIN ALFA 10,000 UNITS/ML VIAL SQ SCH (09:00)
[2018-11-27] MEDS: ONDANSETRON 4 MG/2 ML VIAL IV PRN (09:25)
[2018-11-27 09:39] LABS: BASOPHILS % (MANUAL) 2 % (0-2); EOSINOPHILS % (MANUAL) 1 % (0-8); LYMPHOCYTES % (MANUAL) 22 % (20-40); MONOCYTES % (MANUAL) 6 % (2-10); NEUTROPHILS % (MANUAL) 69 % (42-75)
[2018-11-27 11:56] LABS: *OCCULT BLOOD STOOL NEGATIVE (NEGATIVE)
[2018-11-27] MEDS: INSULIN REGULAR, HUMAN 300 UNIT/3 ML VIAL SQ PRN ×2 (12:23→16:54)
[2018-11-27] MEDS ORDERED: MAGNESIUM SULFATE/D5W 100 ML IV SCH (12:45)
[2018-11-27] MEDS ORDERED: POTASSIUM CHLORIDE 20 MEQ TAB.PRT.SR PO ONE (12:45)
[2018-11-27] MEDS: MAGNESIUM SULFATE/D5W 100 ML IV SCH ×2 (17:08→18:23)
[2018-11-27] MEDS: TICAGRELOR 90 MG PO SCH (17:08)
--- NOTE | 2018-11-27 18:32 | NUR ---
PATIENT STABLE THROUGHOUT SHIFT. NO DISTRESS NOTED. PATIENT RECEIVED ONE UNIT OF PACKED RED BLOOD CELLS, NO TRANSFUSION REACTION NOTED. VITAL SIGNS STABLE THROUGHOUT TRANSFUSION. POTASSIUM AND MAGNESIUM REPLACED.
[2018-11-27] MEDS: ATORVASTATIN 20 MG TABLET PO SCH (20:18)
[2018-11-28 00:16] VITALS: BP 122/38
[2018-11-28] MEDS: IV NS 1000 ML 1,000 ML IV PRN ×2 (00:29→14:18)
[2018-11-28 04:28] VITALS: BP 109/37
[2018-11-28] MEDS: OXYCODONE/APAP 5-325 MG TABLET PO PRN ×2 (05:30→20:47)
--- NOTE | 2018-11-28 06:30 | NUR ---
patient slept intermittently throughout the night. no signs of acute distress. Percocet administered at 2017 and 529 with c/o of pain. patient tolerated well. no adverse effects. insulin not administered last night due to patients refusal despite education by pharmacy and myself, BS last night 128. during shift report it was reported to me that is aware of this situation.
[2018-11-28 06:31] LABS: CARBON DIOXIDE 24 mmol/L (21-32); CHLORIDE 108 mmol/L (98-107); CREATININE 1.1 mg/dL (0.6-1.3); GLUCOSE 141 mg/dL (74-106); MAGNESIUM 2.2 mg/dL (1.8-2.4); POTASSIUM 3.9 mmol/L (3.5-5.1); UREA NITROGEN, BLOOD 11 mg/dL (7-18)
[2018-11-28] MEDS: BLOOD SUGAR DIAGNOSTIC 1 EACH STRIP VI SCH ×4 (06:31→20:56)
[2018-11-28 08:44] LABS: BASOPHILS # (AUTO) 0.1 K/uL (0.0-8.0); EOSINOPHILS # (AUTO) 0.4 K/uL (0.0-0.7); EOSINOPHILS % (AUTO) 3.3 % (0.0-7.0); HEMATOCRIT 25.3 % (31.2-41.9); HEMOGLOBIN 8.2 g/dL (10.9-14.3); LYMPHOCYTES # (AUTO) 2.5 K/uL (20.0-40.0); LYMPHOCYTES % (AUTO) 20.8 % (20.5-51.5); MEAN CORPUSCULAR HEMOGLOBIN 27.9 uug (24.7-32.8); MEAN CORPUSCULAR HGB CONC 32 g/dL (32.3-35.6); MEAN CORPUSCULAR VOLUME 86.2 fL (75.5-95.3); MONOCYTES # (AUTO) 1.1 K/uL (2.0-10.0); NEUTROPHILS % (AUTO) 65.9 % (38.5-71.5); PLATELET COUNT (AUTO) 658 K/uL (179-408); RED BLOOD CELL COUNT(AUTO) 2.94 MIL/uL (3.63-4.92); WHITE BLOOD COUNT (AUTO) 12.1 K/uL (3.8-11.8)
[2018-11-28] MEDS: ZINC SULFATE 220 MG CAPSULE PO SCH ×2 (08:58→17:14)
[2018-11-28] MEDS: ASPIRIN 81 MG TAB.CHEW PO SCH (08:58)
[2018-11-28] MEDS: PANTOPRAZOLE SODIUM 40 MG VIAL IV SCH (08:58)
[2018-11-28] MEDS: MIRALAX 17 GM POWD.PACK PO SCH (09:00)
--- NOTE | 2018-11-28 09:00 | NUR ---
PATIENT IS AWAKE ALERT AND ORIENTED DENIES PAIN OR DISCOMFORTS AT THIS TIME.REMAIN ON IVF WITH MID LINE INTACT ASSISTED WITH REPOSITIONING Q2H TLE IS SR MADE COMFORTABLE AND WILL CONTINUE TO OBSERVE.
[2018-11-28] MEDS: TICAGRELOR 90 MG PO SCH ×2 (09:04→17:14)
[2018-11-28] MEDS: METOPROLOL SUCCINATE XL 50 MG TAB.SR.24H PO SCH (09:04)
[2018-11-28 11:41] VITALS: BP 136/45
--- NOTE | 2018-11-28 12:14 | NUR ---
BLOOD SUGAR IS 146 AND PATIENT CONTINUES TO REFUSE SLIDING SCALE INSULIN COVERAGE ORDERED MD AWARE.
[2018-11-28] MEDS: SOD FERRIC GLUC COMPLX/SUCROSE 125 MG in IV NORMAL SALINE 100 ML IV SCH (15:23)
[2018-11-28 16:20] VITALS: BP 143/46
--- NOTE | 2018-11-28 16:59 | NUR ---
BLOOD SUGAR IS 147 PATIENT CONTINUES TO REFUSE COVERAGE ORDERTED
--- NOTE | 2018-11-28 19:00 | NUR ---
RECEIVED PATIENT IN BED ALERT ORIENTED, NO SOB NO CHEST PAIN, TELE MONITOR SINUS RHYTHM AT THIS TIME, COMPLAIN OF MILD GEN BODY BODY, WILL MEDICATE FOR PAIN. CONT TO MONITOR.
[2018-11-28 20:03] VITALS: BP 168/55
[2018-11-28] MEDS: ATORVASTATIN 20 MG TABLET PO SCH (20:46)
--- NOTE | 2018-11-28 20:57 | NUR ---
BS 162 PATIENT CONTINUE TO REFUSED INSULIN COVERAGE. MD AWARE.
[2018-11-28 22:00] VITALS: BP 150/64
[2018-11-29 04:32] VITALS: BP 161/48
--- NOTE | 2018-11-29 04:50 | NUR ---
PATIENT HAS ELEVATED BP 161/48 NOTIFY JUNE, WITH ORDER CATAPRES 0.1MG PO Q 6 HRS FOR SBP >160.
[2018-11-29] MEDS: CLONIDINE HCL 0.1 MG TABLET PO PRN (05:20)
[2018-11-29] MEDS: BLOOD SUGAR DIAGNOSTIC 1 EACH STRIP VI SCH ×4 (05:26→20:56)
--- NOTE | 2018-11-29 06:33 | NUR ---
PATIENT REFUSED TO CHANGED AT THIS TIME PREFER TO SLEEP. BP 140/38, 78.
[2018-11-29 06:44] VITALS: BP 140/38
--- NOTE | 2018-11-29 07:30 | NUR ---
PATIENT RECEIVED ASLEEP IN BED SEEMS COMFORTABLE PER THE NOC SHIFT PATIENT DOES NOT WANT TO BE WOKEN UP WILL ALLOY HER TO SLEEP UNTIL BREAKFAST NO SHORTNESS OF BREATH AT THIS TIME.IVF REMAINS IN PROGRESS WITH THE MIDLINE LEFT UPPER ARM INTACT TELE IS INTACT WILL CONTINUE TO OBSERVE AND PROVIDE SAFE AND THERAPEUTIC ENVIRONMENT AT ALL TIMES.
[2018-11-29] MEDS: TICAGRELOR 90 MG PO SCH ×2 (08:57→16:49)
[2018-11-29] MEDS: ZINC SULFATE 220 MG CAPSULE PO SCH ×2 (08:57→16:49)
[2018-11-29] MEDS: PANTOPRAZOLE SODIUM 40 MG VIAL IV SCH (08:57)
[2018-11-29] MEDS: ASPIRIN 81 MG TAB.CHEW PO SCH (08:58)
[2018-11-29] MEDS: METOPROLOL SUCCINATE XL 50 MG TAB.SR.24H PO SCH (08:59)
[2018-11-29] MEDS: MIRALAX 17 GM POWD.PACK PO SCH (09:00)
--- NOTE | 2018-11-29 09:00 | NUR ---
DR BELL HERE TO SEE PATIENT WITH ORDERS PATIENT COMPLAINED THAT SHE HAS SOME SOB AT TIMES SAT IS AT 92 PERCENT AND NO SOB AT THIS TIME ORDERS NOTED AND CARRIED OUT.
[2018-11-29] MEDS ORDERED: FUROSEMIDE 40 MG/4 ML VIAL IV ONE (09:30)
[2018-11-29 11:33] VITALS: BP 112/49
[2018-11-29] MEDS: SOD FERRIC GLUC COMPLX/SUCROSE 125 MG in IV NORMAL SALINE 100 ML IV SCH (13:51)
[2018-11-29 16:07] VITALS: BP 151/48
--- NOTE | 2018-11-29 18:15 | NUR ---
PATIENT STILL HAS SCABS ON HER RIGHT ARM AND LEFT THIGH AND IS CONCERNED ABOUT IT BUT ITS SCABBED AND NOT OPEN AND NO DRAINAGE SO I CALLED AND SPOKE WITH DR BELL WITH ORDERS FOR TOPICAL ANTIBIOTICS PATIENT AWARE.
[2018-11-29 20:05] VITALS: BP 156/41
[2018-11-29] MEDS: NEOMY/BACITRAC/POLYMI OINT 28.35 GM TUBE TOP SCH (20:35)
[2018-11-29] MEDS: ATORVASTATIN 20 MG TABLET PO SCH (20:35)
[2018-11-29] MEDS: OXYCODONE/APAP 5-325 MG TABLET PO PRN (21:04)
--- NOTE | 2018-11-29 22:52 | NUR ---
patient refused insulin despite blood sugar being at 165. education was provided, but per patient concession attendant recommended no insulin unless >200. will continue to monitor patient and plan of care. Addendum: 11/29/18 at 2254 by DENTON SORENSEN RN aware of refusal for insulin.
[2018-11-30 00:46] VITALS: BP 140/52
[2018-11-30 04:00] VITALS: BP 186/58
--- NOTE | 2018-11-30 05:18 | NUR ---
patient slept intermittently. no signs of acute distress. v/s stable. Ambien administered for c/o of insomnia. Percocet administered for c/o of pain. patient tolerated well. no adverse effects. will continue to monitor.
[2018-11-30] MEDS: CLONIDINE HCL 0.1 MG TABLET PO PRN ×2 (05:51→11:06)
--- NOTE | 2018-11-30 05:52 | NUR ---
patients bp 186/58. clonidine administered. will continue to monitor.
[2018-11-30 05:54] LABS: BASOPHILS # (AUTO) 0.2 K/uL (0.0-8.0); BASOPHILS % (AUTO) 1.4 % (0.0-2.0); EOSINOPHILS # (AUTO) 0.6 K/uL (0.0-0.7); EOSINOPHILS % (AUTO) 5.6 % (0.0-7.0); HEMATOCRIT 26.1 % (31.2-41.9); HEMOGLOBIN 8.6 g/dL (10.9-14.3); LYMPHOCYTES # (AUTO) 1.9 K/uL (20.0-40.0); LYMPHOCYTES % (AUTO) 17.2 % (20.5-51.5); MEAN CORPUSCULAR HEMOGLOBIN 28.1 uug (24.7-32.8); MEAN CORPUSCULAR HGB CONC 33 g/dL (32.3-35.6); MEAN CORPUSCULAR VOLUME 85.1 fL (75.5-95.3); MONOCYTES # (AUTO) 0.9 K/uL (2.0-10.0); MONOCYTES % (AUTO) 7.6 % (0.0-11.0); NEUTROPHILS # (AUTO) 7.7 K/uL (1.8-8.9); NEUTROPHILS % (AUTO) 68.2 % (38.5-71.5); PLATELET COUNT (AUTO) 551 K/uL (179-408); RED BLOOD CELL COUNT(AUTO) 3.06 MIL/uL (3.63-4.92); WHITE BLOOD COUNT (AUTO) 11.2 K/uL (3.8-11.8)
[2018-11-30] MEDS: BLOOD SUGAR DIAGNOSTIC 1 EACH STRIP VI SCH ×4 (06:44→21:03)
[2018-11-30] MEDS: NEOMY/BACITRAC/POLYMI OINT 28.35 GM TUBE TOP SCH ×2 (08:18→20:51)
[2018-11-30] MEDS: ASPIRIN 81 MG TAB.CHEW PO SCH (08:18)
[2018-11-30] MEDS: TICAGRELOR 90 MG PO SCH ×2 (08:18→17:56)
[2018-11-30] MEDS: ZINC SULFATE 220 MG CAPSULE PO SCH ×2 (08:18→17:53)
[2018-11-30] MEDS: PANTOPRAZOLE SODIUM 40 MG VIAL IV SCH (08:18)
[2018-11-30] MEDS: MIRALAX 17 GM POWD.PACK PO SCH (08:19)
[2018-11-30] MEDS: METOPROLOL SUCCINATE XL 50 MG TAB.SR.24H PO SCH (08:20)
--- NOTE | 2018-11-30 08:20 | NUR ---
BLOOD PRESSURE AT THIS TIME IS 176/45 DUE MEDICATION OF METOPROLOL GIVEN ORDERED PATIENT IS ALERT AND ORIENTED AND ASSYMPTOMATIC WILL RECHECK HER BLOOD PRESSURE IN ABOUT AN HOUR OR SO AND WILL THEN ADMINISTER HER PRN ANTIHYPERTENSIVE IF NEEDED.CALL LIGHTS AND PERSONAL BELONGINGS PLACED WITHIN EASY REACH ON ROOM AIR WITH NO SHORTNESS OF BREATH MADE COMFORTABLE WILL CONTINUE TO OBSERVE.
[2018-11-30] MEDS: ONDANSETRON 4 MG/2 ML VIAL IV PRN (09:37)
--- NOTE | 2018-11-30 09:37 | NUR ---
NOTED ABOUT 30 ML OF EMESIS PATIENT STATED FEELS SICK TO HER STOMACH MEDICATED AT THIS TIME WITH ZOFRAN ORDERED AND WILL CONTINUE TO OBSERVE.
--- NOTE | 2018-11-30 11:06 | NUR ---
BLOOD PRESSURE IS ELEVATED AT 174/48 MEDICATED WITH CATAPRES ORDERED PATIENT STATED NO SYMPTOMS AT THIS TIME.
[2018-11-30 11:24] VITALS: BP 174/48
--- NOTE | 2018-11-30 11:38 | NUR ---
DR DIANDRA CONSTANTINO HERE AND SEEN PATIENT AWARE THAT PATIENT VOMITED AND HAS AN ELEVATED BLOOD PRESSURE BUT RECEIVED HER PRN ORDER OF CATAPRES STATED THAT PATIENT COULD BE DISCHARGED TODAY DISCHARGE ORDER NOTED.
[2018-11-30] MEDS: SOD FERRIC GLUC COMPLX/SUCROSE 125 MG in IV NORMAL SALINE 100 ML IV SCH (13:58)
--- NOTE | 2018-11-30 14:00 | NUR ---
PATIENTS SON JAXSON HERE AND HE SPOKE WITH DR BURNHAM AND STATED THAT HIS MOM IS NOT READY AND MORE OVER HER ASSISTED LIVING IS NOT READY TO RECEIVE HER YET.
[2018-11-30 15:29] VITALS: BP 155/48
--- NOTE | 2018-11-30 17:31 | NUR ---
THE PLAN IS TO CANCEL THE DISCHARGE PER DR JIM PATIENT AWARE SHE IS EATING HER DINNER AT THIS TIME AND HER STOMACH FEELS BETTER SHE CONTINUES TO REFUSE SLIDING SCALE ORDERED STATED HER OWN PRIMARY STRATEGIC CLIENT EXECUTIVE DOES NOT WANT HER TO TAKE INSULIN UNLESS HER BLOOD IS OVER 200 MD VELAZQUEZ MADE AWARE.
--- NOTE | 2018-11-30 18:36 | NUR ---
PATIENT IS RESTING IN BED WITH NO C/O AT THIS TIME MADE COMFORTABLE AND WILL CONTINUE TO OBSERVE.
--- NOTE | 2018-11-30 19:00 | NUR ---
PATIENT RECEIVED IN BED SLEEPING BUT EASILY AROUSABLE. PATIENT DENIES ANY DISCOMFORT OR DISTRESS. BED IS IN LOWEST POSITION, CALL LIGHT WITHIN REACH, SIDE RAILS UP X 2. REMINDED PATIENT TO USE CALL LIGHT IF NEEDING ASSISTANCE. MIDLINE INTACT AND PATENT. WILL CONTINUE TO MONITOR.
[2018-11-30 20:13] VITALS: BP 145/47
[2018-11-30] MEDS: ATORVASTATIN 20 MG TABLET PO SCH (20:45)
[2018-11-30] MEDS: ACETAMINOPHEN 325 MG TABLET PO PRN (21:00)
[2018-11-30] MEDS: INSULIN REGULAR, HUMAN 300 UNIT/3 ML VIAL SQ PRN (23:09)
[2018-12-01] VITALS: BP 142/54
[2018-12-01 05:56] VITALS: BP 141/63
[2018-12-01] MEDS: BLOOD SUGAR DIAGNOSTIC 1 EACH STRIP VI SCH ×4 (06:33→21:22)
--- NOTE | 2018-12-01 06:42 | NUR ---
PATIENT IS ALERT AND AWAKE, FALL PRECAUTIONS INITIATED. PATIENT KEPT CLEAN. NOTED DRESSING INTACT FOR LLE, MEPILEX ON LEFT UPPER BACK AND NOTED WITH MULTIPLE BRUISING. PATIENT IS IN NO APPRENT DISTRESS. NO DISCOMFORT VERBALIZED. BED IN LOWEST POSITION, CALL LIGHT WITHIN REACH, SIDE RAILS UP X2 BED ALARM ON. ENDORSED TO AM NURSE.
[2018-12-01] MEDS: ASPIRIN 81 MG TAB.CHEW PO SCH (08:42)
[2018-12-01] MEDS: METOPROLOL SUCCINATE XL 50 MG TAB.SR.24H PO SCH (08:42)
[2018-12-01] MEDS: ZINC SULFATE 220 MG CAPSULE PO SCH ×2 (08:42→16:27)
[2018-12-01] MEDS: PANTOPRAZOLE SODIUM 40 MG VIAL IV SCH (08:42)
[2018-12-01] MEDS: TICAGRELOR 90 MG PO SCH (08:43)
[2018-12-01 08:51] LABS: BASOPHILS # (AUTO) 0.1 K/uL (0.0-8.0); BASOPHILS % (AUTO) 0.8 % (0.0-2.0); EOSINOPHILS # (AUTO) 0.3 K/uL (0.0-0.7); HEMATOCRIT 28.9 % (31.2-41.9); HEMOGLOBIN 9.5 g/dL (10.9-14.3); LYMPHOCYTES # (AUTO) 1.6 K/uL (20.0-40.0); LYMPHOCYTES % (AUTO) 14.1 % (20.5-51.5); MEAN CORPUSCULAR HEMOGLOBIN 28.4 uug (24.7-32.8); MEAN CORPUSCULAR HGB CONC 33 g/dL (32.3-35.6); MEAN CORPUSCULAR VOLUME 86.8 fL (75.5-95.3); MONOCYTES # (AUTO) 0.7 K/uL (2.0-10.0); MONOCYTES % (AUTO) 6.3 % (0.0-11.0); NEUTROPHILS # (AUTO) 8.3 K/uL (1.8-8.9); NEUTROPHILS % (AUTO) 75.8 % (38.5-71.5); PLATELET COUNT (AUTO) 728 K/uL (179-408); RED BLOOD CELL COUNT(AUTO) 3.34 MIL/uL (3.63-4.92)
[2018-12-01] MEDS: NEOMY/BACITRAC/POLYMI OINT 28.35 GM TUBE TOP SCH ×2 (08:51→21:17)
[2018-12-01] MEDS: MIRALAX 17 GM POWD.PACK PO SCH (08:51)
--- NOTE | 2018-12-01 09:00 | NUR ---
RECEIVED AWAKE ALERT AND ORIENTED DENIES PAIN OR DISCOMFORTS AT THIS TIME ON ROOM AIR WITH NO SHORTNESS OF BREATH MADE COMFORTABLE WILL CONTINUE TO OBSERVE.
[2018-12-01] MEDS: ACETAMINOPHEN 325 MG TABLET PO PRN (11:15)
[2018-12-01 11:24] VITALS: BP 148/48
[2018-12-01] MEDS: SOD FERRIC GLUC COMPLX/SUCROSE 125 MG in IV NORMAL SALINE 100 ML IV SCH (13:19)
[2018-12-01] MEDS: EPOETIN ALFA 10,000 UNITS/ML VIAL SQ SCH (13:20)
[2018-12-01 16:25] VITALS: BP 178/60
[2018-12-01] MEDS: CLONIDINE HCL 0.1 MG TABLET PO PRN (16:27)
[2018-12-01] MEDS: TICAGRELOR 90 MG TABLET PO SCH (16:27)
--- NOTE | 2018-12-01 16:27 | NUR ---
BLOOD PRESSURE IS 178/60 MEDICATED WITH CATAPRES ORDERED DENIES SYMPTOMS AT THIS TIME WILL CONTINUE TO OBSERVE.
--- NOTE | 2018-12-01 18:30 | NUR ---
RESTING AT THIS TIME WILL CONTINUE TO OBSERVE.
--- NOTE | 2018-12-01 19:30 | NUR ---
PATIENT RECEIVED AWAKE, ALERT AND ORIENTED. VERBALLY RESPONSIVE. ABLE TO VERBALIZE NEEDS. INITIAL ASSESSMENT DONE. RECEIVED FULL REPORT FROM NURSE. DENIED ANY PAIN OR DISCOMFORT AT THIS TIME. NO SIGNS OF ACUTE DISTRESS. CONTINUED ON TELEMETRY MONITORING, SINUS RHYTHM. WILL CONTINUE TO MONITOR.
[2018-12-01 20:10] VITALS: BP 153/42
--- NOTE | 2018-12-01 21:00 | NUR ---
PATIENT FULL BODY ASSESSMENT DONE. ALL SKIN BREAKDOWN SITES NOTED. PHOTOS TAKEN PER POLICY. PATIENT HOWEVER REFUSED TO TAKE A FULL PICTURE OF THE BACK, REFUSING TO REMOVE DRESSING. ALSO REFUSED TO TAKE PHOTOS OF THE L LEG, ALSO WANTS TO KEEP DRESSING. PATIENT IS GETTING UPSET AND COMPLAINTS OF INCREASING DISCOMFORT AND PAIN. EXPLAINED IMPORTANCE OF MONITORING & DOCUMENTING SKIN BREAKDOWN , BUT STILL REFUSED. RESPECTED PATIENT'S WISHES, WILL INFORM AM NURSE TO TAKE PICTURE, REQUESTED BY PATIENT. ALL DUE MEDICATIONS GIVEN, INCLUDING PRN PAIN MEDICATION ORDERED. PATIENT COMPLAINING OF 7/10 BACK AND L LEG PAIN. REPOSITIONED IN BED. THINK BLANKET PROVIDED. ICE WATER GIVEN REQUESTED. CALL LIGHT AND REMOTE CONTROL WITHIN REACH. ALL NEEDS ATTENDED. WILL CONTINUE TO MONITOR PATIENT ON TELE.
[2018-12-01] MEDS: ATORVASTATIN 20 MG TABLET PO SCH (21:16)
[2018-12-01] MEDS: NYSTATIN POWDER 15 GM BOTTLE TOP SCH (21:16)
[2018-12-01] MEDS: OXYCODONE/APAP 5-325 MG TABLET PO PRN (21:18)
[2018-12-01 23:59] VITALS: BP 140/76
[2018-12-02] VITALS (7 sets, daily range): BP systolic 149–180; BP diastolic 48–60
--- NOTE | 2018-12-02 01:15 | NUR ---
PATIENT REMAINS SLEEPING COMFORTABLY IN BED. PAIN MEDICATION GIVEN AT 2100 APPEARS TO BE EFFECTIVE STILL AT THIS TIME. NO SIGNS OF DISCOMFORT NOTED. CALL LIGHT WITHIN REACH, AND ALL NEEDS ATTENDED.
[2018-12-02] MEDS: ACETAMINOPHEN 325 MG TABLET PO PRN (05:22)
[2018-12-02] MEDS: CLONIDINE HCL 0.1 MG TABLET PO PRN ×2 (05:22→17:44)
[2018-12-02] MEDS: PANTOPRAZOLE SODIUM 40 MG TABLET.DR PO SCH (06:22)
[2018-12-02] MEDS: BLOOD SUGAR DIAGNOSTIC 1 EACH STRIP VI SCH ×4 (06:33→20:47)
--- NOTE | 2018-12-02 08:00 | NUR ---
received awake alert and oriented, denies of pain at this time, tele SR 80's, explained plan of care- verbalized understanding, needs attended and safety measures maintained, call light within reach
[2018-12-02] MEDS: ASPIRIN 81 MG TAB.CHEW PO SCH (08:38)
[2018-12-02] MEDS: TICAGRELOR 90 MG TABLET PO SCH ×2 (08:38→17:46)
[2018-12-02] MEDS: ZINC SULFATE 220 MG CAPSULE PO SCH ×2 (08:38→17:44)
[2018-12-02] MEDS: METOPROLOL SUCCINATE XL 50 MG TAB.SR.24H PO SCH (08:40)
[2018-12-02] MEDS: NYSTATIN POWDER 15 GM BOTTLE TOP SCH ×2 (08:41→20:47)
[2018-12-02] MEDS: NEOMY/BACITRAC/POLYMI OINT 28.35 GM TUBE TOP SCH ×2 (08:42→20:48)
[2018-12-02] MEDS: MIRALAX 17 GM POWD.PACK PO SCH (08:43)
[2018-12-02] MEDS ORDERED: LIDOCAINE HCL 1% 20 ML VIAL IJ ONE (11:00)
[2018-12-02] MEDS ORDERED: FUROSEMIDE 40 MG/4 ML VIAL IV ONE (11:30)
[2018-12-02] MEDS ORDERED: MAGNESIUM OXIDE 400 MG TABLET PO ONE (11:30)
[2018-12-02] MEDS ORDERED: POTASSIUM CHLORIDE 20 MEQ TAB.PRT.SR PO ONE (11:30)
[2018-12-02] MEDS ORDERED: LOSARTAN POTASSIUM 50 MG TABLET PO SCH (11:30)
--- NOTE | 2018-12-02 11:30 | NUR ---
Dr Fontenot here, did debridement on right arm and left leg and dressed wounds himself, verbal order given to
[2018-12-02] MEDS: TOBRAMYCIN/DEXAMETH OPHT DROP 2.5 ML BOTTLE LEFTEYE SCH ×2 (11:56→17:44)
--- NOTE | 2018-12-02 12:30 | NUR ---
son here visiting
[2018-12-02] MEDS: AMLODIPINE 5 MG TABLET PO SCH (12:49)
[2018-12-02] MEDS: INSULIN REGULAR, HUMAN 300 UNIT/3 ML VIAL SQ PRN ×2 (12:50→18:04)
[2018-12-02] MEDS: SOD FERRIC GLUC COMPLX/SUCROSE 125 MG in IV NORMAL SALINE 100 ML IV SCH (13:57)
--- NOTE | 2018-12-02 18:07 | NUR ---
resting in stable condition, refused regular insulin for accuchecks at 1130 and before dinner- informed of the importance bur refused, all needs attended and met, BP 169/51- catapres 0.1mg given as prn, safety measures maintained, call liglht within reach, will monitor closely
[2018-12-02] MEDS: ONDANSETRON 4 MG/2 ML VIAL IV PRN (18:51)
--- NOTE | 2018-12-02 20:15 | NUR ---
PATIENT ALERT ORIENTED, PATIENT HAS EPISODE OF NAUSEA AND VOMITING, AM RN MEDICATED PATIENT FOR NAUSEA/VOMITING, AND ELEVATED BP. CURRENT BP 180/56, PATIENT HAS NO DIZZINESS, NO HEADACHES, ASYMPTOMATIC CONT TO MONITOR, DENIES PAIN.
[2018-12-02] MEDS: ATORVASTATIN 20 MG TABLET PO SCH (20:47)
--- NOTE | 2018-12-02 21:30 | NUR ---
PATIENT ALERT ORIENTED NO NAUSEA NO VOMITING NOTED, RECHECK BP 170/53, PATIENT HAS NO COMPLAIN OF DIZZINESS, HEADACHES, PATIENT ASYMPTOMATIC, PATIENT COMPLAIN OF R ARM WOUND PAIN, SP FALL PAIN MEDICATED FOR PAIN, WILL CONT TO MONITOR.
[2018-12-02] MEDS: OXYCODONE/APAP 5-325 MG TABLET PO PRN (21:37)
[2018-12-03 00:41] VITALS: BP 148/77
[2018-12-03] MEDS: TOBRAMYCIN/DEXAMETH OPHT DROP 2.5 ML BOTTLE LEFTEYE SCH ×5 (01:10→23:38)
[2018-12-03 04:00] VITALS: BP 139/49
[2018-12-03] MEDS: PANTOPRAZOLE SODIUM 40 MG TABLET.DR PO SCH (06:04)
--- NOTE | 2018-12-03 06:31 | NUR ---
PATIENT IS ALERT AND AWAKE, BP MANAGED . BP AT 0400 139/49 HR 77 . NO INCIDENT OF NAUSEA OR VOMITING AT THIS TIME. PATIENT SLEPT WELL. PATIENT REMAINS ASYMPTOMATIC, NO COMPLAINS OF CHEST PAIN, SOB , OR DIZZINESS. PAIN MANAGEMENT FOR RIGHT ARM PAIN. WILL CONTINUE TO MONITOR.
[2018-12-03] MEDS: BLOOD SUGAR DIAGNOSTIC 1 EACH STRIP VI SCH ×4 (06:43→21:05)
--- NOTE | 2018-12-03 07:20 | NUR ---
RECEIVED PATIENT IN BED AWAKE, ALERT AND ORIENTED X4. PATIENT DENIES ANY PAIN AND DISCOMFORT. NO DISTRESS NOTED AT THIS TIME. BED IN LOWEST POSITION, CALL LIGHT WITHIN REACH. WILL CONTINUE TO MONITOR.
[2018-12-03] MEDS: ASPIRIN 81 MG TAB.CHEW PO SCH (08:24)
[2018-12-03] MEDS: TICAGRELOR 90 MG TABLET PO SCH ×2 (08:26→16:38)
[2018-12-03] MEDS: AMLODIPINE 5 MG TABLET PO SCH ×2 (08:26→16:38)
[2018-12-03] MEDS: MIRALAX 17 GM POWD.PACK PO SCH (08:27)
[2018-12-03] MEDS: ZINC SULFATE 220 MG CAPSULE PO SCH ×2 (08:27→16:38)
[2018-12-03] MEDS: METOPROLOL SUCCINATE XL 50 MG TAB.SR.24H PO SCH (08:27)
[2018-12-03] MEDS: NYSTATIN POWDER 15 GM BOTTLE TOP SCH ×2 (08:27→21:02)
[2018-12-03] MEDS: NEOMY/BACITRAC/POLYMI OINT 28.35 GM TUBE TOP SCH ×2 (09:20→21:00)
[2018-12-03 10:35] VITALS: BP 169/49
[2018-12-03] MEDS: INSULIN REGULAR, HUMAN 300 UNIT/3 ML VIAL SQ PRN ×2 (11:54→21:07)
[2018-12-03 14:58] VITALS: BP 165/57
--- NOTE | 2018-12-03 15:59 | NUR ---
pt blood sugar is 141 and pt refused the insulin md made aware
--- NOTE | 2018-12-03 17:09 | NUR ---
12/03/18 Had been in contact with [employer] [ ] who is the medical supply company that [facility] contacted to provide the hospital bed. Unfortunately, they were very uncoooperative with the delivery of the hospital bed so this packing line worker called Andrew from [facility] [employer] - [ ; ] and requested for a semi-electric hospital bed with 1/2 rail. Also spoke to Jason from [facility] to make sure they have the correct address of the [facility] and she confirmed that they will deliver the hospital bed tomorrow, 12/04/18, to [facility] between 11:00 a.m. to 3:00 p.m. Also had been in contact with Emeli Li [ ; ] and Jada from [facility] and provided them with all the information needed. They confirmed that they will be able to take the patient after her son signs all the paperwork tomorrow and once they receive the bed. Spoke to her son, Alejo [ ], and updated him on the situation. He and the patient were very thankful for the care they received in the hospital. The patient will be discharged tomorrow to [facility] [ ; [address] [place] [address]] and her son will be picking her up via private car. Updated the water/wastewater project engineer, Krista, on the discharge plan.
--- NOTE | 2018-12-03 19:30 | NUR ---
Received patient in bed AAOx4. No c/o pain at this time. No SOB, not in distress. JAXON midline intact and patent. Safety measures observed. Call light within reach
[2018-12-03 20:00] VITALS: BP 153/55
[2018-12-03] MEDS: ATORVASTATIN 20 MG TABLET PO SCH (21:02)
[2018-12-03] MEDS: OXYCODONE/APAP 5-325 MG TABLET PO PRN (21:14)
[2018-12-03] MEDS ORDERED: NEOMY/BACITRA/POLYMYXIN B OINT UD PACKET TP ONE (22:12)
[2018-12-04 04:00] VITALS: BP 151/50
[2018-12-04] MEDS: TOBRAMYCIN/DEXAMETH OPHT DROP 2.5 ML BOTTLE LEFTEYE SCH ×2 (05:59→12:11)
[2018-12-04] MEDS: PANTOPRAZOLE SODIUM 40 MG TABLET.DR PO SCH (06:00)
[2018-12-04] MEDS: BLOOD SUGAR DIAGNOSTIC 1 EACH STRIP VI SCH ×3 (06:35→17:01)
--- NOTE | 2018-12-04 06:56 | NUR ---
Patient slept intermittently through out the night. No SOB noted, not in distress at this time. No c/o pain. JAXON mid-line intact and patent. Safety measures observed. Will endorse accordingly
[2018-12-04] MEDS: ZINC SULFATE 220 MG CAPSULE PO SCH ×2 (08:52→16:50)
[2018-12-04] MEDS: METOPROLOL SUCCINATE XL 50 MG TAB.SR.24H PO SCH (08:56)
[2018-12-04] MEDS: ASPIRIN 81 MG TAB.CHEW PO SCH (08:57)
[2018-12-04] MEDS: TICAGRELOR 90 MG TABLET PO SCH ×2 (08:58→16:51)
[2018-12-04] MEDS: AMLODIPINE 5 MG TABLET PO SCH ×2 (08:58→16:50)
[2018-12-04] MEDS: MIRALAX 17 GM POWD.PACK PO SCH ×3 (08:59→09:04)
[2018-12-04] MEDS: NYSTATIN POWDER 15 GM BOTTLE TOP SCH (08:59)
[2018-12-04] MEDS: NEOMY/BACITRAC/POLYMI OINT 28.35 GM TUBE TOP SCH (08:59)
[2018-12-04] MEDS ORDERED: hydrALAZINE HCL 25 MG TABLET PO PRN (09:45)
[2018-12-04] MEDS ORDERED: FUROSEMIDE 20 MG/2 ML VIAL IV ONE (09:45)
[2018-12-04 10:35] LABS: BASOPHILS # (AUTO) 0.1 K/uL (0.0-8.0)
[2018-12-04 10:46] LABS: EOSINOPHILS # (AUTO) 0.2 K/uL (0.0-0.7); EOSINOPHILS % (AUTO) 1.2 % (0.0-7.0); HEMATOCRIT 30.6 % (31.2-41.9); LYMPHOCYTES # (AUTO) 1.7 K/uL (20.0-40.0); LYMPHOCYTES % (AUTO) 11.8 % (20.5-51.5); MEAN CORPUSCULAR HEMOGLOBIN 28.6 uug (24.7-32.8); MEAN CORPUSCULAR HGB CONC 33 g/dL (32.3-35.6); MEAN CORPUSCULAR VOLUME 87.4 fL (75.5-95.3); MONOCYTES # (AUTO) 1.2 K/uL (2.0-10.0); MONOCYTES % (AUTO) 8.4 % (0.0-11.0); NEUTROPHILS # (AUTO) 11.3 K/uL (1.8-8.9); NEUTROPHILS % (AUTO) 77.6 % (38.5-71.5); PLATELET COUNT (AUTO) 756 K/uL (179-408)
--- NOTE | 2018-12-04 10:47 | NUR ---
0955am JORGE spoke with the patient inside her room and is aware that the plan is to discharge today to [facility]. The patient is aware that private transportation was arranged with Alejo [son]. Per pt: she is not comfortable in a private car and is requesting to look into a van or if needed, she will pay out of pocket for transportation. 1025am JORGE received a call from Emeli from [facility] who stated that [facility], did not have a current TB test done and that the last one on file was from 2017. They are requesting a CXR to R/O TB. 1100am Per Dr. Fontenot: orders for CXR to R/O TB, noted and carried out. 1105am JORGE spoke with the patient in regards to transportation. The patient stated that she would rather go via private transportation then paying out of pocket.
[2018-12-04 10:48] LABS: WHITE BLOOD COUNT (AUTO) 14.5 K/uL (3.8-11.8)
--- NOTE | 2018-12-04 11:59 | NUR ---
Per Alejo [son]: the patient feels comfortable with a wheelchair van transportation. [facility] has been contact and are available to provide transportation today between 3-4pm. [facility] FAX:[phone]
--- NOTE | 2018-12-04 13:44 | NUR ---
CM spoke with Emeli from [facility] and verified that they received the patient's negative TB CXR results and have accepted the patient. CM spoke with the patient and Alejo and have been updated on the admission to [facility]. Per Alejo: confirmation was obtained with [facility] that the patient will be picked up between 3-4pm. CM previously spoke with Shahrzad from [facility] @ 1235pm confirming crop picker between 3-4pm. Dr. Fontenot to change dressings on the patient. Jennifer HUANG, was updated on the patient discharge plans.
[2018-12-04] MEDS: EPOETIN ALFA 10,000 UNITS/ML VIAL SQ SCH (14:52)
[2018-12-04] MEDS: CLONIDINE HCL 0.1 MG TABLET PO PRN (14:56)
--- NOTE | 2018-12-04 16:45 | NUR ---
[facility]. Patient stated that told her to take home triple antibiotic, nystatin , eyedrops for left and zinc ointment for redness on buttocks; followed up with Dr. Fontenot per Dr. Fontenot patient is allowed to take medications with her home; patient given package of berlinta that was brought home from her son. Patient in stable condition with no signs of distress; all skin abrasion dressing changed ; most pictures taken of skin abrasions ; patient refused pictures of some as she did not want dressing changed. Patient educated on follow up with primary care physician for any further refills or prescriptions. Patient left via Medical transportation.
[2018-12-04 16:50] VITALS: BP 173/50
--- NOTE | 2018-12-04 16:50 | NUR ---
JORGE spoke with Jada from [facility] who stated to fax the patient's TMS (orders) to [facility] at FAX:[phone] PHONE:[phone], in order to expedite her medications
== END 2018-12-04 17:00 | DRG 604 ==
LOC: ER 09:16 → MEDSURG3 10:59 → TELE3 14:33 → MEDSURG3 12-02 15:00
PROC: 30233N1 Transfusion of Nonautologous Red Blood Cells into Peripheral Vein, Percutaneous Approach (ICD-10-PCS; principal; 2018-11-27)
PROC: 0HBJXZZ Excision of Left Upper Leg Skin, External Approach (ICD-10-PCS; 2018-12-02)
DX: S71.112A Laceration without foreign body, left thigh, initial encounter (principal); I50.33 Acute on chronic diastolic (congestive) heart failure; L97.828 Non-pressure chronic ulcer of other part of left lower leg with other specified severity; D50.0 Iron deficiency anemia secondary to blood loss (chronic); S81.812A Laceration without foreign body, left lower leg, initial encounter; W01.0XXA Fall on same level from slipping, tripping and stumbling without subsequent striking against object, initial encounter; Y92.031 Bathroom in apartment as the place of occurrence of the external cause; Y93.E1 Activity, personal bathing and showering; I25.10 Atherosclerotic heart disease of native coronary artery without angina pectoris; Z95.5 Presence of coronary angioplasty implant and graft; M10.9 Gout, unspecified; I11.0 Hypertensive heart disease with heart failure; E78.5 Hyperlipidemia, unspecified; E66.9 Obesity, unspecified; Z68.31 Body mass index [BMI] 31.0-31.9, adult; I87.2 Venous insufficiency (chronic) (peripheral); E11.9 Type 2 diabetes mellitus without complications; G89.29 Other chronic pain; Z79.02 Long term (current) use of antithrombotics/antiplatelets; M16.0 Bilateral primary osteoarthritis of hip; I70.0 Atherosclerosis of aorta; I27.20 Pulmonary hypertension, unspecified; M11.20 Other chondrocalcinosis, unspecified site; Z79.82 Long term (current) use of aspirin; Z79.899 Other long term (current) drug therapy; Z79.4 Long term (current) use of insulin; I87.8 Other specified disorders of veins
CPT/HCPCS: 36415; 70030-TC; 70450; 71045; 72072; 72100; 72125; 72170; 73110; 73551; 83550; 83690; 83735; 84100; 84443; 85025; 85730; 86850; 86900; 86901; 86920; 93005; A4217; A4663; C9113; G0378; J0885; J1815; J1940; J2405; J2916; J3475; J3490; J7030; J7040; P9016-BL; P9021

== ENCOUNTER 2018-12-14 09:21 | Inpatient (IN) | payer MEDICARE, BC ==
[~2018-12-14] VITALS: Ht 160 cm; Wt 85.7 kg
[~2018-12-14 09:21] MED LIST changes: -AMLO5TAB9 PO; +BENZ-13 PO; +CARB15DR OP; -DEXT50DI8 IV; +EPOE1VIA6 IJ; -FURO20TA4 PO; -GLIM2TAB PO; -HYDR-500 PO; -HYDR-894 PO; -INSU100V28; +INSU100V39 SQ; +MAGN30TA2 PO; +METO-295 PO; +MULT1TAB73 PO; +ONDA4TAB5 PO; -PIOG30TA10 PO; -SITA50TA PO; -SODI100010 PO; +SODI650T PO; -SOLI10TA2 PO; +ZINC220C8 PO
[2018-12-14 10:00] LABS: BASOPHILS # (AUTO) 0.1 K/uL (0.0-8.0); BASOPHILS % (AUTO) 1.2 % (0.0-2.0); EOSINOPHILS # (AUTO) 0.2 K/uL (0.0-0.7); EOSINOPHILS % (AUTO) 2.5 % (0.0-7.0); HEMATOCRIT 30.5 % (31.2-41.9); HEMOGLOBIN 9.9 g/dL (10.9-14.3); LYMPHOCYTES # (AUTO) 1.8 K/uL (20.0-40.0); LYMPHOCYTES % (AUTO) 19.3 % (20.5-51.5); MEAN CORPUSCULAR HGB CONC 33 g/dL (32.3-35.6); MEAN CORPUSCULAR VOLUME 86.1 fL (75.5-95.3); MONOCYTES # (AUTO) 0.7 K/uL (2.0-10.0); MONOCYTES % (AUTO) 7.5 % (0.0-11.0); NEUTROPHILS # (AUTO) 6.6 K/uL (1.8-8.9); NEUTROPHILS % (AUTO) 69.5 % (38.5-71.5); PLATELET COUNT (AUTO) 889 K/uL (179-408); RED BLOOD CELL COUNT(AUTO) 3.54 MIL/uL (3.63-4.92); WHITE BLOOD COUNT (AUTO) 9.5 K/uL (3.8-11.8)
[2018-12-14] MEDS ORDERED: ALBUTEROL SULFATE 2.5 MG/3 ML NEBU NEB ONE (10:00)
[2018-12-14] MEDS ORDERED: IPRATROPIUM BROMIDE 0.5 MG/2.5 ML NEBU NEB ONE (10:00)
[2018-12-14] MEDS ORDERED: ONDANSETRON 4 MG/2 ML VIAL IV ONE (10:00)
[2018-12-14] MEDS ORDERED: ALBUTEROL SULFATE 2.5 MG/3 ML NEBU ONE (10:05)
[2018-12-14] MEDS ORDERED: IPRATROPIUM BROMIDE 0.5 MG/2.5 ML NEBU ONE (10:05)
[2018-12-14 10:07] LABS: CARBON DIOXIDE 24 mmol/L (21-32); CHLORIDE 107 mmol/L (98-107); CREATININE 0.8 mg/dL (0.6-1.3); GLUCOSE 147 mg/dL (74-106); POTASSIUM 4.2 mmol/L (3.5-5.1); UREA NITROGEN, BLOOD 6 mg/dL (7-18)
[2018-12-14] MEDS ORDERED: ONDANSETRON 4 MG/2 ML VIAL ONE (10:08)
[2018-12-14 10:19] LABS: ALANINE AMINOTRANSFERASE 11 U/L (14-59); ALKALINE PHOSPHATASE 108 U/L (50-136); ASPARTATE AMINOTRANSFERASE 18 U/L (15-37); BILIRUBIN,DIRECT 0.1 mg/dL (0.0-0.2); BILIRUBIN,TOTAL 0.4 mg/dL (0.2-1.0)
[2018-12-14] MEDS ORDERED: EPOE1VIA12 IJ (10:28)
[2018-12-14] MEDS ORDERED: ZOLP5TAB8 PO (10:28)
[2018-12-14] MEDS ORDERED: CLON0.1T PO (10:28)
[2018-12-14] MEDS ORDERED: HUMULIN R SQ (10:28)
[2018-12-14] MEDS ORDERED: NEOM1PAC2 TP (10:30)
[2018-12-14] MEDS ORDERED: FUROSEMIDE 20 MG/2 ML VIAL IV ONE (10:30)
[2018-12-14] MEDS ORDERED: FUROSEMIDE 40 MG/4 ML VIAL ONE (10:40)
[2018-12-14 12:00] VITALS: BP 172/64
[2018-12-14] MEDS ORDERED: ACETAMINOPHEN 325 MG TABLET PO PRN (13:00)
[2018-12-14] MEDS ORDERED: CLONIDINE HCL 0.1 MG TABLET PO PRN (13:00)
[2018-12-14] MEDS ORDERED: ZOLPIDEM 5 MG TABLET PO SCH (13:00)
[2018-12-14] MEDS ORDERED: ALBUTEROL SULFATE 2.5 MG/ 0.5 ML NEBU NEB PRN (13:15)
[2018-12-14] MEDS ORDERED: ONDANSETRON 4 MG/2 ML VIAL IV PRN (13:15)
[2018-12-14] MEDS ORDERED: MORPHINE SULFATE 2 MG/1 ML DISP.SYRIN IV PRN (13:15)
[2018-12-14] MEDS ORDERED: BLOOD SUGAR DIAGNOSTIC 1 EACH STRIP VI SCH (16:30)
[2018-12-14 16:44] VITALS: BP 161/50
[2018-12-14] MEDS ORDERED: TICAGRELOR 90 MG TABLET PO ONE (17:00)
[2018-12-14] MEDS ORDERED: INSULIN REGULAR, HUMAN 300 UNIT/3 ML VIAL SQ PRN (17:30)
[2018-12-14] MEDS ORDERED: DEXTROSE 50% 50 ML DISP.SYRIN IV PRN (17:30)
[2018-12-14] MEDS: ASPIRIN 81 MG TAB.CHEW PO SCH (17:39)
[2018-12-14 19:30] VITALS: BP 160/59
[2018-12-14] MEDS: ATORVASTATIN 20 MG TABLET PO SCH (20:33)
[2018-12-14] MEDS: OXYCODONE/APAP 5-325 MG TABLET PO PRN (20:50)
[2018-12-14] MEDS: BLOOD SUGAR DIAGNOSTIC 1 EACH STRIP VI SCH (21:24)
[2018-12-15 00:30] VITALS: BP 167/51
[2018-12-15] MEDS: ENALAPRILAT DIHYDRATE 1.25 MG/1 ML VIAL IV PRN ×2 (01:07→13:51)
[2018-12-15 04:30] VITALS: BP 158/61
[2018-12-15] MEDS: PANTOPRAZOLE SODIUM 40 MG TABLET.DR PO SCH (06:10)
[2018-12-15 06:46] LABS: BASOPHILS # (AUTO) 0.1 K/uL (0.0-8.0); BASOPHILS % (AUTO) 0.8 % (0.0-2.0); EOSINOPHILS # (AUTO) 0.4 K/uL (0.0-0.7); EOSINOPHILS % (AUTO) 5.8 % (0.0-7.0); HEMATOCRIT 28.8 % (31.2-41.9); HEMOGLOBIN 9.6 g/dL (10.9-14.3); LYMPHOCYTES # (AUTO) 1.4 K/uL (20.0-40.0); LYMPHOCYTES % (AUTO) 19.5 % (20.5-51.5); MEAN CORPUSCULAR HEMOGLOBIN 28.4 uug (24.7-32.8); MEAN CORPUSCULAR HGB CONC 33 g/dL (32.3-35.6); MEAN CORPUSCULAR VOLUME 85.4 fL (75.5-95.3); MONOCYTES # (AUTO) 0.6 K/uL (2.0-10.0); MONOCYTES % (AUTO) 8.5 % (0.0-11.0); NEUTROPHILS # (AUTO) 4.8 K/uL (1.8-8.9); NEUTROPHILS % (AUTO) 65.4 % (38.5-71.5); PLATELET COUNT (AUTO) 747 K/uL (179-408); RED BLOOD CELL COUNT(AUTO) 3.37 MIL/uL (3.63-4.92); WHITE BLOOD COUNT (AUTO) 7.3 K/uL (3.8-11.8)
[2018-12-15 07:08] LABS: ALANINE AMINOTRANSFERASE 10 U/L (14-59); ALKALINE PHOSPHATASE 94 U/L (50-136); ASPARTATE AMINOTRANSFERASE 15 U/L (15-37); BILIRUBIN,TOTAL 0.3 mg/dL (0.2-1.0); CARBON DIOXIDE 26 mmol/L (21-32); CHLORIDE 108 mmol/L (98-107); CREATININE 0.9 mg/dL (0.6-1.3); GLUCOSE 130 mg/dL (74-106); MAGNESIUM 1.3 mg/dL (1.8-2.4); PHOSPHOROUS 3.4 mg/dL (2.5-4.9); POTASSIUM 3.7 mmol/L (3.5-5.1); TOTAL PROTEIN, SERUM 6.4 g/dL (6.4-8.2); UREA NITROGEN, BLOOD 8 mg/dL (7-18)
[2018-12-15 07:25] LABS: IRON, SERUM 29 ug/dL (50-175)
[2018-12-15 07:52] LABS: *BILIRUBIN,URIN NEGATIVE (NEGATIVE); *BLOOD, URINE NEGATIVE (NEGATIVE); *CLARITY,URINE CLEAR (CLEAR); *COLOR,URINE YELLOW (YELLOW); *KETONES,URINE NEGATIVE (NEGATIVE); *UROBILINOGEN,URINE 0.2 E.U./dl (NORMAL); LEUKOCYTE ESTERASE ,URINE TRACE (NEGATIVE); NITRITE, URINE NEGATIVE (NEGATIVE); UGLUCOSE NEGATIVE (NEGATIVE)
[2018-12-15 08:10] LABS: BACTERIA,URINE FEW /HPF (NONE SEEN); RBC,URINE NONE SEEN /HPF (0-3); SQUAMOUS EPITHELIAL CELL,UR MODERATE /HPF (NONE SEEN)
[2018-12-15] MEDS: ASPIRIN 81 MG TAB.CHEW PO SCH (08:18)
[2018-12-15] MEDS: GLIMEPIRIDE 2 MG TABLET PO SCH (08:19)
[2018-12-15] MEDS: ZINC SULFATE 220 MG CAPSULE PO SCH (08:20)
[2018-12-15] MEDS: METOPROLOL SUCCINATE XL 50 MG TAB.SR.24H PO SCH (08:20)
[2018-12-15] MEDS: BLOOD SUGAR DIAGNOSTIC 1 EACH STRIP VI SCH ×4 (08:22→21:19)
[2018-12-15] MEDS: MIRALAX 17 GM POWD.PACK PO SCH (08:22)
[2018-12-15] MEDS: MAGNESIUM SULFATE/D5W 100 ML IV SCH ×3 (08:27→10:18)
[2018-12-15] MEDS: TICAGRELOR 90 MG TABLET PO SCH ×2 (08:28→17:13)
[2018-12-15] MEDS: FUROSEMIDE 20 MG TABLET PO SCH (08:28)
[2018-12-15] MEDS ORDERED: FUROSEMIDE 20 MG/2 ML VIAL IV SCH (09:00)
[2018-12-15 12:15] VITALS: BP 166/60
[2018-12-15] MEDS: CEFTRIAXONE 1 G in IV DEXTROSE 5% 50 ML IV SCH (14:21)
[2018-12-15] MEDS ORDERED: Z GUARD REMEDY PASTE 57 GM TUBE TOP PRN (14:30)
[2018-12-15 16:30] VITALS: BP 160/53
[2018-12-15] MEDS: NEOMY/BACITRAC/POLYMI OINT 28.35 GM TUBE TOP SCH (17:14)
[2018-12-15] MEDS ORDERED: ENOXAPARIN SODIUM 80 MG/0.8 ML DISP.SYRIN SQ SCH ×2 (18:30→18:45)
[2018-12-15] MEDS: OXYCODONE/APAP 5-325 MG TABLET PO PRN (19:14)
[2018-12-15] MEDS: ATORVASTATIN 20 MG TABLET PO SCH (21:17)
[2018-12-15] MEDS: MUPIROCIN 2% OINT 22 GM TUBE NS SCH (21:17)
[2018-12-15] MEDS: NYSTATIN OINTMENT 15 GM TUBE TOP SCH (21:17)
[2018-12-15] MEDS: Z GUARD REMEDY PASTE 57 GM TUBE TOP SCH (21:19)
[2018-12-15 21:39] VITALS: BP 179/53
[2018-12-16] MEDS: PANTOPRAZOLE SODIUM 40 MG TABLET.DR PO SCH (06:03)
[2018-12-16 06:27] VITALS: BP 174/61
[2018-12-16] MEDS: BLOOD SUGAR DIAGNOSTIC 1 EACH STRIP VI SCH ×4 (07:01→20:39)
[2018-12-16 07:10] LABS: CARBON DIOXIDE 26 mmol/L (21-32); CHLORIDE 106 mmol/L (98-107); CREATININE 0.9 mg/dL (0.6-1.3); GLUCOSE 98 mg/dL (74-106); POTASSIUM 4.1 mmol/L (3.5-5.1); UREA NITROGEN, BLOOD 7 mg/dL (7-18)
[2018-12-16 07:11] LABS: BASOPHILS # (AUTO) 0.1 K/uL (0.0-8.0); BASOPHILS % (AUTO) 0.6 % (0.0-2.0); EOSINOPHILS # (AUTO) 0.7 K/uL (0.0-0.7); EOSINOPHILS % (AUTO) 7.8 % (0.0-7.0); HEMOGLOBIN 9.8 g/dL (10.9-14.3); LYMPHOCYTES # (AUTO) 1.5 K/uL (20.0-40.0); LYMPHOCYTES % (AUTO) 17.1 % (20.5-51.5); MEAN CORPUSCULAR HEMOGLOBIN 27.9 uug (24.7-32.8); MEAN CORPUSCULAR HGB CONC 33 g/dL (32.3-35.6); MEAN CORPUSCULAR VOLUME 85.5 fL (75.5-95.3); MONOCYTES # (AUTO) 0.7 K/uL (2.0-10.0); MONOCYTES % (AUTO) 7.7 % (0.0-11.0); NEUTROPHILS # (AUTO) 5.8 K/uL (1.8-8.9); NEUTROPHILS % (AUTO) 66.8 % (38.5-71.5); PLATELET COUNT (AUTO) 710 K/uL (179-408); RED BLOOD CELL COUNT(AUTO) 3.51 MIL/uL (3.63-4.92); WHITE BLOOD COUNT (AUTO) 8.7 K/uL (3.8-11.8)
[2018-12-16] MEDS: GLIMEPIRIDE 2 MG TABLET PO SCH (08:47)
[2018-12-16] MEDS: ZINC SULFATE 220 MG CAPSULE PO SCH (09:45)
[2018-12-16] MEDS: MIRALAX 17 GM POWD.PACK PO SCH (09:45)
[2018-12-16] MEDS: FUROSEMIDE 20 MG TABLET PO SCH (09:45)
[2018-12-16] MEDS: ASPIRIN 81 MG TAB.CHEW PO SCH (09:45)
[2018-12-16] MEDS: MUPIROCIN 2% OINT 22 GM TUBE NS SCH ×2 (09:46→20:32)
[2018-12-16] MEDS: TICAGRELOR 90 MG TABLET PO SCH (09:46)
[2018-12-16] MEDS: NYSTATIN OINTMENT 15 GM TUBE TOP SCH ×2 (09:47→20:32)
[2018-12-16] MEDS: NEOMY/BACITRAC/POLYMI OINT 28.35 GM TUBE TOP SCH (09:49)
[2018-12-16] MEDS: Z GUARD REMEDY PASTE 57 GM TUBE TOP SCH ×2 (09:49→20:33)
[2018-12-16] MEDS: METOPROLOL SUCCINATE XL 50 MG TAB.SR.24H PO SCH (09:55)
[2018-12-16] MEDS: OXYCODONE/APAP 5-325 MG TABLET PO PRN ×2 (10:04→20:47)
[2018-12-16 11:38] VITALS: BP 116/59
[2018-12-16] MEDS: APIXABAN 5 MG TABLET PO SCH ×2 (12:44→17:51)
[2018-12-16] MEDS: LOSARTAN POTASSIUM 25 MG TABLET PO SCH (12:44)
[2018-12-16] MEDS: CEFTRIAXONE 1 G in IV DEXTROSE 5% 50 ML IV SCH (14:15)
[2018-12-16 15:38] VITALS: BP 158/51
[2018-12-16] MEDS: ATORVASTATIN 20 MG TABLET PO SCH (20:31)
[2018-12-16 23:16] VITALS: BP 171/51
[2018-12-17 05:49] VITALS: BP 155/53
[2018-12-17] MEDS: PANTOPRAZOLE SODIUM 40 MG TABLET.DR PO SCH (06:07)
[2018-12-17 06:28] LABS: BASOPHILS % (AUTO) 0.7 % (0.0-2.0); EOSINOPHILS # (AUTO) 0.5 K/uL (0.0-0.7); EOSINOPHILS % (AUTO) 7.2 % (0.0-7.0); HEMOGLOBIN 9.8 g/dL (10.9-14.3); LYMPHOCYTES # (AUTO) 1.5 K/uL (20.0-40.0); LYMPHOCYTES % (AUTO) 20.1 % (20.5-51.5); MEAN CORPUSCULAR HEMOGLOBIN 27.8 uug (24.7-32.8); MEAN CORPUSCULAR HGB CONC 33 g/dL (32.3-35.6); MEAN CORPUSCULAR VOLUME 85.3 fL (75.5-95.3); MONOCYTES # (AUTO) 0.6 K/uL (2.0-10.0); MONOCYTES % (AUTO) 8.1 % (0.0-11.0); NEUTROPHILS # (AUTO) 4.6 K/uL (1.8-8.9); NEUTROPHILS % (AUTO) 63.9 % (38.5-71.5); PLATELET COUNT (AUTO) 671 K/uL (179-408); RED BLOOD CELL COUNT(AUTO) 3.51 MIL/uL (3.63-4.92); WHITE BLOOD COUNT (AUTO) 7.3 K/uL (3.8-11.8)
[2018-12-17 06:31] LABS: CARBON DIOXIDE 30 mmol/L (21-32); CHLORIDE 106 mmol/L (98-107); CREATININE 0.9 mg/dL (0.6-1.3); GLUCOSE 85 mg/dL (74-106); POTASSIUM 4.2 mmol/L (3.5-5.1); UREA NITROGEN, BLOOD 8 mg/dL (7-18)
[2018-12-17] MEDS: BLOOD SUGAR DIAGNOSTIC 1 EACH STRIP VI SCH ×2 (06:34→12:47)
[2018-12-17] MEDS: MIRALAX 17 GM POWD.PACK PO SCH (09:00)
[2018-12-17] MEDS: ZINC SULFATE 220 MG CAPSULE PO SCH (09:06)
[2018-12-17] MEDS: GLIMEPIRIDE 2 MG TABLET PO SCH (09:06)
[2018-12-17] MEDS: ASPIRIN 81 MG TAB.CHEW PO SCH (09:06)
[2018-12-17] MEDS: FUROSEMIDE 20 MG TABLET PO SCH (09:06)
[2018-12-17] MEDS: LOSARTAN POTASSIUM 25 MG TABLET PO SCH (09:20)
[2018-12-17] MEDS: METOPROLOL SUCCINATE XL 50 MG TAB.SR.24H PO SCH (09:21)
[2018-12-17] MEDS: NEOMY/BACITRAC/POLYMI OINT 28.35 GM TUBE TOP SCH (09:22)
[2018-12-17] MEDS: MUPIROCIN 2% OINT 22 GM TUBE NS SCH (09:23)
[2018-12-17] MEDS: NYSTATIN OINTMENT 15 GM TUBE TOP SCH (09:23)
[2018-12-17] MEDS: Z GUARD REMEDY PASTE 57 GM TUBE TOP SCH (09:24)
[2018-12-17] MEDS: APIXABAN 5 MG TABLET PO SCH (09:28)
[2018-12-17] MEDS: OXYCODONE/APAP 5-325 MG TABLET PO PRN (09:46)
[2018-12-17 10:30] VITALS: BP 166/54
[2018-12-17 11:33] VITALS: BP 166/55
[2018-12-17] MEDS ORDERED: FURO20TA4 PO (11:36)
[2018-12-17] MEDS ORDERED: APIX5TAB PO (11:36)
[2018-12-17] MEDS ORDERED: LOSA25TA3 PO (11:36)
[2018-12-17] MEDS: CEFTRIAXONE 1 G in IV DEXTROSE 5% 50 ML IV SCH (13:08)
[2018-12-17 15:14] VITALS: BP 148/49
== END 2018-12-17 15:30 | disposition home health service (06) | DRG 291 ==
LOC: ER 09:21 → TELE3 11:46 → MEDSURG3 12-16 15:00
PROVIDERS: ADMIT Internal Medicine; ATTEND Internal Medicine
DX: I13.0 Hypertensive heart and chronic kidney disease with heart failure and stage 1 through stage 4 chronic kidney disease, or unspecified chronic kidney disease (principal); I50.33 Acute on chronic diastolic (congestive) heart failure; E43 Unspecified severe protein-calorie malnutrition; J84.9 Interstitial pulmonary disease, unspecified; I82.622 Acute embolism and thrombosis of deep veins of left upper extremity; N39.0 Urinary tract infection, site not specified; D68.59 Other primary thrombophilia; J98.11 Atelectasis; E66.9 Obesity, unspecified; Z68.34 Body mass index [BMI] 34.0-34.9, adult; I25.10 Atherosclerotic heart disease of native coronary artery without angina pectoris; Z95.5 Presence of coronary angioplasty implant and graft; J84.10 Pulmonary fibrosis, unspecified; J47.9 Bronchiectasis, uncomplicated; R07.89 Other chest pain; I27.20 Pulmonary hypertension, unspecified; I08.0 Rheumatic disorders of both mitral and aortic valves; E11.22 Type 2 diabetes mellitus with diabetic chronic kidney disease; E11.65 Type 2 diabetes mellitus with hyperglycemia; N18.2 Chronic kidney disease, stage 2 (mild); E78.5 Hyperlipidemia, unspecified; D50.9 Iron deficiency anemia, unspecified; Z74.09 Other reduced mobility; E83.42 Hypomagnesemia; I50.82 Biventricular heart failure; I70.0 Atherosclerosis of aorta; J44.9 Chronic obstructive pulmonary disease, unspecified; J84.112 Idiopathic pulmonary fibrosis; K44.9 Diaphragmatic hernia without obstruction or gangrene; K56.41 Fecal impaction; M10.9 Gout, unspecified; M19.90 Unspecified osteoarthritis, unspecified site; M51.37 Other intervertebral disc degeneration, lumbosacral region; N32.81 Overactive bladder; Z87.440 Personal history of urinary (tract) infections; Z91.81 History of falling; Z90.49 Acquired absence of other specified parts of digestive tract; Z88.5 Allergy status to narcotic agent; Z87.01 Personal history of pneumonia (recurrent); Z87.891 Personal history of nicotine dependence; Z86.73 Personal history of transient ischemic attack (TIA), and cerebral infarction without residual deficits; Z82.3 Family history of stroke; Z79.4 Long term (current) use of insulin; Z79.02 Long term (current) use of antithrombotics/antiplatelets; Z79.899 Other long term (current) drug therapy; N20.0 Calculus of kidney; K76.0 Fatty (change of) liver, not elsewhere classified; K57.30 Diverticulosis of large intestine without perforation or abscess without bleeding
CPT/HCPCS: 36415; 70030-TC; 71045; 71270; 83550; 83605; 83735; 84100; 84443; 85025; 85730; 87040; 87086; 93005; 93307; A4217; A4663; G0378; J0696; J1815; J1940; J2405; J3475; J3490; J3590; J7050; J7060